=== PATIENT | female | born 1955 | race Caucasian/White ===

== ENCOUNTER 2020-08-06 13:45 | Outpatient (REF) | payer MEDICARE, SELFPAY ==
[2020-08-06 17:03] LABS: Anion Gap 18 (12-20); Blood Urea Nitrogen 17 mg/dL (9-16); Calcium 8.9 mg/dL (8.4-10.2); Carbon Dioxide 23 mmol/L (22-29); Chloride 107 mmol/L (96-108); Cholesterol 159 mg/dL; Estimated Glomerular Filt Rate 57; Glucose Fasting 94 mg/dL (60-99); HDL Cholesterol 48 mg/dL; LDL Cholesterol Calculated 82 mg/dl; Sodium 143 mmol/L (135-145); Triglycerides 149 mg/dL
== END 2020-08-06 13:46 | disposition home or self-care (01) ==
LOC: HO.HMGCLDS 13:45
PROVIDERS: PCP Internal Medicine; Visit Provider Internal Medicine
DX: E78.9 Disorder of lipoprotein metabolism, unspecified (principal); I10 Essential (primary) hypertension; F41.1 Generalized anxiety disorder; G47.9 Sleep disorder, unspecified; R10.13 Epigastric pain; Z72.0 Tobacco use
CPT/HCPCS: 36415; 80048; 80061

== ENCOUNTER 2021-02-27 12:06 | Outpatient (REF) | payer MEDICARE, SELFPAY ==
[2021-02-27 14:00] LABS: MANUAL DIFF FLAG NO
[2021-02-27 14:33] LABS: Alanine Aminotransferase 16 U/L (0-31); Albumin Level 3.9 g/dL (3.5-5.0); Alkaline Phosphatase 91 U/L (39-117); Anion Gap 14 (12-20); Aspartate Amino Transferase 16 U/L (5-31); Bilirubin Total 0.6 mg/dL (0.0-1.0); Blood Urea Nitrogen 13 mg/dL (9-16); Calcium 9.4 mg/dL (8.4-10.2); Carbon Dioxide 24 mmol/L (22-29); Chloride 110 mmol/L (96-108); Cholesterol 142 mg/dL; Estimated Glomerular Filt Rate > 60; Glucose Fasting 106 mg/dL (60-99); HDL Cholesterol 47 mg/dL; LDL Cholesterol Calculated 74 mg/dl; Potassium 4.1 mmol/L (3.3-5.1); Sodium 144 mmol/L (135-145); Total Protein 6.2 g/dL (6.5-8.0); Triglycerides 107 mg/dL
[2021-02-27 14:40] LABS: Basophils Absolute Auto 0.1 X10*3/uL (0.0-0.2); Basophils Percent Auto 0.6 % (0-2); Eosinophils Absolute Auto 0.4 X10*3/uL (0.0-0.4); Eosinophils Percent Auto 4.7 % (0-4); Hematocrit 39.7 % (37-47); Hemoglobin 13.1 g/dl (12.0-16.0); Imm Gran Abs Auto 0.04 X10*3/uL (0.00-0.03); Imm Gran Pct Auto 0.5 % (0.0-0.4); Lymphocytes Percent Auto 23.3 % (20-40); Mean Corpuscular Hemoglobin 31.1 pg (27.0-33.0); Mean Corpuscular Volume 94.3 fL (80-98); Mean Platelet Volume 9.7 fL (9.4-12.3); Monocytes Absolute Auto 0.5 X10*3/uL (0.1-1.2); Monocytes Percent Auto 5.7 % (2-11); Neutrophils Absolute Auto 5.7 X10*3/uL (2.0-8.3); Neutrophils Percent Auto 65.2 % (45-73); Platelet Count 309 X10*3/uL (160-400); Red Blood Count 4.21 X10*6/uL (4.20-5.50); White Blood Count 8.8 X10*3/uL (4.8-10.8)
== END 2021-02-27 12:07 | disposition home or self-care (01) ==
LOC: HO.HMGCLDS 12:06
PROVIDERS: PCP Internal Medicine; Visit Provider Internal Medicine
DX: E78.9 Disorder of lipoprotein metabolism, unspecified (principal); I10 Essential (primary) hypertension; F41.1 Generalized anxiety disorder; G47.9 Sleep disorder, unspecified; R10.13 Epigastric pain; Z72.0 Tobacco use
CPT/HCPCS: 36415; 80053; 80061; 85025

== ENCOUNTER 2021-10-21 13:54 | Outpatient (REF) | payer MEDICARE, SELFPAY ==
[2021-10-21 16:18] LABS: MANUAL DIFF FLAG NO
[2021-10-21 16:23] LABS: Basophils Absolute Auto 0.1 X10*3/uL (0.0-0.2); Basophils Percent Auto 0.5 % (0-2); Eosinophils Absolute Auto 0.4 X10*3/uL (0.0-0.4); Eosinophils Percent Auto 4.1 % (0-4); Hematocrit 39.8 % (37.0-47.0); Hemoglobin 13.1 g/dl (12.0-16.0); Imm Gran Abs Auto 0.03 X10*3/uL (0.00-0.03); Imm Gran Pct Auto 0.3 % (0.0-0.4); Lymphocytes Absolute Auto 2.6 X10*3/uL (1.2-4.9); Lymphocytes Percent Auto 24.7 % (20-40); Mean Corpuscular HGB Conc 32.9 g/dl (31.0-35.0); Mean Corpuscular Hemoglobin 31.5 pg (27.0-33.0); Mean Corpuscular Volume 95.7 fL (80.0-98.0); Mean Platelet Volume 9.7 fL (9.4-12.3); Monocytes Absolute Auto 0.7 X10*3/uL (0.1-1.2); Monocytes Percent Auto 6.6 % (2-11); Neutrophils Absolute Auto 6.7 x10*3/uL (2.0-8.3); Neutrophils Percent Auto 63.8 % (45-73); Platelet Count 323 X10*3/uL (160-400); Red Blood Count 4.16 X10*6/uL (4.20-5.50); Red Cell Distribution Width 13.5 % (11.0-16.0); White Blood Count 10.5 X10*3/uL (4.8-10.8)
[2021-10-21 16:37] LABS: Alanine Aminotransferase 20 U/L (0-31); Albumin Level 3.8 g/dL (3.5-5.0); Alkaline Phosphatase 110 U/L (39-117); Anion Gap 13 (12-20); Aspartate Amino Transferase 18 U/L (5-31); Bilirubin Total 0.5 mg/dL (0.0-1.0); Blood Urea Nitrogen 13 mg/dL (9-16); Carbon Dioxide 22 mmol/L (22-29); Chloride 113 mmol/L (96-108); Cholesterol 152 mg/dL; Estimated Glomerular Filt Rate > 60; Glucose Fasting 119 mg/dL (60-99); HDL Cholesterol 45 mg/dL; LDL Cholesterol Calculated 86 mg/dl; Potassium 3.6 mmol/L (3.3-5.1); Sodium 144 mmol/L (135-145); Total Protein 6.5 g/dL (6.5-8.0); Triglycerides 106 mg/dL
== END 2021-10-21 13:55 | disposition home or self-care (01) ==
LOC: HO.HMGCLDS 13:54
PROVIDERS: PCP Internal Medicine; Visit Provider Internal Medicine
DX: R10.13 Epigastric pain (principal); I10 Essential (primary) hypertension; F41.1 Generalized anxiety disorder; E78.9 Disorder of lipoprotein metabolism, unspecified; G47.9 Sleep disorder, unspecified; Z72.0 Tobacco use
CPT/HCPCS: 36415; 80053; 80061; 85025

== ENCOUNTER 2022-02-18 14:49 | Outpatient (REF) | payer MEDICARE, SELFPAY ==
[2022-02-18 16:50] LABS: Estimated Average Glucose 105 mg/dL; Hemoglobin A1c % 5.3 %
[2022-02-18 16:54] LABS: Alanine Aminotransferase 20 U/L (0-31); Albumin Level 4.1 g/dL (3.5-5.0); Alkaline Phosphatase 101 U/L (39-117); Anion Gap 17 (12-20); Aspartate Amino Transferase 19 U/L (5-31); Bilirubin Total 0.4 mg/dL (0.0-1.0); Blood Urea Nitrogen 23 mg/dL (9-16); Calcium 9.2 mg/dL (8.4-10.2); Carbon Dioxide 24 mmol/L (22-29); Chloride 107 mmol/L (96-108); Estimated Glomerular Filt Rate 33; Glucose Random 128 mg/dL (60-115); Potassium 4.3 mmol/L (3.3-5.1); Sodium 144 mmol/L (135-145)
== END 2022-02-18 14:50 | disposition home or self-care (01) ==
LOC: HO.HMGCLDS 14:49
PROVIDERS: PCP Internal Medicine; Visit Provider Internal Medicine
DX: E78.9 Disorder of lipoprotein metabolism, unspecified (principal); F41.1 Generalized anxiety disorder; G47.9 Sleep disorder, unspecified; R10.13 Epigastric pain; R73.03 Prediabetes; I10 Essential (primary) hypertension
CPT/HCPCS: 36415; 80053; 83036

== ENCOUNTER 2022-03-04 10:29 | Outpatient (REF) | payer MEDICARE, SELFPAY ==
[2022-03-04 14:26] LABS: Anion Gap 17 (12-20); Blood Urea Nitrogen 20 mg/dL (9-16); Carbon Dioxide 25 mmol/L (22-29); Chloride 107 mmol/L (96-108); Estimated Glomerular Filt Rate 49; Potassium 4.1 mmol/L (3.3-5.1); Sodium 145 mmol/L (135-145)
== END 2022-03-04 10:30 | disposition home or self-care (01) ==
LOC: HO.HMGCLDS 10:29
PROVIDERS: PCP Internal Medicine; Visit Provider Internal Medicine
DX: R79.89 Other specified abnormal findings of blood chemistry (principal)
CPT/HCPCS: 36415; 80051; 82565; 84520

== ENCOUNTER 2022-08-28 12:43 | Outpatient (REF) | payer MEDICARE, SELFPAY ==
[2022-08-28 14:15] LABS: MANUAL DIFF FLAG NO
[2022-08-28 14:22] LABS: Basophils Percent Auto 0.3 % (0-2); Eosinophils Absolute Auto 0.4 X10*3/uL (0.0-0.4); Eosinophils Percent Auto 4.2 % (0-4); Hematocrit 41.7 % (37.0-47.0); Hemoglobin 13.4 g/dl (12.0-16.0); Imm Gran Abs Auto 0.04 X10*3/uL (0.00-0.03); Imm Gran Pct Auto 0.4 % (0.0-0.4); Lymphocytes Absolute Auto 2.2 X10*3/uL (1.2-4.9); Lymphocytes Percent Auto 23.6 % (20-40); Mean Corpuscular HGB Conc 32.1 g/dl (31.0-35.0); Mean Corpuscular Hemoglobin 31.1 pg (27.0-33.0); Mean Corpuscular Volume 96.8 fL (80.0-98.0); Mean Platelet Volume 10.1 fL (9.4-12.3); Monocytes Absolute Auto 0.7 X10*3/uL (0.1-1.2); Monocytes Percent Auto 7.9 % (2-11); Neutrophils Absolute Auto 5.9 x10*3/uL (2.0-8.3); Neutrophils Percent Auto 63.6 % (45-73); Platelet Count 299 X10*3/uL (160-400); Red Blood Count 4.31 X10*6/uL (4.20-5.50); Red Cell Distribution Width 13.8 % (11.0-16.0); White Blood Count 9.3 X10*3/uL (4.8-10.8)
[2022-08-28 14:53] LABS: Alanine Aminotransferase 16 U/L (0-31); Albumin Level 3.9 g/dL (3.5-5.0); Alkaline Phosphatase 83 U/L (39-117); Anion Gap 13 (12-20); Aspartate Amino Transferase 16 U/L (5-31); Bilirubin Total 0.4 mg/dL (0.0-1.0); Blood Urea Nitrogen 26 mg/dL (9-16); Carbon Dioxide 25 mmol/L (22-29); Chloride 111 mmol/L (96-108); Estimated Glomerular Filt Rate 41; Glucose Random 118 mg/dL (60-115); Potassium 4.5 mmol/L (3.3-5.1); Sodium 144 mmol/L (135-145); Total Protein 6.6 g/dL (6.5-8.0)
== END 2022-08-28 12:44 | disposition home or self-care (01) ==
LOC: HO.HMGCLDS 12:43
PROVIDERS: Visit Provider Internal Medicine
DX: E78.9 Disorder of lipoprotein metabolism, unspecified (principal); G47.9 Sleep disorder, unspecified; I10 Essential (primary) hypertension; R10.13 Epigastric pain; R39.15 Urgency of urination; R73.03 Prediabetes; F41.1 Generalized anxiety disorder
CPT/HCPCS: 36415; 80053; 85025

== ENCOUNTER 2022-12-22 15:02 | Outpatient (AMB) | payer MEDICARE, SELFPAY ==
[2022-12-22 15:03] VITALS: BP 116/70; PULSE 102; O2SAT 94; BMI 35.9
--- NOTE | 2022-12-22 15:03 | A.OFFPC_ITS ---
Vital Signs 12/22/22 15:03 Height 5 ft 2 in Weight 196 lb 2 oz BMI 35.9 BP 116/70 Blood Pressure Location Rt brachial Position Sitting Pulse 102 H Pulse Source Pulse Oximeter Pulse Oximetry (%) 94 Oxygen Delivery Method Room Air Intake Visit Reasons: Medication follow up Allergies tetracycline Allergy (Unknown, Verified 12/22/22 15:04) rash Medication List - Last Reconciled 12/22/22 by Corwin Samson MD albuterol sulfate 90 mcg/actuation (ProAir HFA) 1 inh inhalation QID PRN 30 days amlodipine 5 mg PO DAILY 90 days aspirin 1 tab PO DAILY 90 days atorvastatin 80 mg PO DAILY 30 days [Bp Monitor As directed] clopidogrel 75 mg PO DAILY commode (bedside commode) As directed duloxetine 30 mg PO QAM lisinopril 40 mg PO DAILY 30 days metoprolol tartrate 50 mg PO BID mirtazapine 30 mg PO BEDTIME omeprazole 20 mg PO DAILY walker wheeled walker with seat and brakes Tobacco use date assessed: 12/22/22 Fall risk assessment: No Falls in past year Last assessed Fall Risk: 12/22/22 Dental Screening Dental Screen Date: 12/22/22 Did you have a dental visit in the last 12 months?: No Did you have a dental problem in the last 6 months where you did not have access to dental care?: No Was dental information given to patient?: No HPI Medication follow up HPI0 Details Patient is 67-year-old female came in today for her regular follow-up visit. Patient is complaining that she cannot hear out of her left ear on examination her neck ear is filled with backs and right ear was excessive backs Her ears were irrigated today with good result Blood pressure is stable, patient is on amlodipine 10 mg daily and lisinopril 40 mg no side effects patient is tolerating medication.? Impaired fasting sugar:? Diet-controlled Patient is doing well with mirtazapine at night to sleep in duloxetine 30 mg for depression.? Moods are stable.? Patient is also on metoprolol and clopidogrel along with atorvastatin 80 mg she has a history of CVA. Patient is ex-smoker GERD is stable with omeprazole. BMI is elevated need to lose weight Follow-up 3 months.?? [facility] Medical History Anxiety, generalized Difficulty sleeping Dyspepsia History of stroke Hypertension, essential Lipid disorder Tobacco abuse Family History Father No problems noted. Mother No problems noted. Brother No problems noted. Son No problems noted. Daughter No problems noted. Sister No problems noted. Sister No problems noted. Other Mental health disorder Substance use disorder Social History Housing: Apartment Alcohol intake: former Year quit: 2019 Patient Tobacco Use Status: Former Tobacco user Cigarette Packs Per Day: 0.5 e-Cigarette/Vaping Use: Never Used service: No Current occupational status: retired Cognitive needs: No Hearing needs: No Vision needs: No Questionnaire Thrive Questionnaire Date Thrive assessed: 02/18/22 AUDIT C Alcohol Use Questionnaire (AUDIT-C) 1. How often do you have a drink containing alcohol?: Never 3. How often do you have six or more drinks on one occasion?: Never Total Score: 0 Score Reviewed/Action Taken: Yes DAYANA-7 AMB Questionnaire DAYANA-7 Date DAYANA - 7 assessed: 02/18/22 Source: Developed by Drs. Joe Sanches, Breann Lee, Byron Garza and colleagues, with an educational jah from [employer]. Review of Systems Const Denies chills and Denies fever(s) ENT Denies epistaxis and Denies nasal discharge Card Denies chest pain Resp Denies chest congestion, Denies cough and Denies hemoptysis GI Denies diarrhea and Denies nausea Skin/Breast Denies rash Neuro Reports no additional complaints Psych Reports no additional complaints Endo Reports no additional complaints Physical exam (Primary Care) Vital Signs: Last Vital Signs Pulse 102 H 12/22/22 15:03 BP 116/70 12/22/22 15:03 Pulse Ox 94 12/22/22 15:03 Oxygen Delivery Method Room Air 12/22/22 15:03 BMI result Body Mass Index 35.9 Tobacco/Smoking Status: Tobacco use Status Tobacco use date assessed 12/22/22 12/22/22 15:05 Patient Tobacco Use Status Former Tobacco user 12/22/22 15:05 e-Cigarette/Vaping Use Never Used 12/22/22 15:05 Thrive Assessment: Date of Thrive Assessment Date Thrive assessed 02/18/22 12/22/22 15:05 Const General: cooperative, comfortable and no acute distress Orientation/consciousness: patient oriented x3 HENMT Other: Both ears are filled with cerumen Head: Yes normocephalic Eyes General: appearance normal, both eyes and all related structures Neck Neck: Yes supple Resp Effort & Inspection: normal respiratory effort, no cough and no stridor Cardio Rhythm: regular rhythm Heart sounds: S1 normal heart sound present and S2 normal heart sound present Skin General skin exam: turgor normal Neuro General: patient oriented x3, tone normal and moves all extremities Extrem Right lower extremity: no edema Left lower extremity: no edema Office Procedures Cerumen Removal From which ear canal was the cerumen removed: bilateral Removal: irrigation Notes: no complications and ear canal clear [id number] Irrigation/Lavage Assessment and Plan Assessment & Plan (1) Hypertension, essential: Code(s): I10 - Essential (primary) hypertension (2) Lipid disorder: Code(s): E78.9 - Disorder of lipoprotein metabolism, unspecified (3) Anxiety, generalized: Code(s): F41.1 - Generalized anxiety disorder (4) Difficulty sleeping: Code(s): G47.9 - Sleep disorder, unspecified (5) Dyspepsia: Code(s): R10.13 - Epigastric pain (6) Pre-diabetes: Code(s): R73.03 - Prediabetes (7) Impacted cerumen, bilateral: Code(s): H61.23 - Impacted cerumen, bilateral Plan Patient is 67-year-old female came in today for her regular follow-up visit. Patient is complaining that she cannot hear out of her left ear on examination her neck ear is filled with backs and right ear was excessive backs Her ears were irrigated today with good result Blood pressure is stable, patient is on amlodipine 10 mg daily and lisinopril 40 mg no side effects patient is tolerating medication.? Impaired fasting sugar:? Diet-controlled Patient is doing well with mirtazapine at night to sleep in duloxetine 30 mg for depression.? Moods are stable.? Patient is also on metoprolol and clopidogrel along with atorvastatin 80 mg she has a history of CVA. Patient is ex-smoker GERD is stable with omeprazole. BMI is elevated need to lose weight Follow-up 3 months.?? Coding Level of Care Code Est Pt Level 4 (24978) Diagnoses Hypertension, essential I10 Lipid disorder E78.9 Anxiety, generalized F41.1 Difficulty sleeping G47.9 Dyspepsia R10.13 Pre-diabetes R73.03 Impacted cerumen, bilateral H61.23 CPT Codes Office Procedure - CPT: 27411-Kcr Irrigation/Lavage ([id number])
== END 2022-12-22 15:48 | disposition home or self-care (01) ==
PROVIDERS: Visit Provider Internal Medicine
DX: I10 Essential (primary) hypertension (principal); E78.9 Disorder of lipoprotein metabolism, unspecified; F41.1 Generalized anxiety disorder; G47.9 Sleep disorder, unspecified; R10.13 Epigastric pain; R73.03 Prediabetes; H61.23 Impacted cerumen, bilateral
CPT/HCPCS: 69209; 99214

== ENCOUNTER 2023-03-24 15:34 | Outpatient (AMB) | payer MEDICARE, SELFPAY ==
[2023-03-24 15:39] VITALS: BP 98/62; PULSE 89; O2SAT 95; BMI 35.9
--- NOTE | 2023-03-24 15:39 | A.OFFPC_ITS ---
Vital Signs 03/24/23 15:39 Height 5 ft 2 in Weight 196 lb 6 oz BMI 35.9 BP 98/62 Blood Pressure Location Rt brachial Position Sitting Pulse 89 Pulse Source Pulse Oximeter Pulse Oximetry (%) 95 Oxygen Delivery Method Room Air Intake Visit Reasons: 3 mo Allergies tetracycline Allergy (Unknown, Verified 03/24/23 15:42) rash Medication List - Last Reconciled 03/24/23 by Corwin Samson MD albuterol sulfate 90 mcg/actuation (ProAir HFA) 1 inh inhalation QID PRN 30 days amlodipine 5 mg PO DAILY 90 days aspirin 1 tab PO DAILY 90 days atorvastatin 80 mg PO DAILY 90 days [Bp Monitor As directed] clopidogrel 75 mg PO DAILY commode (bedside commode) As directed duloxetine 30 mg PO QAM lisinopril 40 mg PO DAILY 90 days metoprolol tartrate 50 mg PO BID mirtazapine 30 mg PO BEDTIME omeprazole 20 mg PO DAILY walker wheeled walker with seat and brakes Tobacco use date assessed: 03/24/23 Fall risk assessment: No Falls in past year Last assessed Fall Risk: 03/24/23 Dental Screening Dental Screen Date: 03/24/23 Did you have a dental visit in the last 12 months?: No Did you have a dental problem in the last 6 months where you did not have access to dental care?: No Was dental information given to patient?: Patient declined HPI 3 mo HPI Details Patient is 67-year-old female came in today for her regular follow-up visit. Patient says that when she is in shower and she wash her hair she start getting very dizzy and then nauseous and sometime she will med Otherwise she is okay I have sent meclizine she is to take that 1 hour before the shower I would recommend that she sit-down when she is taking a shower and do not move her head too much while shampooing I also noticed that her blood pressure is running low and it is 98/62 today. I am holding her amlodipine she may continue with lisinopril 40 mg and me toprolol.? Impaired fasting sugar:? Diet-controlled Patient is doing well with mirtazapine at night to sleep in duloxetine 30 mg for depression.? Moods are stable.? Patient is also on metoprolol and clopidogrel along with atorvastatin 80 mg she has a history of CVA. Patient is ex-smoker GERD is stable with omeprazole. BMI is elevated need to lose weight Follow-up 3 months.?? [facility] Medical History Lipid disorder Hypertension, essential Anxiety, generalized History of stroke Difficulty sleeping Dyspepsia Tobacco abuse Family History Father No problems noted. Mother No problems noted. Brother No problems noted. Son No problems noted. Daughter No problems noted. Sister No problems noted. Sister No problems noted. Other Mental health disorder Substance use disorder Social History Housing: Apartment Alcohol intake: former Year quit: 2019 Patient Tobacco Use Status: Former Tobacco user Cigarette Packs Per Day: 0.5 e-Cigarette/Vaping Use: Never Used service: No Current occupational status: retired Cognitive needs: No Hearing needs: No Vision needs: No Questionnaire Thrive Questionnaire Date Thrive assessed: 02/18/22 AUDIT C Alcohol Use Questionnaire (AUDIT-C) 1. How often do you have a drink containing alcohol?: Never 3. How often do you have six or more drinks on one occasion?: Never Total Score: 0 Score Reviewed/Action Taken: Yes DAYANA-7 AMB Questionnaire DAYANA-7 Date DAYANA - 7 assessed: 02/18/22 Source: Developed by Drs. Joe Sanches, Breann Lee, Byron Garza and colleagues, with an educational jah from [employer]. Review of Systems Const Denies chills and Denies fever(s) ENT Denies epistaxis and Denies nasal discharge Card Denies chest pain Resp Denies chest congestion, Denies cough and Denies hemoptysis GI Denies diarrhea and Denies nausea Skin/Breast Denies rash Neuro Reports no additional complaints Psych Reports no additional complaints Endo Reports no additional complaints Physical exam (Primary Care) Vital Signs: Last Vital Signs Pulse 89 03/24/23 15:39 BP 98/62 03/24/23 15:39 Pulse Ox 95 03/24/23 15:39 Oxygen Delivery Method Room Air 03/24/23 15:39 BMI result Body Mass Index 35.9 Tobacco/Smoking Status: Tobacco use Status Tobacco use date assessed 03/24/23 03/24/23 15:43 Patient Tobacco Use Status Former Tobacco user 03/24/23 15:43 e-Cigarette/Vaping Use Never Used 03/24/23 15:43 Thrive Assessment: Date of Thrive Assessment Date Thrive assessed 02/18/22 03/24/23 15:43 Const General: cooperative, comfortable and no acute distress Orientation/consciousness: patient oriented x3 HENMT Other: No signs of ear infection Head: Yes normocephalic Eyes General: appearance normal, both eyes and all related structures Neck Neck: Yes supple Resp Effort & Inspection: normal respiratory effort, no cough and no stridor Cardio Rhythm: regular rhythm Heart sounds: S1 normal heart sound present and S2 normal heart sound present Skin General skin exam: turgor normal Neuro Other: Vertigo test positive General: patient oriented x3, tone normal and moves all extremities Extrem Right lower extremity: no edema Left lower extremity: no edema Assessment and Plan Assessment & Plan (1) Hypertension, essential: Code(s): I10 - Essential (primary) hypertension (2) Anxiety, generalized: Code(s): F41.1 - Generalized anxiety disorder (3) Vertigo: Code(s): R42 - Dizziness and giddiness (4) Lipid disorder: Code(s): E78.9 - Disorder of lipoprotein metabolism, unspecified (5) Pre-diabetes: Code(s): R73.03 - Prediabetes (6) Difficulty sleeping: Code(s): G47.9 - Sleep disorder, unspecified (7) Dyspepsia: Code(s): R10.13 - Epigastric pain Plan Patient is 67-year-old female came in today for her regular follow-up visit. Patient says that when she is in shower and she wash her hair she start getting very dizzy and then nauseous and sometime she will med Otherwise she is okay I have sent meclizine she is to take that 1 hour before the shower I would recommend that she sit-down when she is taking a shower and do not move her head too much while shampooing I also noticed that her blood pressure is running low and it is 98/62 today. I am holding her amlodipine she may continue with lisinopril 40 mg and metoprolol.? Impaired fasting sugar:? Diet-controlled Patient is doing well with mirtazapine at night to sleep in duloxetine 30 mg for depression.? Moods are stable.? Patient is also on metoprolol and clopidogrel along with atorvastatin 80 mg she has a history of CVA. Patient is ex-smoker GERD is stable with omeprazole. BMI is elevated need to lose weight Follow-up 3 months.?? Orders: Orders Complete Blood Count Auto Diff Today E78.9 - Disorder of lipoprotein metabolism, unspecified, F41.1 - Generalized anxiety disorder, G47.9 - Sleep disorder, unspecified, I10 - Essential (primary) hypertension, R10.13 - Epigastric pain, R73.03 - Prediabetes Comprehensive Met. Panel Today E78.9 - Disorder of lipoprotein metabolism, unspecified, F41.1 - Generalized anxiety disorder, G47.9 - Sleep disorder, unspecified, I10 - Essential (primary) hypertension, R10.13 - Epigastric pain, R73.03 - Prediabetes Medications: New meclizine 25 mg PO DAILY PRN 30 tabs 0RF 1 hour before shower On Hold amlodipine Hold Comment: Doctor's Order 5 mg PO DAILY 90 days 90 tabs 1RF Coding Level of Care Code Est Pt Level 4 (93793) Diagnoses Hypertension, essential I10 Anxiety, generalized F41.1 Vertigo R42 Lipid disorder E78.9 Pre-diabetes R73.03 Difficulty sleeping G47.9 Dyspepsia R10.13
== END 2023-03-24 15:55 | disposition home or self-care (01) ==
PROVIDERS: PCP Internal Medicine; Visit Provider Internal Medicine
DX: I10 Essential (primary) hypertension (principal); F41.1 Generalized anxiety disorder; R42 Dizziness and giddiness; E78.9 Disorder of lipoprotein metabolism, unspecified; R73.03 Prediabetes; G47.9 Sleep disorder, unspecified; R10.13 Epigastric pain
CPT/HCPCS: 99214

== ENCOUNTER 2023-04-06 14:29 | Outpatient (REF) | payer MEDICARE, SELFPAY ==
[2023-04-06 16:19] LABS: MANUAL DIFF FLAG NO
[2023-04-06 16:46] LABS: Basophils Percent Auto 0.2 % (0-2); Eosinophils Absolute Auto 0.1 X10*3/uL (0.0-0.4); Eosinophils Percent Auto 0.6 % (0-4); Hematocrit 41.3 % (37.0-47.0); Hemoglobin 13.6 g/dl (12.0-16.0); Imm Gran Abs Auto 0.09 X10*3/uL (0.00-0.03); Imm Gran Pct Auto 0.7 % (0.0-0.4); Lymphocytes Absolute Auto 1.8 X10*3/uL (1.2-4.9); Lymphocytes Percent Auto 14.4 % (20-40); Mean Corpuscular HGB Conc 32.9 g/dl (31.0-35.0); Mean Corpuscular Hemoglobin 30.8 pg (27.0-33.0); Mean Corpuscular Volume 93.4 fL (80.0-98.0); Mean Platelet Volume 9.7 fL (9.4-12.3); Monocytes Absolute Auto 0.8 X10*3/uL (0.1-1.2); Monocytes Percent Auto 6.1 % (2-11); Neutrophils Absolute Auto 9.8 x10*3/uL (2.0-8.3); Platelet Count 297 X10*3/uL (160-400); Red Blood Count 4.42 X10*6/uL (4.20-5.50); Red Cell Distribution Width 14.6 % (11.0-16.0); White Blood Count 12.5 X10*3/uL (4.8-10.8)
[2023-04-06 17:03] LABS: Alanine Aminotransferase 17 U/L (0-31); Albumin Level 3.9 g/dL (3.5-5.0); Alkaline Phosphatase 88 U/L (39-117); Anion Gap 17 (12-20); Aspartate Amino Transferase 18 U/L (5-31); Bilirubin Total 0.3 mg/dL (0.0-1.0); Blood Urea Nitrogen 23 mg/dL (9-16); Carbon Dioxide 22 mmol/L (22-29); Chloride 108 mmol/L (96-108); Estimated Glomerular Filt Rate 54; Glucose Random 109 mg/dL (60-115); Sodium 143 mmol/L (135-145)
== END 2023-04-06 14:30 | disposition home or self-care (01) ==
LOC: HO.HMGCLDS 14:29
PROVIDERS: PCP Internal Medicine; Visit Provider Internal Medicine
DX: I10 Essential (primary) hypertension (principal); F41.1 Generalized anxiety disorder; E78.9 Disorder of lipoprotein metabolism, unspecified; R73.03 Prediabetes; G47.9 Sleep disorder, unspecified; R10.13 Epigastric pain
CPT/HCPCS: 36415; 80053; 85025

== ENCOUNTER 2023-04-08 08:13 | Outpatient (AMB) | payer MEDICARE, SELFPAY ==
--- NOTE | 2023-04-08 08:53 | A.OFFPC_ITS ---
Intake Visit Reasons: 2W follow up Allergies tetracycline Allergy (Unknown, Verified 04/08/23 08:54) rash Medication List - Last Reconciled 04/08/23 by Corwin Samson MD albuterol sulfate 90 mcg/actuation (ProAir HFA) 1 inh inhalation QID PRN 30 days aspirin 1 tab PO DAILY 90 days atorvastatin 80 mg PO DAILY 90 days [Bp Monitor As directed] clopidogrel 75 mg PO DAILY commode (bedside commode) As directed duloxetine 30 mg PO QAM lisinopril 40 mg PO DAILY 90 days meclizine 25 mg PO DAILY PRN metoprolol tartrate 50 mg PO BID mirtazapine 30 mg PO BEDTIME omeprazole 20 mg PO DAILY walker wheeled walker with seat and brakes Tobacco use date assessed: 04/08/23 Fall risk assessment: No Falls in past year Last assessed Fall Risk: 04/08/23 Dental Screening Dental Screen Date: 04/08/23 Did you have a dental visit in the last 12 months?: No Did you have a dental problem in the last 6 months where you did not have access to dental care?: No Was dental information given to patient?: No HPI 2W follow up HPI Details Patient was complaining of severe dizziness when I saw her last few days ago I have sent meclizine 25 mg, patient says that her pharmacy has not mail it to her yet I have sent the medication to her local pharmacy so she can pick it up and start taking it. I also held amlodipine that she was taking for blood pressure , I have told her to monitor blood pressure at home so we know that her blood pressure is running fine , she is still taking lisinopril 40 mg and metoprolol 50 mg b.i.d. But patient has not done that yet. She says that her daughter can check her blood pressure she will have her start monitoring it. We will book another appointment in 2 weeks to follow-up [facility] Medical History Lipid disorder Hypertension, essential Anxiety, generalized History of stroke Difficulty sleeping Dyspepsia Tobacco abuse Family History Father No problems noted. Mother No problems noted. Brother No problems noted. Son No problems noted. Daughter No problems noted. Sister No problems noted. Sister No problems noted. Other Mental health disorder Substance use disorder Social History Housing: Apartment Alcohol intake: former Year quit: 2019 Patient Tobacco Use Status: Former Tobacco user Cigarette Packs Per Day: 0.5 e-Cigarette/Vaping Use: Never Used service: No Current occupational status: retired Cognitive needs: No Hearing needs: No Vision needs: No Questionnaire Thrive Questionnaire Date Thrive assessed: 02/18/22 AUDIT C Alcohol Use Questionnaire (AUDIT-C) 1. How often do you have a drink containing alcohol?: Never 3. How often do you have six or more drinks on one occasion?: Never Total Score: 0 Score Reviewed/Action Taken: Yes DAYANA-7 AMB Questionnaire DAYANA-7 Date DAYANA - 7 assessed: 02/18/22 Source: Developed by Drs. Joe Sanches, Breann Lee, Byron Garza and colleagues, with an educational jah from [employer]. Review of Systems Const Denies chills and Denies fever(s) ENT Denies epistaxis and Denies nasal discharge Card Denies chest pain Resp Denies chest congestion, Denies cough and Denies hemoptysis GI Denies diarrhea and Denies nausea Skin/Breast Denies rash Neuro Reports no additional complaints Psych Reports no additional complaints Endo Reports no additional complaints Physical exam (Primary Care) Tobacco/Smoking Status: Tobacco use Status Tobacco use date assessed 04/08/23 04/08/23 08:55 Patient Tobacco Use Status Former Tobacco user 04/08/23 08:55 e-Cigarette/Vaping Use Never Used 04/08/23 08:55 Thrive Assessment: Date of Thrive Assessment Date Thrive assessed 02/18/22 04/08/23 08:55 Telehealth Telehealth Location of provider rendering services: practice address Location of patient: address on file Patient Identification confirmed using: Name, : Yes Telehealth method: voice only Patient verbally consented to treatment: Yes Patient verbally consented to billing insurance company: Yes Patient informed of any privacy concerns related to visit: Yes Minutes spent on Phone/Video with Pt.: 13 Assessment and Plan Assessment & Plan (1) Vertigo: Code(s): R42 - Dizziness and giddiness (2) Low blood pressure: Code(s): I95.9 - Hypotension, unspecified Qualifiers: Hypotension type: hypotension due to drug Qualified Code(s): I95.2 - Hypotension due to drugs Plan Patient was complaining of severe dizziness when I saw her last few days ago I have sent meclizine 25 mg, patient says that her pharmacy has not mail it to her yet I have sent the medication to her local pharmacy so she can pick it up and start taking it. I also held amlodipine that she was taking for blood pressure , I have told her to monitor blood pressure at home so we know that her blood pressure is running fine , she is still taking lisinopril 40 mg and metoprolol 50 mg b.i.d. But patient has not done that yet. She says that her daughter can check her blood pressure she will have her start monitoring it. We will book another appointment in 2 weeks to follow-up Medications: Refilled meclizine 25 mg PO DAILY PRN 30 tabs 0RF 1 hour before shower meclizine 25 mg PO DAILY PRN 30 tabs 0RF 1 hour before shower meclizine 25 mg PO DAILY PRN 30 tabs 0RF 1 hour before shower Coding Level of Care Code Tele Est Pt Level 3 (56956) Diagnoses Vertigo R42 Hypotension due to drugs I95.2 Hypotension type: hypotension due to drug
== END 2023-04-08 10:04 | disposition home or self-care (01) ==
LOC: HO.HMGC 08:13
PROVIDERS: PCP Internal Medicine; Visit Provider Internal Medicine
DX: R42 Dizziness and giddiness (principal); I95.2 Hypotension due to drugs
CPT/HCPCS: 99442

== ENCOUNTER 2023-06-03 08:33 | Outpatient (AMB) | payer MEDICARE, SELFPAY ==
--- NOTE | 2023-06-03 08:42 | MHC.PC.OV ---
Vital Signs 06/03/23 08:43 Height 5 ft 2 in Intake Visit Reasons: Req Jury Duty Letter~ Allergies tetracycline Allergy (Unknown, Verified 06/03/23 08:43) rash Medication List - Last Reconciled 06/03/23 by Corwin Samson MD albuterol sulfate 90 mcg/actuation (ProAir HFA) 1 inh inhalation QID PRN 30 days aspirin 1 tab PO DAILY 90 days atorvastatin 80 mg PO DAILY 90 days [Bp Monitor As directed] clopidogrel 75 mg PO DAILY commode (bedside commode) As directed duloxetine 30 mg PO QAM lisinopril 40 mg PO DAILY 90 days meclizine 25 mg PO DAILY PRN metoprolol tartrate 50 mg PO BID mirtazapine 30 mg PO BEDTIME omeprazole 20 mg PO DAILY walker wheeled walker with seat and brakes Tobacco use date assessed: 06/03/23 Fall risk assessment: No Falls in past year Last assessed Fall Risk: 06/03/23 Dental Screening Dental Screen Date: 06/03/23 Did you have a dental visit in the last 12 months?: No Did you have a dental problem in the last 6 months where you did not have access to dental care?: No Was dental information given to patient?: No HPI Req Jury Duty Letter~ HPI Details Patient is 68-year-old female this is a tele medicine visit Patient is requesting to be excused from jury duty, on basis of memory issues Patient also have history of stroke and it is difficult for her to sit down for prolonged periods of time. Is she did not remember the date of jury she is going to talk to her daughter and get back to us and we will generate a letter for the patient Badge #:[id number] It will be faxed to [phone] [facility] Medical History Lipid disorder Hypertension, essential Anxiety, generalized History of stroke Difficulty sleeping Dyspepsia Tobacco abuse Family History Father No problems noted. Mother No problems noted. Brother No problems noted. Son No problems noted. Daughter No problems noted. Sister No problems noted. Sister No problems noted. Other Mental health disorder Substance use disorder Social History Housing: Apartment Alcohol intake: former Year quit: 2019 Patient Tobacco Use Status: Former Tobacco user Cigarette Packs Per Day: 0.5 e-Cigarette/Vaping Use: Never Used service: No Current occupational status: retired Cognitive needs: No Hearing needs: No Vision needs: No Questionnaire Thrive Questionnaire Date Thrive assessed: 02/18/22 AUDIT C Alcohol Use Questionnaire (AUDIT-C) 1. How often do you have a drink containing alcohol?: Never 3. How often do you have six or more drinks on one occasion?: Never Total Score: 0 Score Reviewed/Action Taken: Yes DAYANA-7 AMB Questionnaire DAYANA-7 Date DAYANA - 7 assessed: 02/18/22 Source: Developed by Drs. Joe Sanches, Breann Lee, Byron Garza and colleagues, with an educational jah from [employer]. Review of Systems Const Denies chills and Denies fever(s) ENT Denies epistaxis and Denies nasal discharge Card Denies chest pain Resp Denies chest congestion, Denies cough and Denies hemoptysis GI Denies diarrhea and Denies nausea Skin/Breast Denies rash Neuro Reports no additional complaints Psych Reports no additional complaints Endo Reports no additional complaints Physical exam (Primary Care) Tobacco/Smoking Status: Tobacco use Status Tobacco use date assessed 06/03/23 06/03/23 08:44 Patient Tobacco Use Status Former Tobacco user 06/03/23 08:44 e-Cigarette/Vaping Use Never Used 06/03/23 08:44 Thrive Assessment: Date of Thrive Assessment Date Thrive assessed 02/18/22 06/03/23 08:44 Telehealth Telehealth Location of provider rendering services: practice address Location of patient: address on file Patient Identification confirmed using: Name, : Yes Telehealth method: voice only Patient verbally consented to treatment: Yes Patient verbally consented to billing insurance company: Yes Patient informed of any privacy concerns related to visit: Yes Minutes spent on Phone/Video with Pt.: 13 Assessment and Plan Assessment & Plan (1) Memory changes: Code(s): R41.3 - Other amnesia (2) History of stroke: Code(s): Z86.73 - Personal history of transient ischemic attack (TIA), and cerebral infarction without residual deficits Plan Patient is 68-year-old female this is a tele medicine visit Patient is requesting to be excused from jury duty, on basis of memory issues Patient also have history of stroke and it is difficult for her to sit down for prolonged periods of time. Is she did not remember the date of jury she is going to talk to her daughter and get back to us and we will generate a letter for the patient Badge #:[id number] It will be faxed to [phone] Coding Level of Care Code Tele Est Pt Level 3 (79215) Diagnoses Memory changes R41.3 History of stroke Z86.73
== END 2023-06-03 09:33 | disposition home or self-care (01) ==
LOC: HO.HMGC 08:33
PROVIDERS: PCP Internal Medicine; Visit Provider Internal Medicine
DX: R41.3 Other amnesia (principal); Z86.73 Personal history of transient ischemic attack (TIA), and cerebral infarction without residual deficits
CPT/HCPCS: 99442

== ENCOUNTER 2023-06-25 15:12 | Outpatient (AMB) | payer MEDICARE, SELFPAY ==
[2023-06-25 15:28] VITALS: BP 116/74; PULSE 95; O2SAT 92; BMI 36.2
--- NOTE | 2023-06-25 15:28 | A.OFFPC_ITS ---
Vital Signs 06/25/23 15:28 Height 5 ft 2 in Weight 198 lb BMI 36.2 BP 116/74 Blood Pressure Location Lt brachial Position Sitting Pulse 95 Pulse Source Pulse Oximeter Pulse Oximetry (%) 92 Oxygen Delivery Method Room Air Intake Visit Reasons: 6 Month follow up Allergies tetracycline Allergy (Unknown, Verified 06/25/23 15:28) rash Medication List - Last Reconciled 06/25/23 by Corwin Samson MD albuterol sulfate 90 mcg/actuation (ProAir HFA) 1 inh inhalation QID PRN 30 days aspirin 1 tab PO DAILY 90 days atorvastatin 80 mg PO DAILY 90 days [Bp Monitor As directed] clopidogrel 75 mg PO DAILY commode (bedside commode) As directed duloxetine 30 mg PO QAM lisinopril 40 mg PO DAILY 90 days meclizine 25 mg PO DAILY PRN metoprolol tartrate 50 mg PO BID mirtazapine 30 mg PO BEDTIME omeprazole 20 mg PO DAILY walker wheeled walker with seat and brakes Tobacco use date assessed: 06/25/23 Last assessed Fall Risk: 06/25/23 Dental Screening Dental Screen Date: 06/25/23 HPI 6 Month follow up HPI Details Patient is 68-year-old female came in today for her regular follow-up visit. Dizziness is better with meclizine, mostly when she takes shower she feels dizzy She does have a shower stool Hypertension: Continue lisinopril 40 mg and metoprolol.? Impaired fasting sugar:? Diet-controlled Patient is doing well with mirtazapine at night to sleep in duloxetine 30 mg for depression.? Moods are stable.? Patient is also on metoprolol and clopidogrel along with atorvastatin 80 mg she has a history of CVA. Patient is ex-smoker GERD is stable with omeprazole. BMI is elevated need to lose weight Follow-up 3 months.??Labs are needed before visit [facility] Medical History Lipid disorder Hypertension, essential Anxiety, generalized History of stroke Difficulty sleeping Dyspepsia Tobacco abuse Family History Father No problems noted. Mother No problems noted. Brother No problems noted. Son No problems noted. Daughter No problems noted. Sister No problems noted. Sister No problems noted. Other Mental health disorder Substance use disorder Social History Housing: Apartment Alcohol intake: former Year quit: 2019 Patient Tobacco Use Status: Former Tobacco user Cigarette Packs Per Day: 0.5 e-Cigarette/Vaping Use: Never Used service: No Current occupational status: retired Cognitive needs: No Hearing needs: No Vision needs: No Questionnaire Thrive Questionnaire Date Thrive assessed: 02/18/22 AUDIT C Alcohol Use Questionnaire (AUDIT-C) 1. How often do you have a drink containing alcohol?: Never 3. How often do you have six or more drinks on one occasion?: Never Total Score: 0 Score Reviewed/Action Taken: Yes DAYANA-7 AMB Questionnaire DAYANA-7 Date DAYANA - 7 assessed: 02/18/22 Source: Developed by Drs. Joe Sanches, Breann Lee, Byron Garza and colleagues, with an educational jah from [employer]. Review of Systems Const Denies chills and Denies fever(s) ENT Denies epistaxis and Denies nasal discharge Card Denies chest pain Resp Denies chest congestion, Denies cough and Denies hemoptysis GI Denies diarrhea and Denies nausea Skin/Breast Denies rash Neuro Reports no additional complaints Psych Reports no additional complaints Endo Reports no additional complaints Physical exam (Primary Care) Vital Signs: Last Vital Signs Pulse 95 06/25/23 15:28 BP 116/74 06/25/23 15:28 Pulse Ox 92 06/25/23 15:28 Oxygen Delivery Method Room Air 06/25/23 15:28 BMI result Body Mass Index 36.2 Tobacco/Smoking Status: Tobacco use Status Tobacco use date assessed 06/25/23 06/25/23 15:29 Patient Tobacco Use Status Former Tobacco user 06/25/23 15:29 e-Cigarette/Vaping Use Never Used 06/25/23 15:29 Thrive Assessment: Date of Thrive Assessment Date Thrive assessed 02/18/22 06/25/23 15:29 Const General: cooperative, comfortable and no acute distress Orientation/consciousness: patient oriented x3 HENMT Head: Yes normocephalic Eyes General: appearance normal, both eyes and all related structures Neck Neck: Yes supple Resp Effort & Inspection: normal respiratory effort, no cough and no stridor Cardio Rhythm: regular rhythm Heart sounds: S1 normal heart sound present and S2 normal heart sound present Skin General skin exam: turgor normal Neuro General: patient oriented x3, tone normal and moves all extremities Extrem Right lower extremity: no edema Left lower extremity: no edema Assessment and Plan Assessment & Plan (1) Hypertension, essential: Code(s): I10 - Essential (primary) hypertension (2) Lipid disorder: Code(s): E78.9 - Disorder of lipoprotein metabolism, unspecified (3) Anxiety, generalized: Code(s): F41.1 - Generalized anxiety disorder (4) Dyspepsia: Code(s): R10.13 - Epigastric pain (5) Difficulty sleeping: Code(s): G47.9 - Sleep disorder, unspecified (6) History of stroke: Code(s): Z86.73 - Personal history of transient ischemic attack (TIA), and cerebral infarction without residual deficits (7) Pre-diabetes: Code(s): R73.03 - Prediabetes (8) Vertigo: Code(s): R42 - Dizziness and giddiness Plan Patient is 68-year-old female came in today for her regular follow-up visit. Dizziness is better with meclizine, mostly when she takes shower she feels dizzy She does have a shower stool Hypertension: Continue lisinopril 40 mg and metoprolol.? Impaired fasting sugar:? Diet-controlled Patient is doing well with mirtazapine at night to sleep in duloxetine 30 mg for depression.? Moods are stable.? Patient is also on metoprolol and clopidogrel along with atorvastatin 80 mg she has a history of CVA. Patient is ex-smoker GERD is stable with omeprazole. BMI is elevated need to lose weight Follow-up 3 months.??Labs are needed before visit Orders: Orders Complete Blood Count Auto Diff Today E78.9 - Disorder of lipoprotein metabolism, unspecified, F41.1 - Generalized anxiety disorder, G47.9 - Sleep disorder, unspecified, I10 - Essential (primary) hypertension, R10.13 - Epigastric pain, R42 - Dizziness and giddiness, R73.03 - Prediabetes LDL Cholesterol Direct Today E78.9 - Disorder of lipoprotein metabolism, unspecified, F41.1 - Generalized anxiety disorder, G47.9 - Sleep disorder, un specified, I10 - Essential (primary) hypertension, R10.13 - Epigastric pain, R42 - Dizziness and giddiness, R73.03 - Prediabetes Hemoglobin A1c Today R73.03 - Prediabetes Comprehensive Met. Panel Today E78.9 - Disorder of lipoprotein metabolism, unspecified, F41.1 - Generalized anxiety disorder, G47.9 - Sleep disorder, unspecified, I10 - Essential (primary) hypertension, R10.13 - Epigastric pain, R42 - Dizziness and giddiness, R73.03 - Prediabetes Coding Level of Care Code Est Pt Level 4 (50824) Diagnoses Hypertension, essential I10 Lipid disorder E78.9 Anxiety, generalized F41.1 Dyspepsia R10.13 Difficulty sleeping G47.9 History of stroke Z86.73 Pre-diabetes R73.03 Vertigo R42
== END 2023-06-25 16:01 | disposition home or self-care (01) ==
PROVIDERS: PCP Internal Medicine; Visit Provider Internal Medicine
DX: I10 Essential (primary) hypertension (principal); E78.9 Disorder of lipoprotein metabolism, unspecified; F41.1 Generalized anxiety disorder; R10.13 Epigastric pain; G47.9 Sleep disorder, unspecified; Z86.73 Personal history of transient ischemic attack (TIA), and cerebral infarction without residual deficits; R73.03 Prediabetes; R42 Dizziness and giddiness
CPT/HCPCS: 99214

== ENCOUNTER 2023-09-22 14:02 | Outpatient (REF) | payer MEDICARE, SELFPAY ==
[2023-09-22 16:13] LABS: MANUAL DIFF FLAG NO
[2023-09-22 16:21] LABS: Basophils Absolute Auto 0.1 X10*3/uL (0.0-0.2); Basophils Percent Auto 0.5 % (0-2); Eosinophils Absolute Auto 0.3 X10*3/uL (0.0-0.4); Eosinophils Percent Auto 2.4 % (0-4); Hematocrit 45.8 % (37.0-47.0); Hemoglobin 14.9 g/dl (12.0-16.0); Imm Gran Abs Auto 0.08 X10*3/uL (0.00-0.03); Imm Gran Pct Auto 0.7 % (0.0-0.4); Lymphocytes Absolute Auto 1.7 X10*3/uL (1.2-4.9); Lymphocytes Percent Auto 15.6 % (20-40); Mean Corpuscular HGB Conc 32.5 g/dl (31.0-35.0); Mean Corpuscular Hemoglobin 31.1 pg (27.0-33.0); Mean Corpuscular Volume 95.6 fL (80.0-98.0); Mean Platelet Volume 10.3 fL (9.4-12.3); Monocytes Absolute Auto 0.6 X10*3/uL (0.1-1.2); Monocytes Percent Auto 5.7 % (2-11); Neutrophils Absolute Auto 8.2 x10*3/uL (2.0-8.3); Neutrophils Percent Auto 75.1 % (45-73); Platelet Count 315 X10*3/uL (160-400); Red Blood Count 4.79 X10*6/uL (4.20-5.50); Red Cell Distribution Width 15.5 % (11.0-16.0)
[2023-09-22 17:27] LABS: Estimated Average Glucose 114 mg/dL; Hemoglobin A1c % 5.6 % (<6.0)
[2023-09-22 17:41] LABS: Alanine Aminotransferase 19 U/L (0-31); Alkaline Phosphatase 107 U/L (39-117); Anion Gap 20 (12-20); Aspartate Amino Transferase 18 U/L (5-31); Bilirubin Total 0.5 mg/dL (0.0-1.0); Blood Urea Nitrogen 13 mg/dL (9-16); Calcium 9.3 mg/dL (8.4-10.2); Carbon Dioxide 20 mmol/L (22-29); Chloride 110 mmol/L (96-108); Estimated Glomerular Filt Rate 42; Glucose Random 125 mg/dL (60-115); Potassium 4.3 mmol/L (3.3-5.1); Sodium 146 mmol/L (135-145); Total Protein 7.3 g/dL (6.5-8.0)
[2023-09-23 09:47] LABS: LDL Cholesterol Direct 75 mg/dL (<100)
== END 2023-09-22 14:03 | disposition home or self-care (01) ==
LOC: HO.HMGCLDS 14:02
PROVIDERS: PCP Internal Medicine; Visit Provider Internal Medicine
DX: I10 Essential (primary) hypertension (principal); E78.9 Disorder of lipoprotein metabolism, unspecified; F41.1 Generalized anxiety disorder; R10.13 Epigastric pain; G47.9 Sleep disorder, unspecified; R73.03 Prediabetes; R42 Dizziness and giddiness
CPT/HCPCS: 36415; 80053; 83036; 83721; 85025

== ENCOUNTER 2023-09-22 14:16 | Outpatient (AMB) | payer MEDICARE, SELFPAY ==
[2023-09-22 15:09] VITALS: BP 100/58; PULSE 80; O2SAT 93; BMI 36.0
--- NOTE | 2023-09-22 15:09 | MHC.PC.OV ---
Vital Signs 09/22/23 15:09 Height 5 ft 2 in Weight 197 lb BMI 36.0 BP 100/58 L Blood Pressure Location Rt brachial Position Sitting Pulse 80 Pulse Source Pulse Oximeter Pulse Oximetry (%) 93 Oxygen Delivery Method Room Air Intake Visit Reasons: 6 Month follow up Allergies tetracycline Allergy (Unknown, Verified 09/22/23 15:10) rash Medication List - Last Reconciled 09/22/23 by Corwin Samson MD albuterol sulfate 90 mcg/actuation (ProAir HFA) 1 inh inhalation QID PRN 30 days amlodipine 5 mg PO DAILY aspirin 1 tab PO DAILY 90 days atorvastatin 80 mg PO DAILY 90 days [Bp Monitor As directed] clopidogrel 75 mg PO DAILY commode (bedside commode) As directed duloxetine 30 mg PO QAM lisinopril 40 mg PO DAILY 90 days meclizine 25 mg PO DAILY PRN metoprolol tartrate 50 mg PO BID mirtazapine 30 mg PO BEDTIME omeprazole 20 mg PO DAILY walker wheeled walker with seat and brakes Tobacco use date assessed: 09/22/23 Fall risk assessment: No Falls in past year Last assessed Fall Risk: 09/22/23 Dental Screening Dental Screen Date: 09/22/23 Did you have a dental visit in the last 12 months?: Yes Did you have a dental problem in the last 6 months where you did not have access to dental care?: No Was dental information given to patient?: Patient has dentist HPI 6 Month follow up HPI Details Patient is 68-year-old female came in today for her regular follow-up visit. Patient has a longstanding history of smoking she stopped 2 years ago She tells me that she has since high school half a pack per day Patient has noticed that she gets short of breath when she exerts herself Currently only using rescue inhaler, I have sent Combivent inhaler for the patient give it a try She does not want to see a specialist at this time but she will let me know if she changes her mind Dizziness is better with meclizine, mostly when she takes shower she feels dizzy She does have a shower stool Hypertension: Currently patient is taking lisinopril 40 mg metoprolol and amlodipine, her blood pressure has been running low which might be contributing to her dizziness I am reducing the dose of lisinopril to 20 mg Impaired fasting sugar:? Diet-controlled Patient is doing well with mirtazapine at night to sleep in duloxetine 30 mg for depression.? Moods are stable.? Patient is also on clopidogrel along with atorvastatin 80 mg she has a history of CVA. GERD is stable with omeprazole. BMI is elevated need to lose weight Follow-up 3 months.? She adjusted the labs I do not have the report yet [facility] Medical History Lipid disorder Hypertension, essential Anxiety, generalized History of stroke Difficulty sleeping Dyspepsia Tobacco abuse Family History Father No problems noted. Mother No problems noted. Brother No problems noted. Son No problems noted. Daughter No problems noted. Sister No problems noted. Sister No problems noted. Other Mental health disorder Substance use disorder Social History Housing: Apartment Alcohol intake: former Year quit: 2019 Patient Tobacco Use Status: Former Tobacco user Cigarette Packs Per Day: 0.5 e-Cigarette/Vaping Use: Never Used service: No Current occupational status: retired Cognitive needs: No Hearing needs: No Vision needs: No Questionnaire Thrive Questionnaire Date Thrive assessed: 02/18/22 AUDIT C Alcohol Use Questionnaire (AUDIT-C) 1. How often do you have a drink containing alcohol?: Never 3. How often do you have six or more drinks on one occasion?: Never Total Score: 0 Score Reviewed/Action Taken: Yes DAYANA-7 AMB Questionnaire DAYANA-7 Date DAYANA - 7 assessed: 02/18/22 Source: Developed by Drs. Joe Sanches, Breann Lee, Byron Garza and colleagues, with an educational jah from [employer]. Review of Systems Const Denies chills and Denies fever(s) ENT Denies epistaxis and Denies nasal discharge Card Denies chest pain Resp Denies chest congestion, Denies cough and Denies hemoptysis GI Denies diarrhea and Denies nausea Skin/Breast Denies rash Neuro Reports no additional complaints Psych Reports no additional complaints Endo Reports no additional complaints Physical exam (Primary Care) Vital Signs: Last Vital Signs Pulse 80 09/22/23 15:09 BP 100/58 L 09/22/23 15:09 Pulse Ox 93 09/22/23 15:09 Oxygen Delivery Method Room Air 09/22/23 15:09 BMI result Body Mass Index 36.0 Tobacco/Smoking Status: Tobacco use Status Tobacco use date assessed 09/22/23 09/22/23 15:11 Patient Tobacco Use Status Former Tobacco user 09/22/23 15:11 e-Cigarette/Vaping Use Never Used 09/22/23 15:11 Thrive Assessment: Date of Thrive Assessment Date Thrive assessed 02/18/22 09/22/23 15:11 Const General: cooperative, comfortable and no acute distress Orientation/consciousness: patient oriented x3 HENMT Head: Yes normocephalic Eyes General: appearance normal, both eyes and all related structures Neck Neck: Yes supple Resp Effort & Inspection: normal respiratory effort, no cough and no stridor Cardio Rhythm: regular rhythm Heart sounds: S1 normal heart sound present and S2 normal heart sound present Skin General skin exam: turgor normal Neuro General: patient oriented x3, tone normal and moves all extremities Extrem Right lower extremity: no edema Left lower extremity: no edema Assessment and Plan Assessment & Plan (1) Hypertension, essential: Code(s): I10 - Essential (primary) hypertension (2) COPD (chronic obstructive pulmonary disease): Code(s): J44.9 - Chronic obstructive pulmonary disease, unspecified Qualifiers: COPD type: unspecified COPD Qualified Code(s): J44.9 - Chronic obstructive pulmonary disease, unspecified (3) Lipid disorder: Code(s): E78.9 - Disorder of lipoprotein metabolism, unspecified (4) Anxiety, generalized: Code(s): F41.1 - Generalized anxiety disorder (5) Dyspepsia: Code(s): R10.13 - Epigastric pain (6) Difficulty sleeping: Code(s): G47.9 - Sleep disorder, unspecified (7) History of stroke: Code(s): Z86.73 - Personal history of transient ischemic attack (TIA), and cerebral infarction without residual deficits (8) Pre-diabetes: Code(s): R73.03 - Prediabetes (9) Vertigo: Code(s): R42 - Dizziness and giddiness Plan Patient is 68-year-old female came in today for her regular follow-up visit. Patient has a longstanding history of smoking she stopped 2 years ago She tells me that she has since high school half a pack per day Patient has noticed that she gets short of breath when she exerts herself Currently only using rescue inhaler, I have sent Combivent inhaler for the patient give it a try She does not want to see a specialist at this time but she will let me know if she changes her mind Dizziness is better with meclizine, mostly when she takes shower she feels dizzy She does have a shower stool Hypertension: Currently patient is taking lisinopril 40 mg metoprolol and amlodipine, her blood pressure has been running low which might be contributing to her dizziness I am reducing the dose of lisinopril to 20 mg Impaired fasting sugar:? Diet-controlled Patient is doing well with mirtazapine at night to sleep in duloxetine 30 mg for depression.? Moods are stable.? Patient is also on clopidogrel along with atorvastatin 80 mg she has a history of CVA. GERD is stable with omeprazole. BMI is elevated need to lose weight Follow-up 3 months.? She adjusted the labs I do not have the report yet Medications: New Combivent Respimat 20-100 mcg/actuation (ipratropium-albuterol) space evenly during waking hours 1 puff inhalation QID 4 grams 0RF NS Changed From lisinopril 40 mg PO DAILY 90 days 90 tabs 0RF To lisinopril 20 mg PO DAILY 90 tabs 0RF 90 days Coding Level of Care Code Est Pt Level 4 (78329) Diagnoses Hypertension, essential I10 Chronic obstructive pulmonary disease, unspecified COPD type J44.9 COPD type: unspecified COPD Lipid disorder E78.9 Anxiety, generalized F41.1 Dyspepsia R10.13 Difficulty sleeping G47.9 History of stroke Z86.73 Pre-diabetes R73.03 Vertigo R42
== END 2023-09-22 15:26 | disposition home or self-care (01) ==
LOC: HO.HMGC 14:16
PROVIDERS: PCP Internal Medicine; Visit Provider Internal Medicine
DX: I10 Essential (primary) hypertension (principal); J44.9 Chronic obstructive pulmonary disease, unspecified; E78.9 Disorder of lipoprotein metabolism, unspecified; F41.1 Generalized anxiety disorder; R10.13 Epigastric pain; G47.9 Sleep disorder, unspecified; Z86.73 Personal history of transient ischemic attack (TIA), and cerebral infarction without residual deficits; R73.03 Prediabetes; R42 Dizziness and giddiness
CPT/HCPCS: 99214

== ENCOUNTER 2023-12-29 12:37 | Outpatient (AMB) | payer MEDICARE, MEDICAID, SELFPAY ==
[2023-12-29 12:43] VITALS: BP 118/74; PULSE 88; O2SAT 94; BMI 36.0
--- NOTE | 2023-12-29 12:43 | A.OFFPC_ITS ---
Vital Signs 12/29/23 12:43 Height 5 ft 2 in Weight 197 lb BMI 36.0 BP 118/74 Blood Pressure Location Rt brachial Position Sitting Pulse 88 Pulse Source Pulse Oximeter Pulse Oximetry (%) 94 Oxygen Delivery Method Room Air Intake Visit Reasons: 3M F/U Cardiovascular Specialist Required: No Accompanied by: Self / Same As Patient Allergies tetracycline Allergy (Unknown, Verified 12/29/23 12:43) rash Medication List - Last Reconciled 12/29/23 by Corwin Samson MD albuterol sulfate 90 mcg/actuation (ProAir HFA) 1 inh inhalation QID PRN 30 days amlodipine 5 mg PO DAILY aspirin 1 tab PO DAILY 90 days atorvastatin 80 mg PO DAILY 90 days [Bp Monitor As directed] clopidogrel 75 mg PO DAILY Combivent Respimat 20-100 mcg/actuation (ipratropium-albuterol) 1 puff inhalation QID NS commode (bedside commode) As directed duloxetine 30 mg PO QAM lisinopril 20 mg PO DAILY 90 days meclizine 25 mg PO DAILY PRN metoprolol tartrate 50 mg PO BID mirtazapine 30 mg PO BEDTIME omeprazole 20 mg PO DAILY walker wheeled walker with seat and brakes Tobacco use date assessed: 09/22/23 Fall risk assessment: No Falls in past year Last assessed Fall Risk: 12/29/23 Dental Screening Dental Screen Date: 09/22/23 HPI 3M F/U HPI Details Patient is 68-year-old female came in today for her regular follow-up visit. Complaining of difficulty hearing from her right ear On examination patient have cerumen impacted both sides Ears irrigated with good result patient tolerated procedure well. Patient is now using Combivent and rescue inhaler as needed Patient has a longstanding history of smoking she stopped 2 years ago She tells me that she has since high school half a pack per day Patient has noticed that she gets short of breath when she exerts herself She does not want to see a specialist at this time but she will let me know if she changes her mind Dizziness is better with meclizine, still get dizzy when she takes a shower She does have a shower stool Hypertension: Currently patient is taking lisinopril 20 mg, I am stopping amlodipine Impaired fasting sugar:? Diet-controlled She takes duloxetine 30 mg for depression.? Moods are stable.? Patient is also on clopidogrel along with atorvastatin 80 mg she has a history of CVA. She sleeps during the day and is up all night, mirtazapine is not helping I will be stopping that GERD is stable with omeprazole. BMI is elevated need to lose weight Follow-up 3 months.? BMI is elevated patient is having difficulty losing weight PFSH Medical History Lipid disorder Hypertension, essential Anxiety, generalized History of stroke Difficulty sleeping Dyspepsia Tobacco abuse Surgical History No pertinent past surgical history Family History Father No problems noted. Mother No problems noted. Brother No problems noted. Son No problems noted. Daughter No problems noted. Sister No problems noted. Sister No problems noted. Other Mental health disorder Substance use disorder Social History Housing: Apartment Alcohol intake: former Year quit: 2019 Patient Tobacco Use Status: Former Tobacco user Cigarette Packs Per Day: 0.5 e-Cigarette/Vaping Use: Never Used service: No Current occupational status: retired Cognitive needs: No Hearing needs: No Vision needs: No Questionnaire PHQ-9 Over the last 2 weeks, how often have you been bothered by any of the following problems? 1. Little interest or pleasure in doing things: several days 2. Feeling down, depressed, or hopeless: several days 3. Trouble falling or staying asleep, or sleeping too much: several days 4. Feeling tired or having little energy: several days 5. Poor appetite or overeating: not at all 6. Feeling bad about yourself - or that you are a failure or have let yourself or your family down: several days 7. Trouble concentrating on things, such as reading the newspaper or watching television: not at all 8. Moving or speaking so slowly that other people could have noticed. Or the opposite - being so fidgety or restless that you have been moving around a lot more than usual: several days 9. Thoughts that you would be better off or of hurting yourself in some way: not at all Total score: 6 Depression Screening Interpretation: Negative Depression Screening Done: Yes 15680 - PHQ-9 Billing: Yes Source: Developed by Drs. Joe Sanches, Breann Lee, Byron Garza and colleagues, with an educational jah from [employer]. Thrive Questionnaire Date Thrive assessed: 12/29/23 I am a: Patient What is your living situation today?: I have a steady place to live Within the past 12 months, did the food you bought not last and you didn't have the money to get more?: Never true Within the past 12 months, did you worry whether your food would run out before you got money to buy more?: Never true Do you have trouble paying for medicines?: No Do you have trouble getting transportation to medical appointments?: No Do you have trouble paying your heating and electricity bill?: No Do you have trouble taking care of your child, family member or friend?: No Do you have trouble with day-to-day activities such as bathing, preparing meals, shopping, managing finances, etc.?: Yes Are you currently unemployed and looking for a job?: No Are you interested in more education?: No Please select the resources that you would like help with: Housing/Half-Way Currently or been in a relationship where the following occur: No concerns reported THRIVE Score: 0 AUDIT C Alcohol Use Questionnaire (AUDIT-C) 1. How often do you have a drink containing alcohol?: Never Total Score: 0 Score Reviewed/Action Taken: Yes DAYANA-7 AMB Questionnaire DAYANA-7 Date DAYANA - 7 assessed: 12/29/23 Feeling nervous, anxious, or on edge: 1 = Several days Not being able to stop or control worryin = Several days Worrying too much about different things: 1 = Several days Trouble relaxin = Not at all Being so restless that it is hard to sit still: 1 = Several days Becoming easily annoyed or irritable: 0 = Not at all Feeling afraid as if something awful might happen: 0 = Not at all Total DAYANA-7 score (0-4 normal; 5-9 mild; 10-14 moderate; 15-21 severe): 4 Source: Developed by Drs. Joe Sanches, Byron Haddad and colleagues, with an educational jah from [employer]. DAYANA-7 Assessment Billing DAYANA-7 Assessment Tool: DAYANA-7 Assessment 32684 Review of Systems Const Denies chills and Denies fever(s) ENT Denies epistaxis and Denies nasal discharge Card Denies chest pain Resp Denies chest congestion, Denies cough and Denies hemoptysis GI Denies diarrhea and Denies nausea Skin/Breast Denies rash Neuro Reports no additional complaints Psych Reports no additional complaints Endo Reports no additional complaints Physical exam (Primary Care) Vital Signs: Last Vital Signs Pulse 88 12/29/23 12:43 BP 118/74 12/29/23 12:43 Pulse Ox 94 12/29/23 12:43 Oxygen Delivery Method Room Air 12/29/23 12:43 BMI result Body Mass Index 36.0 Tobacco/Smoking Status: Tobacco use Status Tobacco use date assessed 09/22/23 12/29/23 12:45 Patient Tobacco Use Status Former Tobacco user 12/29/23 12:45 e-Cigarette/Vaping Use Never Used 12/29/23 12:45 PHQ-9: PHQ-9 Score PHQ-9: Total score 6 12/29/23 13:17 Depression Screening Interpretation: Negative Thrive Assessment: Date of Thrive Assessment Date Thrive assessed 12/29/23 12/29/23 12:45 Currently or been in a relationship where the following occur: No concerns reported Const General: cooperative, comfortable and no acute distress Orientation/consciousness: patient oriented x3 HENMT Head: Yes normocephalic Eyes General: appearance normal, both eyes and all related structures Neck Neck: Yes supple Resp Effort & Inspection: normal respiratory effort, no cough and no stridor Cardio Rhythm: regular rhythm Heart sounds: S1 normal heart sound present and S2 normal heart sound present Skin General skin exam: turgor normal Neuro General: patient oriented x3, tone normal and moves all extremities Extrem Right lower extremity: no edema Left lower extremity: no edema Office Procedures Cerumen Removal From which ear canal was the cerumen removed: bilateral Removal: irrigation Notes: patient tolerated procedure well, no complications and ear canal clear [id number] Irrigation/Lavage Assessment and Plan Assessment & Plan (1) Hypertension, essential: Code(s): I10 - Essential (primary) hypertension (2) COPD (chronic obstructive pulmonary disease): Code(s): J44.9 - Chronic obstructive pulmonary disease, unspecified Qualifiers: COPD type: unspecified COPD Qualified Code(s): J44.9 - Chronic obstru ctive pulmonary disease, unspecified (3) Impacted cerumen, bilateral: Code(s): H61.23 - Impacted cerumen, bilateral (4) Lipid disorder: Code(s): E78.9 - Disorder of lipoprotein metabolism, unspecified (5) Anxiety, generalized: Code(s): F41.1 - Generalized anxiety disorder (6) Dyspepsia: Code(s): R10.13 - Epigastric pain (7) Difficulty sleeping: Code(s): G47.9 - Sleep disorder, unspecified (8) History of stroke: Code(s): Z86.73 - Personal history of transient ischemic attack (TIA), and cerebral infarction without residual deficits (9) Pre-diabetes: Code(s): R73.03 - Prediabetes (10) Vertigo: Code(s): R42 - Dizziness and giddiness Plan Patient is 68-year-old female came in today for her regular follow-up visit. Complaining of difficulty hearing from her right ear On examination patient have cerumen impacted both sides Ears irrigated with good result patient tolerated procedure well. Patient is now using Combivent and rescue inhaler as needed Patient has a longstanding history of smoking she stopped 2 years ago She tells me that she has since high school half a pack per day Patient has noticed that she gets short of breath when she exerts herself She does not want to see a specialist at this time but she will let me know if she changes her mind Dizziness is better with meclizine, still get dizzy when she takes a shower She does have a shower stool Hypertension: Currently patient is taking lisinopril 20 mg, I am stopping amlodipine Impaired fasting sugar:? Diet-controlled She takes duloxetine 30 mg for depression.? Moods are stable.? Patient is also on clopidogrel along with atorvastatin 80 mg she has a history of CVA. She sleeps during the day and is up all night, mirtazapine is not helping I will be stopping that GERD is stable with omeprazole. BMI is elevated need to lose weight Follow-up 3 months.? BMI is elevated patient is having difficulty losing weight 45 minute visit, including reviewing chart previous labs, [id number] with the patient, Ear irrigation, coordination of care Medications: Discontinued mirtazapine Discontinued Reason: Doctor's Order 30 mg PO BEDTIME 90 tabs 0RF G47.9 - Sleep disorder, unspecified amlodipine Discontinued Reason: Doctor's Order 5 mg PO DAILY 90 tabs 0RF Coding Level of Care Code Est Pt Level 5 (42335) Complex EM visit Add On G2211 Diagnoses Hypertension, essential I10 Chronic obstructive pulmonary disease, unspecified COPD type J44.9 COPD type: unspecified COPD Impacted cerumen, bilateral H61.23 Lipid disorder E78.9 Anxiety, generalized F41.1 Dyspepsia R10.13 Difficulty sleeping G47.9 History of stroke Z86.73 Pre-diabetes R73.03 Vertigo R42 CPT Codes Office Procedure - CPT: 97022-Cls Irrigation/Lavage ([id number]) Additional Codes DAYANA-7 Assessment Billing - DAYANA-7 Assessment Tool: DAYANA-7 Assessment 87430 ([id number])
== END 2023-12-29 14:20 | disposition home or self-care (01) ==
PROVIDERS: PCP Internal Medicine; Visit Provider Internal Medicine
DX: I10 Essential (primary) hypertension (principal); J44.9 Chronic obstructive pulmonary disease, unspecified; H61.23 Impacted cerumen, bilateral; E78.9 Disorder of lipoprotein metabolism, unspecified; F41.1 Generalized anxiety disorder; R10.13 Epigastric pain; G47.9 Sleep disorder, unspecified; Z86.73 Personal history of transient ischemic attack (TIA), and cerebral infarction without residual deficits; R73.03 Prediabetes; R42 Dizziness and giddiness
CPT/HCPCS: 69209; 99215; G2211

== ENCOUNTER 2024-06-21 13:08 | Outpatient (AMB) | payer MEDICARE, MEDICAID, SELFPAY ==
[2024-06-21 13:12] VITALS: BP 116/68; BMI 34.1
--- NOTE | 2024-06-21 13:12 | A.OFFPC_ITS ---
Vital Signs 06/21/24 13:12 Height 5 ft 2 in Weight 186 lb 6 oz BMI 34.1 BP 116/68 Blood Pressure Location Rt brachial Position Sitting Intake Visit Reasons: 3MTH Follow UP cora 05/19 Allergies tetracycline Allergy (Unknown, Verified 06/21/24 13:12) rash Medication List - Last Reconciled 06/21/24 by Corwin Samson MD albuterol sulfate 90 mcg/actuation (ProAir HFA) 1 inh inhalation QID PRN 30 days aspirin 1 tab PO DAILY 90 days atorvastatin 80 mg PO DAILY 90 days [Bp Monitor As directed] clopidogrel 75 mg PO DAILY Combivent Respimat 20-100 mcg/actuation (ipratropium-albuterol) 1 puff inhalation QID NS commode (bedside commode) As directed duloxetine 30 mg PO QAM lisinopril 20 mg PO DAILY 90 days meclizine 25 mg PO DAILY PRN metoprolol tartrate 50 mg PO BID omeprazole 20 mg PO DAILY walker wheeled walker with seat and brakes Tobacco use date assessed: 06/21/24 Fall risk assessment: No Falls in past year Last assessed Fall Risk: 06/21/24 Dental Screening Dental Screen Date: 06/21/24 Did you have a dental visit in the last 12 months?: No Did you have a dental problem in the last 6 months where you did not have access to dental care?: No Was dental information given to patient?: No HPI 3MTH Follow UP cora 05/19 HPI Details History of Present Illness - The patient is a 69-year-old female pr esenting with difficulty walking. - She has a significant history of cereb rovascular accident (stroke) that occurred in 2019 for which she was advised her ability to walk might be permanently affected. - Since the stroke, she reports increase d difficulty with ambulation, requiring assistance at times. - she has been declining to see neurolog ist after that - Parkinson's disease was discussed as a possible condition affecting her gait, contributing to shuffling and impaired mobility. - The patient mentions difficulty rememb ering certain details about her previous neurologic care, including the hospital where she was treated. We do not have any previous record of hospital admission and neurology consultation We will try to get it from [facility] I would like her to see a neurologist for evaluation, she has agreed to have 1 visit Problem List - Cerebrovascular Accident (Stroke) - 20 19 - Difficulty Ambulating - Possible Parkinson's Disease - Hypertension - Hyperlipidemia - Gastroesophageal Reflux Disease -lipid disorder - COPD - depression and anxiety -GERD chronic - risk for fall Medications - Atorvastatin: Indication - Hyperlipide jaki - Clopidogrel: Indication - Stroke preve ntion - Lisinopril 20 mg: Indication - Hyperte nsion - Duloxetine 30 mg: Depression and anxi ety - Omeprazole 20 mg BID: Indication - Gas troesophageal reflux disease - all other medications reviewed Diagnostic results - Labs: Previous CBC in September - GFR: 52 Review of Systems - Neurological: Reports difficulty walki ng, shuffling gait, occasional difficulty stopping when walking. - Respiratory: Reports difficulty breath ing when ambulating. - Musculoskeletal: Reports previous stro ke, use of walker for ambulation. 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 - Visit a neurologist for further evalua tion and management of potential Parkinson's disease. - Complete lab work as discussed during visit. - Schedule follow-up appointment in 3 mo [facility] for further evaluation and care. [facility] Medical History Lipid disorder Hypertension, essential Anxiety, generalized History of stroke Difficulty sleeping Dyspepsia Tobacco abuse Surgical History No pertinent past surgical history Family History Father No problems noted. Mother No problems noted. Brother No problems noted. Son No problems noted. Daughter No problems noted. Sister No problems noted. Sister No problems noted. Other Mental health disorder Substance use disorder Social History Housing: Apartment Alcohol intake: former Year quit: 2019 Patient Tobacco Use Status: Former Tobacco user Cigarette Packs Per Day: 0.5 e-Cigarette/Vaping Use: Never Used service: No Current occupational status: retired Cognitive needs: No Hearing needs: No Vision needs: No Questionnaire PHQ-9 Over the last 2 weeks, how often have you been bothered by any of the following problems? 1. Little interest or pleasure in doing things: several days 2. Feeling down, depressed, or hopeless: several days 3. Trouble falling or staying asleep, or sleeping too much: several days 4. Feeling tired or having little energy: several days 5. Poor appetite or overeating: not at all 6. Feeling bad about yourself - or that you are a failure or have let yourself or your family down: several days 7. Trouble concentrating on things, such as reading the newspaper or watching television: not at all 8. Moving or speaking so slowly that other people could have noticed. Or the opposite - being so fidgety or restless that you have been moving around a lot more than usual: several days 9. Thoughts that you would be better off or of hurting yourself in some way: not at all Total score: 6 Depression Screening Interpretation: Negative Depression Screening Done: Yes 45844 - PHQ-9 Billing: Yes Source: Developed by Drs. Joe Sanches, Breann Lee, Byron Garza and colleagues, with an educational jah from [employer]. Thrive Questionnaire Date Thrive assessed: 06/21/24 I am a: Patient What is your living situation today?: I choose not to answer this question Within the past 12 months, did the food you bought not last and you didn't have the money to get more?: I choose not to answer this question Within the past 12 months, did you worry whether your food would run out before you got money to buy more?: I choose not to answer this question Do you have trouble paying for medicines?: I choose not to answer this question Do you have trouble getting transportation to medical appointments?: I choose not to answer this question Do you have trouble paying your heating and electricity bill?: I choose not to answer this question Do you have trouble taking care of your child, family member or friend?: I choose not to answer this question Do you have trouble with day-to-day activities such as bathing, preparing meals, shopping, managing finances, etc.?: I choose not to answer this question Are you currently unemployed and looking for a job?: I choose not to answer this question Are you interested in more education?: I choose not to answer this question Please select the resources that you would like help with: None Currently or been in a relationship where the following occur: I choose not to answer THRIVE Score: 0 AUDIT C Alcohol Use Questionnaire (AUDIT-C) 1. How often do you have a drink containing alcohol?: Never 3. How often do you have six or more drinks on one occasion?: Never Total Score: 0 Score Reviewed/Action Taken: Yes DAYANA-7 AMB Questionnaire DAYANA-7 Date DAYANA - 7 assessed: 06/21/24 Feeling nervous, anxious, or on edge: 0 = Not at all Not being able to stop or control worryin = Several days Worrying too much about different things: 1 = Several days Trouble relaxin = Not at all Being so restless that it is hard to sit still: 0 = Not at all Becoming easily annoyed or irritable: 0 = Not at all Feeling afraid as if something awful might happen: 0 = Not at all Total DAYANA-7 score (0-4 normal; 5-9 mild; 10-14 moderate; 15-21 severe): 2 Source: Developed by Drs. Joe Sanches, Breann Lee, Byron Garza and colleagues, with an educational jah from [employer]. DAYANA-7 Assessment Billing DAYANA-7 Assessment Tool: DAYANA-7 Assessment 09403 Physical exam (Primary Care) Vital Signs: Last Vital Signs BP 116/68 06/21/24 13:12 BMI result Body Mass Index 34.1 Tobacco/Smoking Status: Tobacco use Status Tobacco use date assessed 06/21/24 06/21/24 13:13 Patient Tobacco Use Status Former Tobacco user 06/21/24 13:13 e-Cigarette/Vaping Use Never Used 06/21/24 13:13 PHQ-9: PHQ-9 Score PHQ-9: Total score 6 06/21/24 13:13 Depression Screening Interpretation: Negative Thrive Assessment: Date of Thrive Assessment Date Thrive assessed 06/21/24 06/21/24 13:13 Currently or been in a relationship where the following occur: I choose not to answer Coding Level of Care Code Est Pt Level 4 (01793) Complex EM visit Add On G2211 Diagnoses History of stroke Z86.73 Difficulty walking R26.2 Hypertension, essential I10 Anxiety, generalized F41.1 Dyspepsia R10.13 Lipid disorder E78.9 Pre-diabetes R73.03 Elevated serum creatinine R79.89 Chronic obstructive pulmonary disease, unspecified COPD type J44.9 COPD type: unspecified COPD Additional Codes DAYANA-7 Assessment Billing - DAYANA-7 Assessment Tool: DAYANA-7 Assessment 03421 ([id number]) PHQ-9 - 01720 - PHQ-9 Billing: Yes ([id number]) Assessment & Plan Assessment & Plan (1) History of stroke: Code(s): Z86.73 - Personal history of transient ischemic attack (TIA), and cerebral infarction without residual deficits Category: Medical (2) Difficulty walking: Code(s): R26.2 - Difficulty in walking, not elsewhere classified Category: Medical (3) Hypertension, essential: Code(s): I10 - Essential (primary) hypertension Category: Medical (4) Anxiety, generalized: Code(s): F41.1 - Generalized anxiety disorder Category: Medical (5) Dyspepsia: Code(s): R10.13 - Epigastric pain Category: Medical (6) Lipid disorder: Code(s): E78.9 - Disorder of lipoprotein metabolism, unspecified Category: Medical (7) Pre-diabetes: Code(s): R73.03 - Prediabetes Category: Medical (8) Elevated serum creatinine: Code(s): R79.89 - Other specified abnormal findings of blood chemistry Category: Medical (9) COPD (chronic obstructive pulmonary disease): Code(s): J44.9 - Chronic obstructive pulmonary disease, unspecified Category: Medical Qualifiers: COPD type: unspecified COPD Qualified Code(s): J44.9 - Chronic obstructive pulmonary disease, unspecified Plan History of Present Illness - The patient is a 69-year-old female presenting with difficulty walking. - She has a significant history of cerebrovascular accident (stroke) that occurred in 2019 for which she was advised her ability to walk might be permanently affected. - Since the stroke, she reports increased difficulty with ambulation, requiring assistance at times. - she has been declining to see neurologist after that - Parkinson's disease was discussed as a possible condition affecting her gait, contributing to shuffling and impaired mobility. - The patient mentions difficulty remembering certain details about her previous neurologic care, including the hospital where she was treated. We do not have any previous record of hospital admission and neurology consultation We will try to get it from [facility] I would like her to see a neurologist for evaluation, she has agreed to have 1 visit Problem List - Cerebrovascular Accident (Stroke) - 2019 - Difficulty Ambulating - Possible Parkinson's Disease - Hypertension - Hyperlipidemia - Gastroesophageal Reflux Disease -lipid disorder - COPD - depression and anxiety -GERD chronic - risk for fall Medications - Atorvastatin: Indication - Hyperlipidemia - Clopidogrel: Indication - Stroke prevention - Lisinopril 20 mg: Indication - Hypertension - Duloxetine 30 mg: Depression and anxiety - Omeprazole 20 mg BID: Indication - Gastroesophageal reflux disease - all other medications reviewed Diagnostic results - Labs: Previous CBC in September - GFR: 52 Review of Systems - Neurological: Reports difficulty walking, shuffling gait, occasional difficulty stopping when walking. - Respiratory: Reports difficulty breathing when ambulating. - Musculoskeletal: Reports previous stroke, use of walker for ambulation. General: No fever no chills neurological: No headaches no dizziness ear nose throat: No sore throat no hearing difficulty no ear pain cardiovascular: No syncope, no chest pain, no palpitations gastrointestinal: No nausea vomiting or diarrhea endocrine: No polyuria polydipsia no heat intolerance genitourinary: No dysuria skin: No new complaints Physical Exam general: No acute distress HEENT: No acute findings neck: Supple respiratory system: Breathing problems when getting up to walk cardiovascular: S1-S2 gastrointestinal: No pain extremities: Difficulty walking and sometimes stopping CLEANING STAFF SUPERVISOR: Alert awake oriented x3 motor sensory intact, shuffling gait present, slightly slurred speech which is baseline for the patient skin: Normal turgor Patient Instructions - Continue all current medications as prescribed. - Visit a neurologist for further evaluation and management of potential Parkinson's disease. - Complete lab work as discussed during visit. - Schedule follow-up appointment in 3 months for further evaluation and care. Orders: Orders Complete Blood Count Auto Diff Today E78.9 - Disorder of lipoprotein metabolism, unspecified, F41.1 - Generalized anxiety disorder, I10 - Essential (primary) hypertension, J44.9 - Chronic obstructive pulmonary disease, unspecified, R10.13 - Epigastric pain, R26.2 - Difficulty in walking, not elsewhere classified, R73.03 - Prediabetes, R79.89 - Other specified abnormal findings of blood chemistry TSH reflex Free T4 Today E78.9 - Disorder of lipoprotein metabolism, unspecified, F41.1 - Generalized anxiety disorder, I10 - Essential (primary) hypertension, J44.9 - Chronic obstructive pulmonary disease, unspecified, R10.13 - Epigastric pain, R26.2 - Difficulty in walking, not elsewhere classified, R73.03 - Prediabetes, R79.89 - Other specified abnormal findings of blood chemistry Vitamin B12 Today E78.9 - Disorder of lipoprotein metabolism, unspecified, F41.1 - Generalized anxiety disorder, I10 - Essential (primary) hypertension, J44.9 - Chronic obstructive pulmonary disease, unspecified, R10.13 - Epigastric pain, R26.2 - Difficulty in walking, not elsewhere classified, R73.03 - Prediabetes, R79.89 - Other specified abnormal findings of blood chemistry Hemoglobin A1c Today E78.9 - Disorder of lipoprotein metabolism, unspecified, F41.1 - Generalized anxiety disorder, I10 - Essential (primary) hypertension, J44.9 - Chronic obstructive pulmonary disease, unspecified, R10.13 - Epigastric pain, R26.2 - Difficulty in walking, not elsewhere classified, R73.03 - Prediabetes, R79.89 - Other specified abnormal findings of blood chemistry Comprehensive Met. Panel Today E78.9 - Disorder of lipoprotein metabolism, unspecified, F41.1 - Generalized anxiety disorder, I10 - Essential (primary) hypertension, J44.9 - Chronic obstructive pulmonary disease, unspecified, R10.13 - Epigastric pain, R26.2 - Difficulty in walking, not elsewhere classified, R73.03 - Prediabetes, R79.89 - Other specified abnormal findings of blood chemistry LDL Cholesterol Direct Today E78.9 - Disorder of lipoprotein metabolism, unspecified, F41.1 - Generalized anxiety disorder, I10 - Essential (primary) hypertension, J44.9 - Chronic obstructive pulmonary disease, unspecified, R10.13 - Epigastric pain, R26.2 - Difficulty in walking, not elsewhere classified, R73.03 - Prediabetes, R79.89 - Other specified abnormal findings of blood chemistry Vitamin D 25-OH (D2 and D3) Today E78.9 - Disorder of lipoprotein metabolism, unspecified, F41.1 - Generalized anxiety disorder, I10 - Essential (primary) hypertension, J44.9 - Chronic obstructive pulmonary disease, unspecified, R10.13 - Epigastric pain, R26.2 - Difficulty in walking, not elsewhere classified, R73.03 - Prediabetes, R79.89 - Other specified abnormal findings of blood chemi stry Referrals Neurology Referral R26.2 - Difficulty in walking, not elsewhere classified, Z86.73 - Personal history of transient ischemic attack (TIA), and cerebral infarction without residual deficits
== END 2024-06-21 14:11 | disposition home or self-care (01) ==
PROVIDERS: PCP Internal Medicine; Visit Provider Internal Medicine
DX: I10 Essential (primary) hypertension (principal); R26.2 Difficulty in walking, not elsewhere classified; R73.03 Prediabetes; J44.9 Chronic obstructive pulmonary disease, unspecified; Z86.73 Personal history of transient ischemic attack (TIA), and cerebral infarction without residual deficits; F41.1 Generalized anxiety disorder; R10.13 Epigastric pain; E78.9 Disorder of lipoprotein metabolism, unspecified

== ENCOUNTER 2024-06-21 13:08 | Outpatient (REF) | payer MEDICARE, MEDICAID, SELFPAY ==
[2024-06-21 16:06] LABS: MANUAL DIFF FLAG NO
[2024-06-21 16:14] LABS: Basophils Absolute Auto 0.1 X10*3/uL (0.0-0.2); Basophils Percent Auto 0.6 % (0-2); Eosinophils Absolute Auto 0.1 X10*3/uL (0.0-0.4); Eosinophils Percent Auto 0.7 % (0-4); Hematocrit 50.9 % (37.0-47.0); Hemoglobin 16.8 g/dl (12.0-16.0); Imm Gran Abs Auto 0.14 X10*3/uL (0.00-0.03); Lymphocytes Absolute Auto 2.1 X10*3/uL (1.2-4.9); Lymphocytes Percent Auto 14.6 % (20-40); Mean Corpuscular Hemoglobin 32.3 pg (27.0-33.0); Mean Corpuscular Volume 97.9 fL (80.0-98.0); Monocytes Absolute Auto 0.7 X10*3/uL (0.1-1.2); Monocytes Percent Auto 5.1 % (2-11); Neutrophils Absolute Auto 11.1 x10*3/uL (2.0-8.3); Platelet Count 322 X10*3/uL (160-400); Red Cell Distribution Width 14.5 % (11.0-16.0); White Blood Count 14.3 X10*3/uL (4.8-10.8)
[2024-06-21 16:27] LABS: Estimated Average Glucose 117 mg/dL; Hemoglobin A1C 165.7795 umol/L; Hemoglobin A1c % 5.7 % (<6.0)
[2024-06-21 16:55] LABS: Vitamin B12 246 pg/mL (200-900)
[2024-06-21 17:00] LABS: Alanine Aminotransferase 31 U/L (0-31); Alkaline Phosphatase 81 U/L (39-117); Anion Gap 20 (12-20); Aspartate Amino Transferase 35 U/L (5-31); Bilirubin Total 0.5 mg/dL (0.0-1.0); Blood Urea Nitrogen 21 mg/dL (9-16); Calcium 9.3 mg/dL (8.4-10.2); Carbon Dioxide 18 mmol/L (22-29); Chloride 111 mmol/L (96-108); Estimated Glomerular Filt Rate 46; Glucose Random 155 mg/dL (60-115); Potassium 4.4 mmol/L (3.3-5.1); Sodium 145 mmol/L (135-145); Total Protein 7.2 g/dL (6.5-8.0)
[2024-06-21 17:16] LABS: TSH reflex Free T4 3.56 uIU/mL (0.32-4.0)
[2024-06-22 21:04] LABS: LDL Cholesterol Direct 86 mg/dL (<100)
[2024-06-25 14:48] LABS: Vitamin D 25-OH, D2 <4 ng/mL; Vitamin D 25-OH, D3 17 ng/mL; Vitamin D 25-OH, Total 17 ng/mL (30-100)
== END 2024-06-21 13:09 | disposition home or self-care (01) ==
LOC: HO.HMGCLDS 13:08
PROVIDERS: PCP Internal Medicine; Visit Provider Internal Medicine
DX: R26.2 Difficulty in walking, not elsewhere classified (principal); I10 Essential (primary) hypertension; F41.1 Generalized anxiety disorder; R10.13 Epigastric pain; E78.9 Disorder of lipoprotein metabolism, unspecified; R73.03 Prediabetes; R79.89 Other specified abnormal findings of blood chemistry; J44.9 Chronic obstructive pulmonary disease, unspecified; Z86.73 Personal history of transient ischemic attack (TIA), and cerebral infarction without residual deficits; Z79.899 Other long term (current) drug therapy
CPT/HCPCS: 36415; 80053; 82306; 82607; 83036; 83721; 84443; 85025; 96127; 99212

== ENCOUNTER 2024-07-02 12:43 | Inpatient (IN) | payer MEDICARE, MEDICAID, SELFPAY ==
--- NOTE | 2024-07-02 | ECG_ITS ---
Test Reason : TACHYCARDIA Blood Pressure : */* mmHG Vent. Rate : 136 BPM Atrial Rate : 136 BPM P-R Int : 122 ms QRS Dur : 68 ms QT Int : 292 ms P-R-T Axes : 65 18 74 degrees QTcB Int : 439 ms Sinus tachycardia Nonspecific ST and T wave abnormality Abnormal ECG When compared with ECG of 02-Jul-2024 15:17, T wave inversion no longer evident in Anterior leads Referred By: Bere Lee Electronically Signed By: LUCAS DEL CID MD
--- NOTE | ~2024-07-02 | CT_ITS ---
CLINICAL HISTORY: fall CT cervical spine without contrast Comparison: None Findings: There is straightening of the normal cervical lordosis. There is multilevel disc space narrowing with endplate sclerosis, most pronounced at C4-5 and C5-6. The facet joints are normally imbricating. No fracture or acute malalignment. Visualized lung apices demonstrate mild chronic changes. Impression: There is no evidence of acute fracture or acute malalignment. Degenerative changes as detailed. This document has been electronically signed by: Vijay Kolb MD on 07/02/2024 14:34:16
--- NOTE | ~2024-07-02 | XR_ITS ---
CLINICAL HISTORY: SOB 2 view chest x-ray. Comparison: None Findings: The lungs are adequately expanded. No focal consolidation. No effusion or pneumothorax. Cardiac and mediastinal contours are within normal limits. No acute osseous abnormality Impression: No acute process. This document has been electronically signed by: Vijay Kolb MD on 07/02/2024 16:41:40
--- NOTE | ~2024-07-02 | CT_ITS ---
CLINICAL HISTORY: fall, confusion CT head without contrast Comparison: CT/SR - BRAIN WO IV CONTRAST [id number] - 08/21/19 08:10 EDT Findings: There is an ovoid low-density/cystic cavity within the left frontal lobe. There is low-density surrounding this, increased from prior. No hydrocephalus or midline shift. No acute intracranial hemorrhage or acute territorial infarct. 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 No acute calvarial fracture. Impression: No definite acute intracranial process. There is increasing low-density surrounding a region of ovoid encephalomalacia within the left frontotemporal region, nonspecific. This may reflect progressive gliosis. Correlation with any pathology in this region. Presumably the underlying appearance is related to encephalomalacia from infarct given the left temporal aneurysm coils. Again, clinical correlation. This document has been electronically signed by: Vijay Kolb MD on 07/02/2024 14:39:39
[2024-07-02 12:56] VITALS: BP 144/92; PULSE 128; O2SAT 96; BMI 32.0
[2024-07-02 13:10] VITALS: BP 146/77; PULSE 110; RESP 18; TEMP 36.7
--- NOTE | 2024-07-02 13:24 | ECG_ITS ---
Test Reason : fall, uncertain cause Blood Pressure : */* mmHG Vent. Rate : 115 BPM Atrial Rate : 115 BPM P-R Int : 122 ms QRS Dur : 74 ms QT Int : 336 ms P-R-T Axes : 89 17 -10 degrees QTcB Int : 464 ms Sinus tachycardia with occasional Premature ventricular complexes ST & T wave abnormality, consider inferior ischemia ST & T wave abnormality, consider anterolateral ischemia Abnormal ECG No previous ECGs available Referred By: Tangela Saravia Electronically Signed By:
--- NOTE | 2024-07-02 13:35 | ED_ITS ---
HPI - Fall General Chief Complaint: Fall Stated Complaint: FALL LAST NIGHT Time Seen by Provider: 07/02/24 12:55 Source: patient, family and EMS Mode of arrival: EMS Limitations: altered mental status History of Present Illness ED Provider: Tangela Saravia APRN HPI Narrative: 69y female with history of CVA with speech deficit (per daughter), COPD, HTN, HLD, GERD here with complaints of fall. her daughter to the bedside she had tried calling her mom this morning but her phone was going to [facility]. She last saw her 2 days ago. Went to her moms home and found her on the ground. Patient believes that she had a fall yesterday but is unsure why she fell. She currently has no complaints. Per daughter she does have some episodes of confusion that occur but she does appear more confused than her baseline. Related Data Previous Rx's ?Medication ?Instructions ?Recorded Bp Monitor #1 ea 01/21/21 albuterol sulfate 90 mcg/actuation 1 inh inhalation QID PRN shortness 08/28/22 aerosol inhaler (ProAir HFA) of breath or wheezing 30 days #18 grams commode (bedside commode) #1 ea 08/31/22 walker #1 ea 08/31/22 Combivent Respimat 20 mcg-100 1 puff inhalation QID #4 grams 11/17/23 mcg/actuation solution for inhalation (ipratropium-albuterol) aspirin 81 mg chewable tablet 1 tab PO DAILY 90 days #90 tabs 12/20/23 clopidogrel 75 mg tablet 75 mg PO DAILY #90 tabs 12/20/23 meclizine 25 mg tablet 25 mg PO DAILY PRN 1 hour before 12/24/23 shower #90 tabs duloxetine 30 mg capsule,delayed 30 mg PO QAM #90 caps 04/13/24 release atorvastatin 80 mg tablet 80 mg PO DAILY 90 days #90 tabs 05/02/24 lisinopril 20 mg tablet 20 mg PO DAILY 90 days #90 tabs 06/01/24 metoprolol tartrate 50 mg tablet 50 mg PO BID #180 tabs 06/01/24 omeprazole 20 mg capsule,delayed 20 mg PO DAILY #90 caps 06/01/24 release Allergies Allergy/AdvReac Type Severity Reaction Status Date / Time tetracycline Allergy Unknown rash Verified 07/02/24 12:59 Review of Systems 2 Review of Systems: Yes all other systems are reviewed and are negative Constitutional: Constitutional: Reports no additional constitutional complaints, Denies body ache(s), Denies chills, Denies fever(s), Denies headache(s) and Denies weakness Eyes: Eyes: Reports no additional eye complaints and Denies change in vision ENT: Reports system reviewed and no additional complaints, except as documented, Denies dizziness, Denies headache(s), Denies nasal congestion, Denies nasal discharge and Denies neck pain Cardiovascular: Cardiovascular: Reports no additional cardiovascular complaints, Denies chest pain, Denies leg edema and Denies dyspnea Respiratory: Respiratory: Reports no additional respiratory complaints, Denies cough and Denies dyspnea Gastrointestinal: Gastrointestinal: Reports no additional gastrointestinal complaints, Denies abdominal pain, Denies diarrhea, Denies nausea and Denies vomiting Genitourinary: Genitourinary: Reports no additional female genitourinary complaints and Denies urinary incontinence Musculoskeletal: Musculoskeletal: Reports no additional musculoskeletal complaints, Denies back pain, Denies arthralgias, Denies joint swelling, Denies neck pain, Denies numbness and Denies tingling Integumentary/Breasts: Skin/Breast: Reports system reviewed and no additional complaints, except as docu and Denies rash Neurologic: Reports system reviewed and no additional complaints, except as documented, Denies Abnormal speech present, Denies dizziness, Denies headache(s), Denies numbness, Denies tingling and Denies weakness PMFSH Past Medical History Attestation statement: The following information was validated with the patient. Source: old records reviewed and nursing notes reviewed Medical History Lipid disorder Hypertension, essential Anxiety, generalized History of stroke Difficulty sleeping Dyspepsia Tobacco abuse Surgical History No pertinent past surgical history Family History Family History Father No problems noted. Mother No problems noted. Brother No problems noted. Son No problems noted. Daughter No problems noted. Sister No problems noted. Sister No problems noted. Other Mental health disorder Substance use disorder Social History Social History Housing: Apartment Alcohol intake: former Year quit: 2019 Patient Tobacco Use Status: Former Tobacco user Cigarette Packs Per Day: 0.5 Smoked in Last 30 Days: No e-Cigarette/Vaping Use: Never Used Use of substances other than those prescribed or required for medical reasons: No Advance Directives: No Advance Directives Information Provided: Yes Do you have a plan to hurt others: No Plan service: No Current occupational status: retired Cognitive needs: No Hearing needs: No Vision needs: No Physical Exam 2 Vital Signs: Vital Signs: Last Vital Signs Temp 98.1 F 07/02/24 13:10 Pulse 87 07/02/24 14:13 Resp 18 07/02/24 14:13 BP 146/77 H 07/02/24 13:10 BMI result Body Mass Index 32.0 Const: General: cooperative, healthy appearing, comfortable and no acute distress Orientation/consciousness: oriented to person and oriented to place Limitations: no limitations HEENT: Other: no hemotympanum Head: Yes normal to inspection, No Castillo's sign and No raccoon eyes E ars: hearing grossly normal bilaterally and TM's normal bilaterally General nose exam: Normal external nose present Face and sinus: Yes normal facial exam Mouth: Normal oral and palatal mucosa present Throat: Yes posterior oropharynx normal Eyes: General: appearance normal, both eyes and all related structures P upils: Equal, round and reactive pupils present Neck: Other: no cervical midline tenderness, step-offs deformities Neck: Yes normal visual inspection Chest: Chest palpation & inspection: normal inspection of the chest Resp: Effort & Inspection: normal respiratory effort Auscultation: wheezes Cardio: Rate: regular rate Rhythm: regular rhythm Peripheral pulses: P eripheral pulses 2+ throughout GI: Inspection: Yes normal to inspection Palpation (GI): Soft to palpation and nontender Auscultation: normal bowel sounds Back/Spine/Pelvis: Thoracic/Lumbar Spine: thoracic and lumbar spine normal to inspection Skin: General skin exam: no rashes or lesions noted Neuro: General: oriented to person, oriented to place, moves all extremities, no focal motor deficits and normal sensation to monofilament Cranial nerves: Yes CN's II-XII intact bilaterally, Yes Equal, round and reactive pupils present, Yes Bilaterally intact EOM present, Yes Nystagmus not present, Yes Normal facial strength present and Yes Midline tongue present Cognition (Neuro): normal cognition Speech: No Abnormal speech present Gait exam (Neuro): Normal gait present Motor exam (neuro): 5/5 motor strength present throughout Sensory Exam: Normal double simultaneous stimulation for sensation Extrem: General: Yes normal to inspection, Yes no pedal edema and Yes no calf tenderness Course Course Course Narrative: 1433- UA is consistent with UTI. At this time infection is suspected. Antibiotics ordered Reevaluation(s) Reevaluation #1: 1530- labs show elevated CPK. Fluids are infusing. Normal renal function. Patient has a leukocytosis with an elevated lactic acid in the setting of a UTI. She is receiving antibiotics and IV fluids for this. Blood pressure is stable. She is nontoxic appearing. Patient's EKG shows ST depressions in leads V4, V5 and V6 with a negative troponin. She has no complaints of chest pain or shortness of breath. Will trend troponin. no previous EKG for comparison. chest x-ray is pending. CT cervical spine is negative. CT head shows No definite acute intracranial process. There is increasing low-density surrounding a region of ovoid encephalomalacia within the left frontotemporal region, nonspecific. This may reflect progressive gliosis. Correlation with any pathology in this region. Presumably the underlying appearance is related to encephalomalacia from infarct given the left temporal aneurysm coils. Again, clinical correlation. likely nonspecific. Patient has no focal neurological findings. Can follow-up outpatient as needed Call out to hospitalist to discussion admission. Medications Administered Discontinued Medications Generic Name Dose Route Start Last Admin Trade Name Freq PRN Reason Stop Dose Admin Albuterol/Ipratropium 3 ml 07/02/24 14:09 07/02/24 14:11 Albuterol/Iprat 2.5/0.5mg 3 Ml Ampul.Neb INHALE 07/02/24 14:10 3 ml ONCE ONE Administration Ceftriaxone Sodium 2 gm 07/02/24 14:33 07/02/24 15:22 Ceftriaxone Sodium 2 Gm Vial IVPUSH 07/02/24 14:34 2 gm ONCE ONE Administration Sodium Chloride 1,000 mls @ 999 mls/hr 07/02/24 13:24 07/02/24 14:23 Ns IV 07/02/24 14:24 999 mls/hr .Q1H1M STA Administration Morphine Sulfate 2 mg 07/02/24 14:52 07/02/24 15:22 Morphine Sulfate 2 Mg/Ml Cartridge IVPUSH 07/02/24 14:53 2 mg ONCE ONE Administration Protocol Medical Decision Making Medical Decision Making [facility] [place] Narrative: 69 year old female here with fall from uncertain cause with prolonged down time. On arrival patient is Alert, oriented x2. This does seem more confused from patient baseline per family. Mild wheezing Various abrasions, tacky MM Will obtain labs, EKG, CXR, UA, Ct head/cervical spine Will initiate IVF Differential Diagnosis Differential Diagnoses: The differential diagnosis associated with the presentation includes Fall uncertain cause-syncope, ICH, ACS, arrthymia, anemia, electrolyte abnormality, infection Also r/o rhabdo, trauma Admission/Observation Consideration of admission/observation: Escalation of care including admission/observation considered UTI with elevated white blood cell count and lactic acid requiring IV antibiotics, elevated CPK requiring IV fluids Consult Healthcare Provider Management of the patient was discussed with: Hospitalist Noelle-accepted admission Lab Data [facility] [place] Lab Attestation statement: I reviewed the patient's lab results. 07/02/24 13:57 07/02/24 14:20 Labs: Lab Results 07/02/24 07/02/24 07/02/24 Range/Units 13:56 13:57 14:20 WBC 13.8 H (4.8-10.8) X10*3/uL RBC 4.69 (4.20-5.50) X10*6/uL Hgb 15.3 (12.0-16.0) g/dl Hct 44.3 (37.0-47.0) % MCV 94.5 (80.0-98.0) fL MCH 32.6 (27.0-33.0) pg MCHC 34.5 (31.0-35.0) g/dl RDW 14.5 (11.0-16.0) % Plt Count 227 D (160-400) X10*3/uL MPV 9.7 (9.4-12.3) fL Immature Gran % (Auto) 0.4 (0.0-0.4) % Neut % (Auto) 82.0 H (45-73) % Lymph % (Auto) 8.8 L (20-40) % [place] % (Auto) 8.4 (2-11) % Eos % (Auto) 0.1 (0-4) % Baso % (Auto) 0.3 (0-2) % Lymph # (Auto) 1.2 (1.2-4.9) X10*3/uL [place] # (Auto) 1.2 (0.1-1.2) X10*3/uL Eos # (Auto) 0.0 (0.0-0.4) X10*3/uL Baso # (Auto) 0.0 (0.0-0.2) X10*3/uL Abs Immat Gran (auto) 0.06 H (0.00-0.03) X10*3/uL Absolute Neuts (auto) 11.4 H (2.0-8.3) x10*3/uL Absolute Nucleated RBC 0.000 (0.0-0.012) X10*3/uL Nucleated RBC % (auto) 0.0 (0.0-0.2) /100WBC PT 12.7 H (10.9-12.4) SEC INR 1.1 (0.9-1.1) Sodium 144 (135-145) mmol/L Potassium 3.8 (3.3-5.1) mmol/L Chloride 104 (96-108) mmol/L Carbon Dioxide 24 (22-29) mmol/L Anion Gap 20 (12-20) BUN 19 H (9-16) mg/dL Creatinine 0.79 (0.5-1.4) mg/dL Estim Creat Clear Calc 64.6 Estimated GFR > 60 Random Glucose 112 (60-115) mg/dL Lactic Acid 2.4 H* (0.5-2.0) mmol/L Calcium 8.7 D (8.4-10.2) mg/dL Magnesium 1.5 L (1.6-2.6) mg/dL Total Bilirubin 1.0 (0.0-1.0) mg/dL Direct Bilirubin 0.4 (0.0-0.5) mg/dL AST 127 H (5-31) U/L ALT 41 H (0-31) U/L Alkaline Phosphatase 70 (39-117) U/L Total Creatine Kinase 4464 H (26-140) U/L Troponin I High Sens 15.2 (<3.5-17.0) ng/L Total Protein 7.0 (6.5-8.0) g/dL Albumin 3.7 (3.5-5.0) g/dL Urine Color Dark Yellow Urine Appearance Turbid Urine pH 5.5 (5.0-9.0) Ur Specific [place] >= 1.030 H (1.005-1.025) Urine Protein 30 (1+) H (Neg-Trace) mg/dL Urine Glucose (UA) Negative (Negative) mg/dL Urine Ketones 40 (Negative) mg/dL Urine Blood Moderate (2+) H (Negative) Urine Nitrite Positive H (Negative) Ur Leukocyte Esterase Moderate (2+) H (Negative) Urine RBC 11-20 H (0-2) /HPF Urine WBC >50 H (0-5) /HPF Ur Squamous Epith Cells 6-10 (0-2) /HPF Urine Bacteria 3+ (None Seen) Epithelial Casts Present Hyaline Casts >20 (0-2) /LPF Granular Casts Present Influenza Type A (PCR) NEGATIVE (Negative) Influenza Type B (PCR) NEGATIVE (Negative) RSV RNA Qual (PCR) NEGATIVE (Negative) SARS-CoV-2 RNA (RT-PCR) NEGATIVE (Negative) Independent Interpretation I performed an independent interpretation of an: EKG, Plain X-Ray and CT Scan Interpretation: I independently viewed the CT scan/CXR agree with the radiology report I independently viewed the EKG which shows sinus tachycardia with a rate of 104, normal AL, normal QRS, ST depressions leads V4, V5 and V6 Radiology Impression Discussion of test interpretation with radiology: I have reviewed the radiologist's reading. Radiologist Impression: [place] [id number] CT Scan Report Signed Patient: Albina Murillo MR#: [id number] : 1955 Acct:[id number] Age/Sex: 69 / F ADM Date: 07/02/24 Loc: .ED Attending Dr: Ordering Physician: Tangela Saravia NP Date of Service: 07/02/24 Procedure(s): CT head/brain wo IV con Accession Number(s): [id number] cc: Corwin Samson MD; Tangela Saravia NP~ Report Number: [id number]: Total DLP = 631.00 mGy-cm CLINICAL HISTORY: fall, confusion CT head without contrast Comparison: CT/SR - BRAIN WO IV CONTRAST [id number] - 08/21/19 08:10 EDT Findings: There is an ovoid low-density/cystic cavity within the left frontal lobe. There is low-density surrounding this, increased from prior. No hydrocephalus or midline shift. No acute intracranial hemorrhage or acute territorial infarct. 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 No acute calvarial fracture. Impression: No definite acute intracranial process. There is increasing low-density surrounding a region of ovoid encephalomalacia within the left frontotemporal region, nonspecific. This may reflect progressive gliosis. Correlation with any pathology in this region. Presumably the underlying appearance is related to encephalomalacia from infarct given the left temporal aneurysm coils. Again, clinical correlation. This document has been electronically signed by: Vijay Kolb MD on 07/02/2024 14:39:[address] [place] [id number] [address] Scan Report Signed Patient: Albina Murillo MR#: [id number] : 1955 Acct:[id number] Age/Sex: 69 / F ADM Date: 07/02/24 Loc: HO.ED Attending Dr: Ordering Physician: Tangela Saravia NP Date of Service: 07/02/24 Procedure(s): CT cervical spine wo IV con Accession Number(s): [id number] cc: Corwin Samson MD; Tangela Saravia NP~ Report Number: [id number]: Total DLP = 431.00 mGy-cm CLINICAL HISTORY: fall CT cervical spine without contrast Comparison: None Findings: There is straightening of the normal cervical lordosis. There is multilevel disc space narrowing with endplate sclerosis, most pronounced at C4-5 and C5-6. The facet joints are normally imbricating. No fracture or acute malalignment. Visualized lung apices demonstrate mild chronic changes. Impression: There is no evidence of acute fracture or acute malalignment. Degenerative changes as detailed. This document has been electronically signed by: Vijay Kolb MD on 07/02/2024 14:34:16 Independent Historian Clinical information obtained from an independent historian. History obtained from or confirmed by: EMS and Other (daughter ) Discharge Plan Discharge Clinical Impression: Urinary tract infection, Leukocytosis, Elevated lactic acid level, Rhabdomyolysis Patient Disposition: Admitted As Inpatient
[2024-07-02 14:10] LABS: MANUAL DIFF FLAG NO
[2024-07-02] MEDS: Albuterol/Iprat 2.5/0.5MG 3 ML AMPUL.NEB INHALE (14:11)
[2024-07-02 14:13] VITALS: PULSE 87; RESP 18; O2SAT 94
[2024-07-02 14:14] LABS: Basophils Percent Auto 0.3 % (0-2); Eosinophils Percent Auto 0.1 % (0-4); Hematocrit 44.3 % (37.0-47.0); Hemoglobin 15.3 g/dl (12.0-16.0); Imm Gran Abs Auto 0.06 X10*3/uL (0.00-0.03); Imm Gran Pct Auto 0.4 % (0.0-0.4); Lymphocytes Absolute Auto 1.2 X10*3/uL (1.2-4.9); Lymphocytes Percent Auto 8.8 % (20-40); Mean Corpuscular HGB Conc 34.5 g/dl (31.0-35.0); Mean Corpuscular Hemoglobin 32.6 pg (27.0-33.0); Mean Corpuscular Volume 94.5 fL (80.0-98.0); Mean Platelet Volume 9.7 fL (9.4-12.3); Monocytes Absolute Auto 1.2 X10*3/uL (0.1-1.2); Monocytes Percent Auto 8.4 % (2-11); Neutrophils Absolute Auto 11.4 x10*3/uL (2.0-8.3); Platelet Count 227 X10*3/uL (160-400); Red Blood Count 4.69 X10*6/uL (4.20-5.50); Red Cell Distribution Width 14.5 % (11.0-16.0); White Blood Count 13.8 X10*3/uL (4.8-10.8)
[2024-07-02 14:14] LABS: Appearance Urine Turbid; Color Urine Dark Yellow; Glucose Urine UA Negative (Negative); Leukocyte Esterase Urine Moderate (2+) (Negative); Nitrite Urine Positive (Negative); PH 5.5 (5.0-9.0); Specific Gravity - Urine >= 1.030 (1.005-1.025); UMIC TRIGGER UACC YES; Urine Blood Moderate (2+) (Negative); Urine Ketones 40 mg/dL (Negative); Urine Protein 30 (1+) mg/dL (Neg-Trace)
[2024-07-02 14:18] LABS: INTERNATIONAL NORM RATIO 1.1 (0.9-1.1); Prothrombin Time 12.7 SEC (10.9-12.4)
[2024-07-02] MEDS: 0.9 % Sodium Chloride 1,000 ML 999 ML IV (14:23)
[2024-07-02 14:25] LABS: Bacteria Urine 3+ (None Seen); Epith (RTE) Cast Present; Granular Casts Urine Present; Hyaline Casts Urine >20 /LPF (0-2); UACC Culture Trigger YES; WBC Urine >50 /HPF (0-5)
[2024-07-02 14:48] LABS: Lactic Acid 2.4 mmol/L (0.5-2.0)
[2024-07-02 14:55] LABS: Alanine Aminotransferase 41 U/L (0-31); Albumin Level 3.7 g/dL (3.5-5.0); Alkaline Phosphatase 70 U/L (39-117); Anion Gap 20 (12-20); Aspartate Amino Transferase 127 U/L (5-31); Bilirubin Direct 0.4 mg/dL (0.0-0.5); Blood Urea Nitrogen 19 mg/dL (9-16); Calcium 8.7 mg/dL (8.4-10.2); Carbon Dioxide 24 mmol/L (22-29); Chloride 104 mmol/L (96-108); Creatinine Clr Calc Pharmacy 64.6; Estimated Glomerular Filt Rate > 60; Glucose Random 112 mg/dL (60-115); Magnesium 1.5 mg/dL (1.6-2.6); Potassium 3.8 mmol/L (3.3-5.1); Sodium 144 mmol/L (135-145)
[2024-07-02 14:58] LABS: Troponin-I High Sensitivity 15.2 ng/L (<3.5-17.0)
[2024-07-02 15:15] LABS: Influenza A PCR NEGATIVE (Negative); Influenza B PCR NEGATIVE (Negative); Resp Syncy Virus RNA Qual PCR NEGATIVE (Negative); SARS COV2 PCR INHOUSE NEGATIVE (Negative)
--- NOTE | 2024-07-02 15:21 | MHC.EDTECH ---
delay on EKG due to patient going to Ct nurse aware
[2024-07-02] MEDS: cefTRIAXone sodium 2 GM VIAL IVPUSH (15:22)
[2024-07-02] MEDS: Morphine Sulfate 2 MG/ML CARTRIDGE IVPUSH (15:22)
[2024-07-02 16:07] LABS: Reflex Lactate? Lactic Acid Added
--- NOTE | 2024-07-02 16:08 | PM.IMHP ---
History of Present Illness Date of Service: 07/02/24 Chief Complaint: Fall This is a 69-year-old female patient with past medical history significant for CVA in 2019, history of hypertension, hyperlipidemia, GERD, COPD, depression and anxiety, difficulty in ambulation, has been told by PCP for outpatient neurology follow-up to rule out Parkinson's disease due to shuffle felt gait and history of fall, lives alone in an apartment daughter lives in same building, patient was last seen by daughter 2 days ago, she called her mom this morning but there was no response therefore she went to her mom's home and found her on the ground lying on her buttock, unsure when patient fell down, at present patient is awake alert pleasantly confused unable to recall how she fell she denies lightheadedness or dizziness , denies chest pain, no shortness of breath, denies urinary symptoms of urgency frequency, no cough or sputum production, no sick contacts, she does complain of bilateral buttock pain, she lives alone at home and take her medications, daughter helps with groceries, workup in the emergency room showed CPK 4464, AST 127, ALT 41, lactic acid 2.1 WBC 13.8, magnesium 1.5, urinalysis positive,, CT head showed no acute abnormalities CT cervical spine showed no acute fractures patient treated in the emergency room with 1 dose of IV ceftriaxone, IV normal saline. Review of Systems Review of Systems: General no headache no dizziness no fever chills. CVS no chest pain, no palpitation. Respiratory no cough no sob Gastrointestinal no nausea no vomiting, no abdominal pain no urgency no frequency Musculoskeletal bilateral buttock pain All other system reviewed and are negative. [facility] Medical History Lipid disorder Hypertension, essential Anxiety, generalized History of stroke Difficulty sleeping Dyspepsia Tobacco abuse Family History Father No problems noted. Mother No problems noted. Brother No problems noted. Son No problems noted. Daughter No problems noted. Sister No problems noted. Sister No problems noted. Other Mental health disorder Substance use disorder Surgical History No pertinent past surgical history Social History Housing: Apartment Alcohol intake: former Year quit: 2019 Patient Tobacco Use Status: Former Tobacco user Cigarette Packs Per Day: 0.5 Smoked in Last 30 Days: No e-Cigarette/Vaping Use: Never Used Use of substances other than those prescribed or required for medical reasons: No Advance Directives: No Advance Directives Information Provided: Yes Do you have a plan to hurt others: No Plan service: No Current occupational status: retired Cognitive needs: No Hearing needs: No Vision needs: No Meds Allergies Allergy/AdvReac Type Severity Reaction Status Date / Time tetracycline Allergy Unknown rash Verified 07/02/24 12:59 Active Medications: Current Medications Acetaminophen (Acetaminophen 325 Mg Tablet) 650 mg PO Q6H PRN PRN Reason: Pain, Mild 1-3,fever,headache Calcium Carbonate (Calcium Carbonate 750 Mg Tab.Chew) 750 mg PO Q4H PRN PRN Reason: Heartburn Ceftriaxone Sodium (Ceftriaxone Sodium 1 Gm Vial) 1 gm IVPUSH Q24H JEN Magnesium Sulfate (Magnesium Sulfate/H2o) 2 gm in 50 mls @ 25 mls/hr IV ONCE ONE Stop: 07/02/24 18:04 Lactated Ringer's (Lr) 1,000 mls @ 100 mls/hr IVCONT .Q10H JEN Magnesium Hydroxide (Milk Of Magnesia 30 Ml Oral.Susp) 30 ml PO DAILY PRN PRN Reason: Constipation Melatonin (Melatonin 3 Mg Tablet) 6 mg PO BEDTIME PRN PRN Reason: Insomnia Ondansetron HCl (Ondansetron Hcl 4 Mg/2 Ml Vial) 4 mg IVPUSH Q8H PRN PRN Reason: Nausea and Vomiting Sodium Chloride (0.9 % Sodium Chloride Flush 3 Ml Syringe) 3 ml IVFLUSH QSHIFT JEN Physical Exam Vital Signs and Narrative: Vital Signs: Last Vital Signs Temp 98.1 F 07/02/24 13:10 Pulse 87 07/02/24 14:13 Resp 18 07/02/24 14:13 BP 146/77 H 07/02/24 13:10 BMI result Body Mass Index 32.0 Const: Other: General resting comfortably in no acute distress. Anicteric sclera Moist mucous membrane Neck supple no JVD. CVS regular rate rhythm, Respiratory lungs clear to auscultation, no respiratory distress, no wheeze, no rhonchi. Gastrointestinal abdomen soft, obese, non tender, bowel sounds audible, no guarding , no rigidity. Extremities no edema. Neuro speech clear, moving all 4 extremities, confused. Skin no rash Psych poor insight Results Labs 07/02/24 13:57 07/02/24 14:20 Labs: Laboratory Results - last 24 hr 07/02/24 07/02/24 07/02/24 13:56 13:57 14:20 MCV 94.5 MCH 32.6 MCHC 34.5 RDW 14.5 Plt Count 227 D MPV 9.7 Immature Gran % (Auto) 0.4 Neut % (Auto) 82.0 H Lymph % (Auto) 8.8 L [place] % (Auto) 8.4 Eos % (Auto) 0.1 Baso % (Auto) 0.3 Lymph # (Auto) 1.2 [place] # (Auto) 1.2 Eos # (Auto) 0.0 Baso # (Auto) 0.0 Abs Immat Gran (auto) 0.06 H Absolute Neuts (auto) 11.4 H Absolute Nucleated RBC 0.000 Nucleated RBC % (auto) 0.0 PT 12.7 H INR 1.1 Anion Gap 20 Estim Creat Clear Calc 64.6 Estimated GFR > 60 Random Glucose 112 Lactic Acid 2.4 H* Calcium 8.7 D Magnesium 1.5 L Total Bilirubin 1.0 Direct Bilirubin 0.4 AST 127 H ALT 41 H Alkaline Phosphatase 70 Total Creatine Kinase 4464 H Troponin I High Sens 15.2 Total Protein 7.0 Albumin 3.7 Urine Color Dark Yellow Urine Appearance Turbid Urine pH 5.5 Ur Specific [place] >= 1.030 H Urine Protein 30 (1+) H Urine Glucose (UA) Negative Urine Ketones 40 Urine Blood Moderate (2+) H Urine Nitrite Positive H Ur Leukocyte Esterase Moderate (2+) H Urine RBC 11-20 H Urine WBC >50 H Ur Squamous Epith Cells 6-10 Urine Bacteria 3+ Epithelial Casts Present Hyaline Casts >20 Granular Casts Present Influenza Type A (PCR) NEGATIVE Influenza Type B (PCR) NEGATIVE RSV RNA Qual (PCR) NEGATIVE SARS-CoV-2 RNA (RT-PCR) NEGATIVE Assessment and Plan (1) Rhabdomyolysis: Status: Acute (2) Urinary tract infection: Status: Acute Plan 69-year-old female patient with past medical history significant for CVA, COPD, hypertension, hyperlipidemia, GERD, history of fall was brought into [facility] as patient was found on floor unknown down time, patient is unable to recall events surrounding the fall, patient appears confused as per patient's daughter patient has chronic mild confusion but seem worse today.. Acute toxic metabolic encephalopathy Likely due to rhabdomyolysis/UTI question underlying dementia undiagnosed Treat infection CT head showed no acute abnormality, C-spine CT scan showed no acute fractures. Follow clinical course Acute UTI with sepsis Noted to have tachycardia and leukocytosis Continue IV ceftriaxone, follow urine and blood culture Acute lactic acidosis likely due to dehydration treat with IV fluids Acute hypo magnesemia will replace and follow labs. Acute rhabdomyolysis Likely due to fall and being on floor for unknown duration, normal renal function Treat with IV fluid follow CPK Analgesics for pain Elevated liver enzymes likely due to acute rhabdo follow LFTs, no abdominal pain Abnormal EKG Patient denies chest pain, normal troponin will repeat troponin History of hypertension/HLD/prior CVA Stable BP, resume home medication once med rec completed. History of anxiety and depression resume home medication Unsteady gait and history of fall obtain PT eval DVT prophylaxis with Lovenox Full code In my clinical judgment patient required 2 night inpatient hospitalization for management of acute encephalopathy due to acute UTI/wrap to requiring IV antibiotics and IV fluids treatment can not be provided in less acute setting. Quality Stroke Does the patient have a stroke diagnosis?: No VTE Prior VTE?: No VTE Risk Level:: Medical - moderate - high VTE Device Contraindication: Treatment Not Indicated VTE Drug Contraindication: N/A - Med Ordered
[2024-07-02 17:24] LABS: ~Lactic Acid-LAB USE ONLY 3.4 mmol/L (0.5-2.0)
[2024-07-02 17:24] LABS: Troponin-I High Sensitivity 13.7 ng/L (<3.5-17.0)
[2024-07-02] MEDS: Magnesium Sulfate/H2O 2 GM/50 ML PIGGYBACK IV (17:26)
--- NOTE | 2024-07-02 17:26 | PHA.MEDREC ---
Addendum entered by Florinda Sheldon RPh 07/02/24 17:34: REVIEWED BY [facility] Original Note: Pharmacy Consult ? Medication Reconciliation Pharmacy has completed the medication reconciliation. Patient unable to provide history. Family member at bedside only knew about her albuterol inhaler and meclizine. She has meclizine prn for showers but reports it does not work for her and she still gets really dizzy. Combivent was last picked up 11/25/23, leaving off of med rec. Used claims for the rest of her meds.
[2024-07-02] MEDS: 0.9 % Sodium Chloride Flush 3 ML SYRINGE IVFLUSH (17:31)
[2024-07-02] MEDS: Lactated Ringers 1,000 ML 100 ML IVCONT (18:47)
[2024-07-02 18:55] LABS: Reflex Lactate? 2 Y
[2024-07-02 19:25] VITALS: BP 130/62; PULSE 127; RESP 23; TEMP 36.7; O2SAT 94
--- NOTE | 2024-07-02 19:33 | PC.NURSE ---
This RN assumed pt care @ 1900. Pt alert to self. Pt denies pain at this time Plan of care ongoing..
[2024-07-02 19:58] LABS: ~Lactic Acid-LAB USE ONLY 2.8 mmol/L (0.5-2.0)
--- NOTE | 2024-07-02 20:01 | PC.NURSE ---
Lactic of 2.8 rec'd from Bartolome @ lab. Dr Lee notified and aware. Per Dr. Lee no need to repeat lactic draw Plan of care ongoing.
--- NOTE | 2024-07-02 21:35 | PC.NURSE ---
This RN notified after coming out of another pts room by PA that pts HR was in the 140's. Dr. Lee notified and aware. New order for EKG. EKG completed and sent to Dr. Lee. Plan of care ongoing.
[2024-07-02] MEDS: Metoprolol Tartrate 5 MG/5 ML VIAL IVPUSH (21:46)
--- NOTE | 2024-07-02 21:52 | PC.NURSE ---
Pt medicated per [facility] Plan of care ongoing.
[2024-07-02 22:05] VITALS: BP 113/65; PULSE 106; RESP 18; O2SAT 94
--- NOTE | 2024-07-02 22:06 | PC.NURSE ---
Pt medicated per aug. HR after meds [address] Lee notified and aware of pts current HR Per Jesus anything less than 140 HR ok for the night. Plan of care ongoing.
[2024-07-03] VITALS (10 sets, daily range): BP systolic 108–158; BP diastolic 56–91; PULSE 93–125; RESP 18–23; TEMP 36.4–38.6; O2SAT 94–98
--- NOTE | 2024-07-03 01:42 | MHC.EDTECH ---
late entry: this tech assisted the pt w/ voiding. the pt had an accident and urinated on herself and this tech cleaned her and replaced bedding and hospital gown, also placed the pt on a pure wick for any further void needs as the pt is a high fall risk
[2024-07-03] MEDS: Acetaminophen 1,000 MG/100 ML PIGGYBACK 400 MG IV (03:41)
--- NOTE | 2024-07-03 03:46 | PC.NURSE ---
Pt medicated per [facility] Plan of care ongoing.
[2024-07-03 05:27] LABS: Hemoglobin 13.4 g/dl (12.0-16.0); Mean Corpuscular HGB Conc 34.4 g/dl (31.0-35.0); Mean Corpuscular Hemoglobin 32.3 pg (27.0-33.0); Mean Platelet Volume 9.9 fL (9.4-12.3); Platelet Count 208 X10*3/uL (160-400); Red Blood Count 4.15 X10*6/uL (4.20-5.50); Red Cell Distribution Width 14.7 % (11.0-16.0); White Blood Count 12.1 X10*3/uL (4.8-10.8)
[2024-07-03 05:39] LABS: Alanine Aminotransferase 36 U/L (0-31); Albumin Level 3.1 g/dL (3.5-5.0); Alkaline Phosphatase 59 U/L (39-117); Anion Gap 15 (12-20); Aspartate Amino Transferase 104 U/L (5-31); Bilirubin Direct 0.2 mg/dL (0.0-0.5); Bilirubin Total 0.5 mg/dL (0.0-1.0); Blood Urea Nitrogen 19 mg/dL (9-16); Calcium 8.4 mg/dL (8.4-10.2); Carbon Dioxide 22 mmol/L (22-29); Chloride 109 mmol/L (96-108); Estimated Glomerular Filt Rate > 60; Glucose Random 121 mg/dL (60-115); Magnesium 1.9 mg/dL (1.6-2.6); Potassium 3.5 mmol/L (3.3-5.1); Sodium 142 mmol/L (135-145)
[2024-07-03] MEDS: Lactated Ringers 1,000 ML 100 ML IVCONT ×2 (05:55→16:33)
--- NOTE | 2024-07-03 09:00 | PC.NURSE ---
received report from Kaia CAMARGO that magnesium had infused yesterday. reported to this functional tester typewriters that magnesium infused before night RN received pt but that it was charted as paused instead of infused. Changed chart to infused as per received report.
--- NOTE | 2024-07-03 11:45 | MHC.CM.PN ---
IMM 07/03/24, Pt lives alone, she does not have home health services. For DME: she has a cane and a walker. PCP confirmed: Corwin Samson, HCP discussed, pt will complete form and it will be added to chart. She can arrange transport home at DC. DCP: home with services. CM to follow for DC needs.
[2024-07-03] MEDS: cefTRIAXone sodium 1 GM VIAL IVPUSH (14:03)
--- NOTE | 2024-07-03 15:13 | HO.PM.IMPN ---
Subjective Subjective Date of Service: 07/03/24 Interval History: Being followed for fall/rhabdo and UTI Feels better this morning, more awake, alert, denies pain, no acute events overnight. Review of Systems All other system reviewed and are negative. Physical Exam Vital Signs: Vital Signs: Last Vital Signs Temp 97.6 F 07/03/24 10:06 Pulse 109 H 07/03/24 12:14 Resp 18 07/03/24 12:14 BP 121/56 L 07/03/24 12:14 Pulse Ox 96 07/03/24 12:14 O2 Del Method Room Air 07/03/24 12:14 BMI result Body Mass Index 32.0 Const: Other: General resting comfortably in no acute distress. Anicteric sclera Moist mucous membrane Neck supple no JVD. CVS regular rate rhythm, Respiratory lungs clear to auscultation, no respiratory distress, no wheeze, no rhonchi. Gastrointestinal abdomen soft, obese, non tender, bowel sounds audible, no guarding , no rigidity. Extremities no edema. Neuro speech clear, moving all 4 extremities Skin no rash/low bruise Psych appropriate affect Objective Data Active Medications Acetaminophen (Acetaminophen 325 Mg Tablet) 650 mg PO Q6H PRN PRN Reason: Pain, Mild 1-3,fever,headache Calcium Carbonate (Calcium Carbonate 750 Mg Tab.Chew) 750 mg PO Q4H PRN PRN Reason: Heartburn Ceftriaxone Sodium (Ceftriaxone Sodium 1 Gm Vial) 1 gm IVPUSH Q24H ON LICENSE OF [facility] Last Admin: 07/03/24 14:03 Dose: 1 gm Documented By: ABNER Lactated Ringer's (Lr) 1,000 mls @ 100 mls/hr IVCONT .Q10H ON LICENSE OF [facility] Last Admin: 07/03/24 05:55 Dose: 100 mls/hr Documented By: ERLINDA Magnesium Hydroxide (Milk Of Magnesia 30 Ml Oral.Susp) 30 ml PO DAILY PRN PRN Reason: Constipation Melatonin (Melatonin 3 Mg Tablet) 6 mg PO BEDTIME PRN PRN Reason: Insomnia Ondansetron HCl (Ondansetron Hcl 4 Mg/2 Ml Vial) 4 mg IVPUSH Q8H PRN PRN Reason: Nausea and Vomiting Sodium Chloride (0.9 % Sodium Chloride Flush 3 Ml Syringe) 3 ml IVFLUSH QSHIFT ON LICENSE OF [facility] Last Admin: 07/03/24 08:48 Dose: Not Given Documented By: ABNER Non-Admin Reason: IV Running Labs 07/03/24 04:53 07/03/24 04:53 Labs: Laboratory Results - last 24 hr 07/02/24 07/02/24 07/02/24 14:20 16:50 16:52 MCV MCH MCHC RDW Plt Count MPV Absolute Nucleated RBC Nucleated RBC % (auto) Anion Gap Estim Creat Clear Calc Estimated GFR Random Glucose Lactic Acid F/U @ 2Hr 3.4 H* Lactic Acid F/U @ 4Hr Calcium Magnesium Total Bilirubin Direct Bilirubin AST ALT Alkaline Phosphatase Total Creatine Kinase Troponin I High Sens 13.7 Total Protein Albumin Influenza Type A (PCR) NEGATIVE Influenza Type B (PCR) NEGATIVE RSV RNA Qual (PCR) NEGATIVE SARS-CoV-2 RNA (RT-PCR) NEGATIVE 07/02/24 07/03/24 19:05 04:53 MCV 94.0 MCH 32.3 MCHC 34.4 RDW 14.7 Plt Count 208 MPV 9.9 Absolute Nucleated RBC 0.000 Nucleated RBC % (auto) 0.0 Anion Gap 15 Estim Creat Clear Calc 70.0 Estimated GFR > 60 Random Glucose 121 H Lactic Acid F/U @ 2Hr Lactic Acid F/U @ 4Hr 2.8 H* Calcium 8.4 Magnesium 1.9 Total Bilirubin 0.5 Direct Bilirubin 0.2 AST 104 H ALT 36 H Alkaline Phosphatase 59 Total Creatine Kinase 2933 H Troponin I High Sens Total Protein 6.0 L Albumin 3.1 L Influenza Type A (PCR) Influenza Type B (PCR) RSV RNA Qual (PCR) SARS-CoV-2 RNA (RT-PCR) Microbiology Microbiology Results: Microbiology 07/02/24 Unknown Urine Culture - Preliminary Urine clean catch - Clean Catch Midstream Culture in progress. Assessment and Plan (1) Rhabdomyolysis: Status: Acute (2) Elevated lactic acid level: Status: Acute (3) Leukocytosis: Status: Acute (4) Urinary tract infection: Status: Acute Plan 69-year-old female patient with past medical history significant for CVA, COPD, hypertension, hyperlipidemia, GERD, history of fall was brought into [facility] as patient was found on floor unknown down time, patient is unable to recall events surrounding the fall, patient appears confused as per patient's daughter patient has chronic mild confusion but seem worse today.. Acute toxic metabolic encephalopathy Resolved was Likely due to rhabdomyolysis/UTI , seems to have underlying dementia undiagnosed CT head showed no acute abnormality, C-spine CT scan showed no acute fractures. Acute UTI with sepsis WBC trending down, no fevers Continue IV ceftriaxone, follow urine and blood culture Acute lactic acidosis likely due to dehydration improved. Acute hypo magnesemia repleted and normalized Acute rhabdomyolysis Likely due to fall and being on floor for unknown duration, normal renal function Treat with IV fluid CPK improved from 4464 to 02300 Analgesics for pain Elevated liver enzymes likely due to acute rhabdo , LFTs trending down Abnormal EKG will repeat EKG, normal troponin no chest pain, resume metoprolol, statin and Plavix History of hypertension/HLD/prior CVA resume home medication including statin Plavix and beta-blockers History of anxiety and depression resume home medication Unsteady gait and history of fall PT eval DVT prophylaxis with Lovenox Full code In my clinical judgment patient require continued inpatient hospitalization for management of acute encephalopathy due to acute UTI/wrap to requiring IV antibiotics and IV fluids treatment can not be provided in less acute setting. Quality Stroke Does the patient have a stroke diagnosis?: No VTE Prior VTE?: No VTE Risk Level:: Medical - moderate - high VTE Device Contraindication: Treatment Not Indicated VTE Drug Contraindication: N/A - Med Ordered
[2024-07-03] MEDS: Metoprolol Tartrate 25 MG TABLET PO ×2 (16:33→20:07)
[2024-07-04] VITALS (7 sets, daily range): BP systolic 137–165; BP diastolic 68–82; PULSE 82–95; RESP 16–21; TEMP 36.4–37.1; O2SAT 94–97
--- NOTE | 2024-07-04 | ECG_ITS ---
Test Reason : abnormal ekg Blood Pressure : */* mmHG Vent. Rate : 81 BPM Atrial Rate : 81 BPM P-R Int : 156 ms QRS Dur : 74 ms QT Int : 410 ms P-R-T Axes : 57 18 49 degrees QTcB Int : 476 ms Normal sinus rhythm Normal ECG When compared with ECG of 02-Jul-2024 21:34, Vent. rate has decreased by [address] no longer depressed in Anterolateral leads Nonspecific T wave abnormality no longer evident in Inferior leads Nonspecific T wave abnormality no longer evident in Lateral leads Referred By: Dominik Drake Electronically Signed By: LUCAS DEL CID MD
[2024-07-04] MEDS: Pantoprazole Sodium 20 MG TABLET.DR PO (05:11)
[2024-07-04] MEDS: Metoprolol Tartrate 25 MG TABLET PO ×2 (07:30→20:06)
[2024-07-04] MEDS: Atorvastatin Calcium 80 MG TABLET PO (07:30)
[2024-07-04] MEDS: Clopidogrel Bisulfate 75 MG TABLET PO (07:31)
[2024-07-04] MEDS: DULoxetine HCl 30 MG CAPSULE.DR PO (07:31)
[2024-07-04] MEDS: Lactated Ringers 1,000 ML 60 ML IVCONT (07:32)
[2024-07-04 07:46] LABS: Anion Gap 11 (12-20); Blood Urea Nitrogen 13 mg/dL (9-16); Calcium 8.4 mg/dL (8.4-10.2); Carbon Dioxide 25 mmol/L (22-29); Chloride 110 mmol/L (96-108); Creatinine Clr Calc Pharmacy 76.2; Estimated Glomerular Filt Rate > 60; Glucose Random 99 mg/dL (60-115); Potassium 3.8 mmol/L (3.3-5.1); Sodium 142 mmol/L (135-145)
[2024-07-04] MEDS: Acetaminophen 325 MG TABLET 650 MG PO (09:56)
--- NOTE | 2024-07-04 11:53 | HO.PM.IMPN ---
Subjective Subjective Date of Service: 07/04/24 Interval History: Being followed for falls/rhabdo and UTI. Patient feeling better today complaining of buttock pain due to fall no urinary symptoms, tolerating diet more awake alert seems to be at her baseline. No acute events overnight. Review of Systems All other system reviewed and are negative. Constitutional Constitutional: Reports no additional constitutional complaints, Denies body ache(s), Denies chills, Denies fever(s), Denies headache(s) and Denies weakness Eyes Eyes: Reports no additional eye complaints and Denies change in vision ENT Ears, Nose, Mouth, and Throat: Reports system reviewed and no additional complaints, except as documented, Denies dizziness, Denies headache(s), Denies nasal congestion, Denies nasal discharge and Denies neck pain Cardiovascular Cardiovascular: Reports no additional cardiovascular complaints, Denies chest pain, Denies leg edema and Denies dyspnea Respiratory Respiratory: Reports no additional respiratory complaints, Denies cough and Denies dyspnea Gastrointestinal Gastrointestinal: Reports no additional gastrointestinal complaints, Denies abdominal pain, Denies diarrhea, Denies nausea and Denies vomiting Musculoskeletal Musculoskeletal: Reports no additional musculoskeletal complaints, Denies back pain, Denies arthralgias, Denies joint swelling, Denies neck pain, Denies numbness and Denies tingling Integumentary/Breasts Skin/Breast: Reports no additional skin complaints and Denies rash Neurologic Neurologic: Reports system reviewed and no additional complaints, except as documented, Denies Abnormal speech present, Denies dizziness, Denies headache(s), Denies numbness, Denies tingling and Denies weakness Physical Exam Vital Signs: Vital Signs: Last Vital Signs Temp 97.5 F 07/04/24 11:34 Pulse 87 07/04/24 11:34 Resp 16 07/04/24 11:34 BP 145/68 H 07/04/24 11:34 Pulse Ox 94 07/04/24 11:34 O2 Del Method Room Air 07/04/24 11:34 BMI result Body Mass Index 32.0 Const: Other: General resting comfortably in no acute distress. Anicteric sclera Moist mucous membrane Neck supple no JVD. CVS regular rate rhythm, Respiratory lungs clear to auscultation, no respiratory distress, no wheeze, no rhonchi. Gastrointestinal abdomen soft, obese, non tender, bowel sounds audible, no guarding , no rigidity. Extremities no edema. Good range of motion both hips, knees and ankles. Neuro speech clear, moving all 4 extremities Skin no rash/no bruise Psych appropriate affect Neuro: Speech: No Abnormal speech present Objective Data Active Medications Acetaminophen (Acetaminophen 325 Mg Tablet) 650 mg PO Q6H PRN PRN Reason: Pain, Mild 1-3,fever,headache Last Admin: 07/04/24 09:56 Dose: 650 mg Documented By: SANDRITA Albuterol Sulfate (Albuterol Sulfate 90 Mcg 8 Gm Inhaler) 2 puff INHALE QID PRN PRN Reason: Shortness Of Breath Or Wheezing Atorvastatin Calcium (Atorvastatin Calcium 80 Mg Tablet) 80 mg PO DAILY [facility] Last Admin: 07/04/24 07:30 Dose: 80 mg Documented By: SANDRITA Calcium Carbonate (Calcium Carbonate 750 Mg Tab.Chew) 750 mg PO Q4H PRN PRN Reason: Heartburn Ceftriaxone Sodium (Ceftriaxone Sodium 1 Gm Vial) 1 gm IVPUSH Q24H [facility] Last Admin: 07/03/24 14:03 Dose: 1 gm Documented By: ABNER Clopidogrel Bisulfate (Clopidogrel Bisulfate 75 Mg Tablet) 75 mg PO DAILY [facility] Last Admin: 07/04/24 07:31 Dose: 75 mg Documented By: SANDRITA Duloxetine HCl (Duloxetine Hcl 30 Mg Capsule.) 30 mg PO DAILY [facility] Last Admin: 07/04/24 07:31 Dose: 30 mg Documented By: SANDRITA Lactated Ringer's (Lr) 1,000 mls @ 60 mls/hr IVCONT .[id number] [facility] Last Admin: 07/04/24 07:32 Dose: 60 mls/hr Documented By: SANDRITA Magnesium Hydroxide (Milk Of Magnesia 30 Ml Oral.Susp) 30 ml PO DAILY PRN PRN Reason: Constipation Melatonin (Melatonin 3 Mg Tablet) 6 mg PO BEDTIME PRN PRN Reason: Insomnia Metoprolol Tartrate (Metoprolol Tartrate 25 Mg Tablet) 25 mg PO BID [facility]; Protocol Last Admin: 07/04/24 07:30 Dose: 25 mg Documented By: SANDRITA Ondansetron HCl (Ondansetron Hcl 4 Mg/2 Ml Vial) 4 mg IVPUSH Q8H PRN PRN Reason: Nausea and Vomiting Pantoprazole Sodium (Pantoprazole Sodium 20 Mg Tablet.) 20 mg PO DAILY@0630 [facility] Last Admin: 07/04/24 05:11 Dose: 20 mg Documented By: SOLEDAD Sodium Chloride (0.9 % Sodium Chloride Flush 3 Ml Syringe) 3 ml IVFLUSH QSHIFT [facility] Last Admin: 07/04/24 07:27 Dose: Not Given Documented By: SANDRITA Non-Admin Reason: IV Running Labs 07/03/24 04:53 07/04/24 07:00 Labs: Laboratory Results - last 24 hr 07/04/24 07:00 Hold Purple Top SEE NOTE Anion Gap 11 L Estim Creat Clear Calc 76.2 Estimated GFR > 60 Random Glucose 99 Calcium 8.4 Microbiology Microbiology Results: Microbiology 07/02/24 Unknown Urine Culture - Preliminary Urine clean catch - Clean Catch Midstream Gram negative peterson 07/02/24 14:42 Blood Culture - Preliminary Blood - Venous No growth after 24 hours. 07/02/24 14:23 Blood Culture - Preliminary Blood - Venous No growth after 24 hours. Assessment and Plan (1) Rhabdomyolysis: Status: Acute (2) Elevated lactic acid level: Status: Acute (3) Leukocytosis: Status: Acute (4) Urinary tract infection: Status: Acute (5) Difficulty walking: Status: Acute Plan 69-year-old female patient with past medical history significant for CVA, COPD, hypertension, hyperlipidemia, GERD, history of fall was brought into [facility] as patient was found on floor unknown down time, patient is unable to recall events surrounding the fall, patient appears confused as per patient's daughter patient has chronic mild confusion but seem worse today.. Acute toxic metabolic encephalopathy Resolved was Likely due to rhabdomyolysis/UTI , no diagnosis of dementia, question mild cognitive impairment. CT head showed no acute abnormality, C-spine CT scan showed no acute fractures. Acute UTI with sepsis WBC trending down, no fevers Continue IV ceftriaxone, urine culture grew Gram-negative peterson, blood cultures x2 negative times 24 hours, follow sensitivities Acute lactic acidosis likely due to dehydration improved with IV fluids. Acute hypo magnesemia repleted and normalized Acute rhabdomyolysis Likely due to fall and being on floor for unknown duration, normal renal function CPK improved from 4464 to 55408 labs pending today Good by mouth intake ,will DC IV fluid, Analgesics for pain Elevated liver enzymes likely due to acute rhabdo , LFTs trending down. Abnormal EKG nonspecific ST changes V3 to V6, normal troponin ,no chest pain, cont. metoprolol, statin and Plavix Repeat EKG showed ST no longer depressed in anterior lateral lead and nonspecific T-wave abnormality resolved. Consider cardiology consultation if patient noted to have chest pain/sob History of hypertension/HLD/prior CVA cont. statin Plavix and beta-blockers History of anxiety and depression continue Cymbalta Unsteady gait and history of fall ,seen by PT they recommend short-term rehab DVT prophylaxis with Lovenox Full code In my clinical judgment patient require continued inpatient hospitalization for management of acute encephalopathy due to acute UTI/rhabdomyolysis or IV antibiotics require close clinical and electrolyte monitoring. Quality Stroke Does the patient have a stroke diagnosis?: No VTE Prior VTE?: No VTE Risk Level:: Medical - moderate - high VTE Device Contraindication: Treatment Not Indicated VTE Drug Contraindication: N/A - Med Ordered
--- NOTE | 2024-07-04 13:21 | MHC.CM.PN ---
EMR REVIEWED, P.T. RECOMMENDING STR, PER PT REQUEST CM CONTACTED PT'S DTR TO DISCUSS DISPO, PT'S DTR SHABANA CONTACTED AT NUMBER ON FILE, PER CONVERSATION CM WILL SEND OUT REFERRAL TO [facility] [place] [facility], PT NOT MEDICALLY CLEARED TODAY AND WILL CONT TO FOLLOW DC NEEDS.
[2024-07-04] MEDS: Lactated Ringers 1,000 ML 100 ML IVCONT (14:33)
[2024-07-04] MEDS: cefTRIAXone sodium 1 GM VIAL IVPUSH (16:32)
[2024-07-04] MEDS: 0.9 % Sodium Chloride Flush 3 ML SYRINGE IVFLUSH ×2 (16:32→20:06)
[2024-07-05] VITALS (8 sets, daily range): BP systolic 156–187; BP diastolic 70–86; PULSE 73–93; RESP 18–20; TEMP 36.1–37.6; O2SAT 92–96
[2024-07-05] MEDS: Lactated Ringers 1,000 ML 100 ML IVCONT ×3 (00:48→21:09)
[2024-07-05] MEDS: Pantoprazole Sodium 20 MG TABLET.DR PO (05:40)
[2024-07-05 07:09] LABS: Hematocrit 37.9 % (37.0-47.0); Hemoglobin 12.9 g/dl (12.0-16.0); Mean Corpuscular Hemoglobin 32.8 pg (27.0-33.0); Mean Corpuscular Volume 96.4 fL (80.0-98.0); Mean Platelet Volume 9.6 fL (9.4-12.3); Platelet Count 194 X10*3/uL (160-400); Red Blood Count 3.93 X10*6/uL (4.20-5.50); Red Cell Distribution Width 14.7 % (11.0-16.0); White Blood Count 7.9 X10*3/uL (4.8-10.8)
[2024-07-05 07:30] LABS: Alanine Aminotransferase 33 U/L (0-31); Albumin Level 2.8 g/dL (3.5-5.0); Anion Gap 12 (12-20); Aspartate Amino Transferase 70 U/L (5-31); Bilirubin Direct 0.2 mg/dL (0.0-0.5); Bilirubin Total 0.4 mg/dL (0.0-1.0); Blood Urea Nitrogen 10 mg/dL (9-16); Calcium 8.6 mg/dL (8.4-10.2); Carbon Dioxide 27 mmol/L (22-29); Chloride 107 mmol/L (96-108); Estimated Glomerular Filt Rate > 60; Glucose Random 99 mg/dL (60-115); Potassium 3.6 mmol/L (3.3-5.1); Sodium 142 mmol/L (135-145); Total Protein 5.6 g/dL (6.5-8.0)
[2024-07-05 07:34] LABS: Alkaline Phosphatase 54 U/L (39-117)
[2024-07-05] MEDS: Atorvastatin Calcium 80 MG TABLET PO (09:44)
[2024-07-05] MEDS: DULoxetine HCl 30 MG CAPSULE.DR PO (09:44)
[2024-07-05] MEDS: Metoprolol Tartrate 25 MG TABLET PO ×2 (09:44→21:11)
[2024-07-05] MEDS: Clopidogrel Bisulfate 75 MG TABLET PO (09:44)
[2024-07-05] MEDS: 0.9 % Sodium Chloride Flush 3 ML SYRINGE IVFLUSH ×2 (09:44→16:39)
--- NOTE | 2024-07-05 11:59 | MHC.CM.PN ---
Addendum entered by Belgica Hou RN 07/05/24 13:37: CM MET W/PT TO LET HER KNOW SHE MAY DC EARLY TODAY, CM OFFERED TO CONTACT HER DTR/HCP SHABANA HOWEVER PT DECLINED STATING SHE WILL CALL HER, RM PHONE PLACED NEAR PT. Addendum entered by Belgica Hou RN 07/05/24 13:13: PER SNF REQUEST PT PREBOOKED FOR 4:30PM Original Note: PT MEDICALLY CLEARED FOR DC TO STR AT [facility] SUBMITTING FOR INSURANCE AUTH, PT WILL NEED [facility] FOR BLS TRANSPORT
--- NOTE | 2024-07-05 14:01 | P.DS_ITS ---
DS: Providers Provider Date of Service: 07/05/24 Date of admission: 07/02/24 16:03 Date of discharge: 07/05/24 Primary care physician: Corwin Samson MD DS: Diagnosis Discharge Diagnosis (1) Rhabdomyolysis: Status: Acute (2) Elevated lactic acid level: Status: Acute (3) Leukocytosis: Status: Acute (4) Urinary tract infection: Status: Acute (5) Difficulty walking: Status: Acute DS: Summary Hospital Course Hospital Course: 69-year-old female patient with past medical history significant for CVA in 2019, history of hypertension, hyperlipidemia, GERD, COPD, depression and anxiety, difficulty in ambulation, has been told by PCP for outpatient neurology follow-up to rule out Parkinson's disease due to shuffle felt gait and history of fall, lives alone in an apartment daughter lives in same building, patient was last seen by daughter 2 days ago, she called her mom this morning but there was no response therefore she went to her mom's home and found her on the ground lying on her buttock, unsure when patient fell down, at present patient is awake alert pleasantly confused unable to recall how she fell she denies lightheadedness or dizziness , denies chest pain, no shortness of breath, denies urinary symptoms of urgency frequency, no cough or sputum production, no sick contacts, she does complain of bilateral buttock pain, she lives alone at home and take her medications, daughter helps with groceries, workup in the emergency room showed CPK 4464, AST 127, ALT 41, lactic acid 2.1 WBC 13.8, magnesium 1.5, urinalysis positive,, CT head showed no acute abnormalities CT cervical spine showed no acute fractures patient treated in the emergency room with 1 dose of IV ceftriaxone, IV normal saline. Hospital Course Patient admitted to telemetry where monitor failed to demonstrate any acute dysrhythmias. Total CKs responded well to volume repletion. Creatinine remains stable. Urine did grow out E coli which was sensitive to ceftriaxone. Patient received 4 days of IV ceftriaxone and now will be switch to Ceftin and complete an outpatient course. Blood pressures did rise and response to volume; no additional treatment was instituted and patient should be followed up in the coming week as she equilibrates with regard to fluid status. Further changes can be instituted as indicated by clinical course. Time Attestation Discharge Coordination Time (in mins): 35 Quality: Safe Use of Opioids Does Pt have an Active Cancer Diagnosis on the Problem List?: No Quality: Stroke Does the patient have a stroke diagnosis?: No Physical Exam Vital Signs: Vital Signs: Last Vital Signs Temp 98.2 F 07/05/24 11:54 Pulse 73 07/05/24 11:54 Resp 18 07/05/24 11:54 BP 187/80 H 07/05/24 11:54 Pulse Ox 96 07/05/24 11:54 O2 Del Method Room Air 07/05/24 11:54 BMI result Body Mass Index 32.0 Const: Other: Awake alert oriented x3 in no acute distress Resp: Other: Clear to auscultation bilaterally no rales rhonchi or wheezes Cardio: Other: No S4; positive S1-S2; no S3 murmurs rubs or gallops Extrem: Other: No edema bilaterally DS: Data Data Completed and Pending Labs on day of discharge: Laboratory Results - last 24 hr 07/04/24 07/05/24 15:14 06:39 WBC 7.9 RBC 3.93 L Hgb 12.9 Hct 37.9 MCV 96.4 MCH 32.8 MCHC 34.0 RDW 14.7 Plt Count 194 MPV 9.6 Absolute Nucleated RBC 0.000 Nucleated RBC % (auto) 0.0 Sodium 142 Potassium 3.6 Chloride 107 Carbon Dioxide 27 Anion Gap 12 BUN 10 Creatinine 0.63 Estim Creat Clear Calc 81.0 Estimated GFR > 60 Random Glucose 99 Calcium 8.6 Total Bilirubin 0.4 Direct Bilirubin 0.2 AST 70 H ALT 33 H Alkaline Phosphatase 54 Total Creatine Kinase 1369 H 999 H Total Protein 5.6 L Albumin 2.8 L Preliminary micro results at discharge 07/02/24 14:42 Blood Culture - Preliminary Blood - Venous No growth after 48 hours. 07/02/24 14:23 Blood Culture - Preliminary Blood - Venous No growth after 48 hours. Discharge Plan Discharge Anticipated Discharge Date/Time: 07/05/24 13:57 Patient Disposition: Xfer SNF Discharge Diagnosis: Rhabdomyolysis Referrals: [facility] [Outside] - 1 Day (SHORT TERM REHAB ) Corwin Samson MD [Primary Care Provider] - 1 Week Discharge Medications: New cefuroxime axetil 500 mg tablet 500 mg PO BID 7 Days Qty: 14 0RF Continued (DME) walker Misc See Rx Instructions .Route Qty: 1 0RF Rx Instructions: wheeled walker with seat and brakes (DME) bedside commode Kit See Rx Instructions .Route Qty: 1 0RF Rx Instructions: As directed aspirin 81 mg tablet,chewable 1 tab PO DAILY 90 Days Qty: 90 3RF clopidogrel 75 mg tablet 75 mg PO DAILY Qty: 90 3RF meclizine 25 mg tablet 25 mg PO DAILY PRN (Reason: 1 hour before shower) Qty: 90 0RF atorvastatin 80 mg tablet 80 mg PO DAILY 90 Days Qty: 90 0RF lisinopril 20 mg tablet 20 mg PO DAILY 90 Days Qty: 90 0RF metoprolol tartrate 50 mg tablet 50 mg PO BID Qty: 180 1RF albuterol sulfate 90 mcg/actuation Aerosol Powdr Breath Activated 2 inh INHALATION QID PRN (Reason: Shortness Of Breath Or Wheezing) omeprazole 20 mg capsule,delayed release(DR/EC) 20 mg PO DAILY@0630 duloxetine 30 mg capsule,delayed release(DR/EC) 30 mg PO DAILY (DME) Bp Monitor See Rx Instructions .Route .MEDSUPPLY Qty: 1 0RF Rx Instructions: As directed Discharge Orders: Discharge Order (Routine); Ordered 07/05/24 Ordered By: Remi Rebollar Diet: Advance to usual diet Activity on Discharge: As tolerated Stand Alone Forms: Patient Portal Discharge page Print Language: Slovenian Care Plan Goals: Resume all meds as listed on discharge summary. Health Concerns: BP is running slightly elevated however patient given volume secondary to rhabdomyolysis. This will have to be reassessed to facility and blood pressure treated as clinically indicated. Plan of Treatment: Ceftin 500 mg twice daily for 14 days has been added to treat your UTI Assessment: See discharge summary
[2024-07-05] MEDS: cefTRIAXone sodium 1 GM VIAL IVPUSH (16:39)
[2024-07-05] MEDS: Albuterol Sulfate 90 MCG 8 GM INHALER 2 PUFF INHALE (21:09)
[2024-07-06 00:27] VITALS: BP 172/85; PULSE 93; RESP 20; TEMP 36.9; O2SAT 96
[2024-07-06] MEDS: 0.9 % Sodium Chloride Flush 3 ML SYRINGE IVFLUSH ×2 (01:20→08:08)
[2024-07-06 03:56] VITALS: BP 156/99; PULSE 93; RESP 20; TEMP 36.8; O2SAT 92
[2024-07-06] MEDS: Pantoprazole Sodium 20 MG TABLET.DR PO (06:17)
[2024-07-06 07:19] VITALS: BP 160/82; PULSE 65; RESP 20; TEMP 36.6; O2SAT 93
[2024-07-06] MEDS: DULoxetine HCl 30 MG CAPSULE.DR PO (08:06)
[2024-07-06] MEDS: Metoprolol Tartrate 25 MG TABLET PO (08:06)
[2024-07-06] MEDS: Clopidogrel Bisulfate 75 MG TABLET PO (08:06)
[2024-07-06] MEDS: Atorvastatin Calcium 80 MG TABLET PO (08:07)
[2024-07-06] MEDS: Lactated Ringers 1,000 ML 100 ML IVCONT (08:08)
[2024-07-06 11:09] VITALS: PULSE 90; RESP 16; O2SAT 96
--- NOTE | 2024-07-06 11:14 | HO.PM.IMPN ---
Subjective Subjective Date of Service: 07/06/24 Interval History: No acute issues overnight. Status remained [facility] for [facility] Review of Systems Denies chest pain Admits shortness of breath with exertion that has improved Denies nausea vomiting diarrhea Denies fever chills Physical Exam Vital Signs: Vital Signs: Last Vital Signs Temp 97.9 F 07/06/24 07:19 Pulse 90 07/06/24 11:09 Resp 16 07/06/24 11:09 BP 160/82 H 07/06/24 07:19 Pulse Ox 93 07/06/24 07:19 O2 Del Method Room Air 07/06/24 07:19 BMI result Body Mass Index 32.0 Const: Other: Awake alert oriented x3 in no acute distress Resp: Other: Clear to auscultation bilaterally no rales rhonchi or wheezes Cardio: Other: No S4; positive S1-S2; no S3 murmurs rubs or gallops Extrem: Other: No edema bilaterally Objective Data Active Medications Acetaminophen (Acetaminophen 325 Mg Tablet) 650 mg PO Q6H PRN PRN Reason: Pain, Mild 1-3,fever,headache Last Admin: 07/04/24 09:56 Dose: 650 mg Documented By: SANDRITA Albuterol/Ipratropium (Albuterol/Iprat 2.5/0.5mg 3 Ml Ampul.Neb) 3 ml INHALE RQ4H WHILE AWAKE PRN PRN Reason: wheezing Atorvastatin Calcium (Atorvastatin Calcium 80 Mg Tablet) 80 mg PO DAILY [facility] Last Admin: 07/06/24 08:07 Dose: 80 mg Documented By: SHERLYN Calcium Carbonate (Calcium Carbonate 750 Mg Tab.Chew) 750 mg PO Q4H PRN PRN Reason: Heartburn Ceftriaxone Sodium (Ceftriaxone Sodium 1 Gm Vial) 1 gm IVPUSH Q24H [facility] Last Admin: 07/05/24 16:39 Dose: 1 gm Documented By: CRUZ Clopidogrel Bisulfate (Clopidogrel Bisulfate 75 Mg Tablet) 75 mg PO DAILY [facility] Last Admin: 07/06/24 08:06 Dose: 75 mg Documented By: SHERLYN Duloxetine HCl (Duloxetine Hcl 30 Mg Capsule.Dr) 30 mg PO DAILY [facility] Last Admin: 07/06/24 08:06 Dose: 30 mg Documented By: SHERLYN Lactated Ringer's (Lr) 1,000 mls @ 100 mls/hr IVCONT .Q10H [facility] Last Admin: 07/06/24 08:08 Dose: 100 mls/hr Documented By: SHERLYN Magnesium Hydroxide (Milk Of Magnesia 30 Ml Oral.Susp) 30 ml PO DAILY PRN PRN Reason: Constipation Melatonin (Melatonin 3 Mg Tablet) 6 mg PO BEDTIME PRN PRN Reason: Insomnia Metoprolol Tartrate (Metoprolol Tartrate 25 Mg Tablet) 25 mg PO BID [facility]; Protocol Last Admin: 07/06/24 08:06 Dose: 25 mg Documented By: SHERLYN Ondansetron HCl (Ondansetron Hcl 4 Mg/2 Ml Vial) 4 mg IVPUSH Q8H PRN PRN Reason: Nausea and Vomiting Pantoprazole Sodium (Pantoprazole Sodium 20 Mg Tablet.Dr) 20 mg PO DAILY@0630 [facility] Last Admin: 07/06/24 06:17 Dose: 20 mg Documented By: MANUEL Sodium Chloride (0.9 % Sodium Chloride Flush 3 Ml Syringe) 3 ml IVFLUSH QSHIFT [facility] Last Admin: 07/06/24 08:08 Dose: 3 ml Documented By: SHERLYN Labs 07/05/24 06:39 07/05/24 06:39 Microbiology Microbiology Results: Microbiology 07/02/24 Unknown Urine Culture - Final Urine clean catch - Clean Catch Midstream Escherichia coli Assessment and Plan (1) Urinary tract infection: Status: Acute (2) Rhabdomyolysis: Status: Acute Assessment and Plan: 69-year-old female presents after unknown downtime with rhabdomyolysis and mental status changes. Workup consistent with E coli sensitive to ceftriaxone. Patient is medically acceptable for discharge to short-term rehab. See discharge summary for details Quality Stroke Does the patient have a stroke diagnosis?: No VTE Prior VTE?: No VTE Risk Level:: Medical - moderate - high VTE Device Contraindication: Treatment Not Indicated VTE Drug Contraindication: N/A - Med Ordered
--- NOTE | 2024-07-06 11:37 | MHC.CM.PN ---
Pt to DC to STR at [facility] today.
== END 2024-07-06 11:35 | disposition skilled nursing facility (03) | DRG 871 ==
LOC: HO.ED 15:34 → HO.EDOVER 16:12 → HO.IMC 07-03 14:22
PROVIDERS: Nurse Practitioner Family; Admitting Provider Hospitalist; Emergency Provider Emergency Medicine; PCP Internal Medicine; Visit Provider Hospitalist
DX: A41.9 Sepsis, unspecified organism (principal); G92.8 Other toxic encephalopathy; M62.82 Rhabdomyolysis; N39.0 Urinary tract infection, site not specified; E87.21 Acute metabolic acidosis; F03.90 Unspecified dementia, unspecified severity, without behavioral disturbance, psychotic disturbance, mood disturbance, and anxiety; E83.42 Hypomagnesemia; E86.0 Dehydration; W19.XXXA Unspecified fall, initial encounter; B96.20 Unspecified Escherichia coli [E. coli] as the cause of diseases classified elsewhere; Z20.822 Contact with and (suspected) exposure to COVID-19; I69.328 Other speech and language deficits following cerebral infarction; Z87.891 Personal history of nicotine dependence; Z79.02 Long term (current) use of antithrombotics/antiplatelets; Z79.82 Long term (current) use of aspirin; Z79.899 Other long term (current) drug therapy
CPT/HCPCS: 0241U; 36415; 70450; 71045; 72125; 80048; 80076; 81001; 82550; 83605; 83735; 84484; 85025; 85027; 85610; 87040; 87086; 87088; 87186; 93005; 94640; 97162; 97530; 99285; J0131; J0696; J2270; J3475; J7120

== ENCOUNTER → 2024-07-02 13:24 | Outpatient (BNV) | payer MEDICARE, MEDICAID, SELFPAY | PROVIDERS: Emergency Provider Emergency Medicine; PCP Internal Medicine; Visit Provider Radiology Vascular & Interventional Radiology | DX: S19.9XXA Unspecified injury of neck, initial encounter (principal); S09.90XA Unspecified injury of head, initial encounter; R06.02 Shortness of breath | CPT/HCPCS: 70450; 71045; 72125 ==

== ENCOUNTER 2024-07-02 16:03 | Outpatient (BNV) | payer MEDICARE, MEDICAID, SELFPAY | END 2024-07-04 12:07 | PROVIDERS: Admitting Provider Hospitalist; Emergency Provider Emergency Medicine; PCP Internal Medicine; Visit Provider Internal Medicine Cardiovascular Disease | DX: R94.31 Abnormal electrocardiogram [ECG] [EKG] (principal) | CPT/HCPCS: 93010 ==

== ENCOUNTER 2024-07-02 16:03 | Outpatient (BNV) | payer MEDICARE, MEDICAID, SELFPAY | END 2024-07-02 21:34 | PROVIDERS: Admitting Provider Hospitalist; Emergency Provider Emergency Medicine; PCP Internal Medicine; Visit Provider Internal Medicine Cardiovascular Disease | DX: R94.31 Abnormal electrocardiogram [ECG] [EKG] (principal) | CPT/HCPCS: 93010 ==

== ENCOUNTER → 2024-07-02 16:03 | Outpatient (BNV) | payer MEDICARE, MEDICAID, SELFPAY | PROVIDERS: Admitting Provider Hospitalist; Emergency Provider Emergency Medicine; PCP Internal Medicine; Visit Provider Hospitalist | DX: A41.9 Sepsis, unspecified organism (principal); N39.0 Urinary tract infection, site not specified; M62.82 Rhabdomyolysis; D72.829 Elevated white blood cell count, unspecified; R79.89 Other specified abnormal findings of blood chemistry | CPT/HCPCS: 99223; 99232; 99239 ==

== ENCOUNTER 2024-08-04 14:33 | Outpatient (REF) | payer MEDICARE, MEDICAID, SELFPAY ==
--- OUTSIDE RECORDS SUMMARY | 2024-08-04 15:15 | XMS_ITS | Encounter Summary ---
Author Organization [facility] Address [address] [place] [address] Care Team Providers Care Rotational Moulding Operator Name Role Phone Jesu Mireles MD Primary Care Provider +1- [phone] Encounter Details Date Type Department Care Team (Late st Contact Info) Description 07/07/2024 Lab Requisition [facility] - Main Lab [address] [place] [address] Jesu Mireles MD [address] [place], [place] [phone] Repeated falls; Urinary tract infection, site not [...] LAB CHEMISTRY METHOD 07/07/2024 10:47 AM EST [facility] Potassium 3.7 3.5 - 5.5 mmol/L LAB CHEMISTRY METHOD 07/07/2024 10:[address] [facility] Chloride 103 96 - 110 mmol/L LAB CHEMISTRY METHOD 07/07/2024 10:[address] [facility] CO2 29 21 - 32 mmol/L LAB CHEMISTRY METHOD 07/07/2024 10:[address] [facility] Anion Gap 8 3 - 11 LAB CHEMISTRY METHOD 07/07/2024 10:[address] [facility] Glucose 98 70 - 100 mg/dL LAB CHEMISTRY METHOD 07/07/2024 10:[address] [facility] BUN 11 5 - 25 mg/dL LAB CHEMISTRY METHOD 07/07/2024 10:[address] [facility] Creatinine 0.59 0.50 - 1.10 mg/dL LAB CHEMISTRY METHOD 07/07/2024 10:[address] [facility] eGFR 97 >=60 mL/min/1. 73m2 LAB CHEMISTRY METHOD 07/07/2024 10:[address] [facility] Comment:Calculation based on the??Chronic Kidney Disease Epidemiology Collaboration (CKD-EPI) equation refit??without adjustment for race. BUN/Creatinine Ratio 18.6 LAB CHEMISTRY METHOD 07/07/2024 10:[address] [facility] Calcium 8.3(L) 8.5 - 10.5 mg/dL LAB CHEMISTRY METHOD 07/07/2024 10:[address] [facility] AST (SGOT) 55(H) 10 - 42 unit/L LAB CHEMISTRY METHOD 07/07/2024 10:[address] [facility] ALT (SGPT) 47 10 - 60 unit/L LAB CHEMISTRY METHOD 07/07/2024 10:[address] [facility] Alkaline Phosphatase 58 42 - 121 unit/L LAB CHEMISTRY METHOD 07/07/2024 10:[address] [facility] Total Protein 5.2(L) 6.0 - 8.0 g/dL LAB CHEMISTRY METHOD 07/07/2024 10:47 AM EST [facility] Albumin 2.4(L) 3.2 - 5.0 g/dL LAB CHEMISTRY METHOD 07/07/2024 10:[address] [facility] Total Bilirubin 0.6 0.0 - 1.4 mg/dL LAB CHEMISTRY METHOD 07/07/2024 10:47 AM EST [facility] Blood Venous blood specimen / Unknown Venipuncture / Unknown 07/07/2024 5:42 AM EST 07/07/2024 9:56 AM EST Jesu Mireles MD LAB BLOOD ORDERABLES Final Result [facility] [address] [place] [address], * (ABNORMAL) Complete blood count (07/07/2024 5:42 AM EST) WBC 9.7 4.8 - 10.8 K/mcL LAB HEMETOLOGY METHOD 07/07/2024 10:[address] [facility] RBC 4.20 3.80 - 4.80 M/mcL LAB HEMETOLOGY METHOD 07/07/2024 10:[address] [facility] Hemoglobin 13.4 11.5 - 16.0 g/dL LAB HEMETOLOGY METHOD 07/07/2024 10:[address] [facility] Hematocrit 40.0 35.0 - 47.0 % LAB HEMETOLOGY METHOD 07/07/2024 10:[address] [facility] MCV 96.4 79.0 - 98.0 FL LAB HEMETOLOGY METHOD 07/07/2024 10:[address] [facility] MCH 32.3(H) 27.0 - 32.0 pcg LAB HEMETOLOGY METHOD 07/07/2024 10:18 AM EST [facility] MCHC 33.5 32.0 - 37.0 g/dL LAB HEMETOLOGY METHOD 07/07/2024 10:[address] [facility] RDW 14.6 11.0 - 15.0 % LAB HEMETOLOGY METHOD 07/07/2024 10:[address] [facility] Platelets 231 130 - 400 K/mcL LAB HEMETOLOGY METHOD 07/07/2024 10:18 AM EST [facility] MPV 9.7 7.0 - 11.0 FL LAB HEMETOLOGY METHOD 07/07/2024 10:[address] [facility] NRBC 0.0 <1.0 % LAB HEMETOLOGY METHOD 07/07/2024 10:[address] [facility] NRBC Absolute 0.00 <0.10 K/mcL LAB HEMETOLOGY METHOD 07/07/2024 10:[address] [facility] Blood Venous blood specimen / Unknown Venipuncture / Unknown 07/07/2024 5:42 AM EST 07/07/2024 9:56 AM EST us Jesu Mireles MD LAB BLOOD ORDERABLES Final Result [facility] [address] [place] [address], documented in this encounter Visit Diagnoses Diagnosis Repeated falls Urinary tract infection, site not specified documented in this encounter Care Teams Rotational Moulding Operator Relationship Specialty Start Date End Date Jesu Mireles MD [address] [place] [id number] PCP - General Internal Medicine 07/07/24 documented as of this encounter
--- OUTSIDE RECORDS SUMMARY | 2024-08-04 15:15 | XMS_ITS | Encounter Summary ---
Author Organization [facility] Address [address] [place] [address] Care Team Providers Care Able Bodied Tankerman Name Role Phone Jesu Mireles MD Primary Care Provider +1- [phone] Encounter Details Date Type Department Care Team (Late st Contact Info) Description 07/23/2024 Lab Requisition [facility] - Main Lab [address] [place] [address] Jesu Mireles MD [address] [place], [place] [phone] Altered mental status, unspecified; Repeated falls Social [...] CHEMISTRY METHOD 07/24/2024 1:51 PM EST [facility] Potassium 3.7 3.5 - 5.5 mmol/L LAB CHEMISTRY METHOD 07/24/2024 1:51 PM [facility] Chloride 110 96 - 110 mmol/L LAB CHEMISTRY METHOD 07/24/2024 1:51 PM [facility] CO2 25 21 - 32 mmol/L LAB CHEMISTRY METHOD 07/24/2024 1:51 PM [facility] Anion Gap 7 3 - 11 LAB CHEMISTRY METHOD 07/24/2024 1:51 PM [facility] Glucose 150(H) 70 - 100 mg/dL LAB CHEMISTRY METHOD 07/24/2024 1:51 PM [facility] BUN 12 5 - 25 mg/dL LAB CHEMISTRY METHOD 07/24/2024 1:51 PM [facility] Creatinine 0.78 0.50 - 1.10 mg/dL LAB CHEMISTRY METHOD 07/24/2024 1:51 PM [facility] eGFR 82 >=60 mL/min/1. 73m2 LAB CHEMISTRY METHOD 07/24/2024 1:51 PM [facility] Comment:Calculation based on the??Chronic Kidney Disease Epidemiology Collaboration (CKD-EPI) equation refit??without adjustment for race. BUN/Creatinine Ratio 15.4 LAB CHEMISTRY METHOD 07/24/2024 1:51 PM [facility] Calcium 8.7 8.5 - 10.5 mg/dL LAB CHEMISTRY METHOD 07/24/2024 1:51 PM [facility] Blood Venous blood specimen / Unknown Venipuncture / Unknown 07/24/2024 9:45 AM EST 07/24/2024 11:12 AM EST us Jesu Mireles MD LAB BLOOD ORDERABLES Final Result [facility] [address] [place] [address], [place] [phone] * (ABNORMAL) Complete blood count (07/24/2024 9:45 AM EST) [facility] WBC 8.6 4.8 - 10.8 K/mcL LAB HEMETOLOGY METHOD 07/24/2024 12:44 PM [facility] RBC 4.40 3.80 - 4.80 M/mcL LAB HEMETOLOGY METHOD 07/24/2024 12:44 PM [facility] Hemoglobin 14.0 11.5 - 16.0 g/dL LAB HEMETOLOGY METHOD 07/24/2024 12:44 PM [facility] Hematocrit 44.0 35.0 - 47.0 % LAB HEMETOLOGY METHOD 07/24/2024 12:44 PM [facility] MCV 100.7(H) 79.0 - 98.0 FL LAB HEMETOLOGY METHOD 07/24/2024 12:44 PM [facility] MCH 32.0 27.0 - 32.0 pcg LAB HEMETOLOGY METHOD 07/24/2024 12:44 PM [facility] MCHC 31.8(L) 32.0 - 37.0 g/dL LAB HEMETOLOGY METHOD 07/24/2024 12:44 PM [facility] RDW 15.7(H) 11.0 - 15.0 % LAB HEMETOLOGY METHOD 07/24/2024 12:44 PM [facility] Platelets 271 130 - 400 K/mcL LAB HEMETOLOGY METHOD 07/24/2024 12:44 PM [facility] MPV 10.4 7.0 - 11.0 FL LAB HEMETOLOGY METHOD 07/24/2024 12:44 PM [facility] NRBC 0.0 <1.0 % LAB HEMETOLOGY METHOD 07/24/2024 12:44 PM [facility] NRBC Absolute 0.00 <0.10 K/mcL LAB HEMETOLOGY METHOD 07/24/2024 12:44 PM EST [facility] Blood Venous blood specimen / Unknown Venipuncture / Unknown 07/24/2024 9:45 AM EST 07/24/2024 11:12 AM EST us Jesu Mireles MD LAB BLOOD ORDERABLES Final Result [facility] [address] [place] [address], documented in this encounter Visit Diagnoses Diagnosis Altered mental status, unspecified Repeated falls documented in this encounter Care Teams Able Bodied Tankerman Relationship Specialty Start Date End Date Jesu Mireles MD [address] [place] [phone] PCP - General Internal Medicine 07/07/24 documented as of this encounter
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
--- OUTSIDE RECORDS SUMMARY | 2024-08-04 15:15 | XMS_ITS | Encounter Summary ---
Author Organization [facility] Address [address] [place] [address] Care Team Providers Care Director Banking Name Role Phone Jesu Mireles MD Primary Care Provider +1- [phone] Encounter Details Date Type Department Care Team (Late st Contact Info) Description 07/08/2024 Lab Requisition [facility] - Main Lab [address] [place] [address] Jesu Mireles MD [address] [place], [place] [phone] Repeated falls; Altered mental status, unspecified Social [...] LAB CHEMISTRY METHOD 07/10/2024 11:35 AM EST [facility] Potassium 3.6 3.5 - 5.5 mmol/L LAB CHEMISTRY METHOD 07/10/2024 11:35 AM [facility] Chloride 109 96 - 110 mmol/L LAB CHEMISTRY METHOD 07/10/2024 11:35 AM [facility] CO2 28 21 - 32 mmol/L LAB CHEMISTRY METHOD 07/10/2024 11:35 AM [facility] Anion Gap 7 3 - 11 LAB CHEMISTRY METHOD 07/10/2024 11:35 AM [facility] Glucose 100 70 - 100 mg/dL LAB CHEMISTRY METHOD 07/10/2024 11:35 AM [facility] BUN 13 5 - 25 mg/dL LAB CHEMISTRY METHOD 07/10/2024 11:35 AM [facility] Creatinine 0.64 0.50 - 1.10 mg/dL LAB CHEMISTRY METHOD 07/10/2024 11:35 AM [facility] eGFR 95 >=60 mL/min/1. 73m2 LAB CHEMISTRY METHOD 07/10/2024 11:35 AM [facility] Comment:Calculation based on the??Chronic Kidney Disease Epidemiology Collaboration (CKD-EPI) equation refit??without adjustment for race. BUN/Creatinine Ratio 20.3 LAB CHEMISTRY METHOD 07/10/2024 11:35 AM [facility] Calcium 8.6 8.5 - 10.5 mg/dL LAB CHEMISTRY METHOD 07/10/2024 11:35 AM [facility] Blood Venous blood specimen / Unknown Venipuncture / Unknown 07/10/2024 8:36 AM EST 07/10/2024 10:48 AM EST us Jesu Mireles MD LAB BLOOD ORDERABLES Final Result [facility] [address] [place] [address], * Complete blood count (07/10/2024 8:36 AM EST) [facility] Signature WBC 6.5 4.8 - 10.8 K/mcL LAB HEMETOLOGY METHOD 07/10/2024 11:12 AM [facility] RBC 4.10 3.80 - 4.80 M/mcL LAB HEMETOLOGY METHOD 07/10/2024 11:12 AM [facility] Hemoglobin 13.0 11.5 - 16.0 g/dL LAB HEMETOLOGY METHOD 07/10/2024 11:12 AM [facility] Hematocrit 39.9 35.0 - 47.0 % LAB HEMETOLOGY METHOD 07/10/2024 11:12 AM [facility] MCV 97.6 79.0 - 98.0 FL LAB HEMETOLOGY METHOD 07/10/2024 11:12 AM [facility] MCH 31.8 27.0 - 32.0 pcg LAB HEMETOLOGY METHOD 07/10/2024 11:12 AM [facility] MCHC 32.6 32.0 - 37.0 g/dL LAB HEMETOLOGY METHOD 07/10/2024 11:12 AM [facility] RDW 14.5 11.0 - 15.0 % LAB HEMETOLOGY METHOD 07/10/2024 11:12 AM [facility] Platelets 324 130 - 400 K/mcL LAB HEMETOLOGY METHOD 07/10/2024 11:12 AM [facility] MPV 9.5 7.0 - 11.0 FL LAB HEMETOLOGY METHOD 07/10/2024 11:12 AM [facility] NRBC 0.0 <1.0 % LAB HEMETOLOGY METHOD 07/10/2024 11:12 AM [facility] NRBC Absolute 0.00 <0.10 K/mcL LAB HEMETOLOGY METHOD 07/10/2024 11:12 AM EST [facility] Blood Venous blood specimen / Unknown Venipuncture / Unknown 07/10/2024 8:36 AM EST 07/10/2024 10:45 AM EST Jesu Mireles MD LAB BLOOD ORDERABLES Final Result [facility] [address] [place] [address], documented in this encounter Visit Diagnoses Diagnosis Repeated falls Altered mental status, unspecified documented in this encounter Care Teams Director Banking Relationship Specialty Start Date End Date Jesu Mireles MD [address] [place] [phone] PCP - General Internal Medicine 07/07/24 documented as of this encounter
--- OUTSIDE RECORDS SUMMARY | 2024-08-04 15:15 | XMS_ITS | Encounter Summary ---
Author Organization [facility] Address [address] [place] [address] Care Team Providers Care River Pilot Name Role Phone Jesu Mireles MD Primary Care Provider +1- [phone] Encounter Details Date Type Department Care Team (Late st Contact Info) Description 07/30/2024 Lab Requisition [facility] - Main Lab [address] [facility] [place] [address] Jesu Mireles MD [address] [place] [address] Altered mental status, unspecified; Repeated falls Social [...] falls documented in this encounter Care Teams River Pilot Relationship Specialty Start Date End Date Jesu Mireles MD [address] [place] [address] PCP - General Internal Medicine 07/07/24 documented as of this encounter
--- OUTSIDE RECORDS SUMMARY | 2024-08-04 15:15 | XMS_ITS | Encounter Summary ---
Author Organization [facility] Address [address] [place] [address] Care Team Providers Care Senior Hardware Design Engineer Name Role Phone Jesu Mireles MD Primary Care Provider [phone] Encounter Details Date Type Department Care Team (Late st Contact Info) Description 07/15/2024 Lab Requisition [facility] - Main Lab [address] [place] [address] Jesu Mireles MD [address] [place], [place] [id number] Repeated falls; Altered mental status, unspecified Social [...] LAB CHEMISTRY METHOD 07/17/2024 3:27 PM EST [facility] Potassium 3.6 3.5 - 5.5 mmol/L LAB CHEMISTRY METHOD 07/17/2024 3:27 PM [facility] Chloride 110 96 - 110 mmol/L LAB CHEMISTRY METHOD 07/17/2024 3:27 PM [facility] CO2 25 21 - 32 mmol/L LAB CHEMISTRY METHOD 07/17/2024 3:27 PM [facility] Anion Gap 8 3 - 11 LAB CHEMISTRY METHOD 07/17/2024 3:27 PM [facility] Glucose 76 70 - 100 mg/dL LAB CHEMISTRY METHOD 07/17/2024 3:27 PM [facility] BUN 17 5 - 25 mg/dL LAB CHEMISTRY METHOD 07/17/2024 3:27 PM [facility] Creatinine 0.72 0.50 - 1.10 mg/dL LAB CHEMISTRY METHOD 07/17/2024 3:27 PM [facility] LAB eGFR 90 >=60 mL/min/1. 73m2 LAB CHEMISTRY METHOD 07/17/2024 3:27 PM [facility] LAB Comment:Calculation based on the??Chronic Kidney Disease Epidemiology Collaboration (CKD-EPI) equation refit??without adjustment for race. BUN/Creatinine Ratio 23.6 LAB CHEMISTRY METHOD 07/17/2024 3:27 PM [facility] Calcium 9.1 8.5 - 10.5 mg/dL LAB CHEMISTRY METHOD 07/17/2024 3:27 PM [facility] Blood Venous blood specimen / Unknown Venipuncture / Unknown 07/17/2024 8:25 AM EST 07/17/2024 11:55 AM EST us Jesu Mireles MD LAB BLOOD ORDERABLES Final Result [facility] [address] [place] [address], * (ABNORMAL) Complete blood count (07/17/2024 8:25 AM EST) [facility] WBC 11.5(H) 4.8 - 10.8 K/mcL LAB HEMETOLOGY METHOD 07/17/2024 1:31 PM [facility] RBC 4.30 3.80 - 4.80 M/mcL LAB HEMETOLOGY METHOD 07/17/2024 1:31 PM [facility] Hemoglobin 13.7 11.5 - 16.0 g/dL LAB HEMETOLOGY METHOD 07/17/2024 1:31 PM [facility] Hematocrit 41.6 35.0 - 47.0 % LAB HEMETOLOGY METHOD 07/17/2024 1:31 PM [facility] MCV 97.0 79.0 - 98.0 FL LAB HEMETOLOGY METHOD 07/17/2024 1:31 PM [facility] MCH 31.9 27.0 - 32.0 pcg LAB HEMETOLOGY METHOD 07/17/2024 1:31 PM [facility] MCHC 32.9 32.0 - 37.0 g/dL LAB HEMETOLOGY METHOD 07/17/2024 1:31 PM [facility] RDW 15.6(H) 11.0 - 15.0 % LAB HEMETOLOGY METHOD 07/17/2024 1:31 PM [facility] Platelets 399 130 - 400 K/mcL LAB HEMETOLOGY METHOD 07/17/2024 1:31 PM [facility] MPV 9.7 7.0 - 11.0 FL LAB HEMETOLOGY METHOD 07/17/2024 1:31 PM [facility] NRBC 0.0 <1.0 % LAB HEMETOLOGY METHOD 07/17/2024 1:31 PM [facility] LAB NRBC Absolute 0.00 <0.10 K/mcL LAB HEMETOLOGY METHOD 07/17/2024 1:31 PM EST [facility] Blood Venous blood specimen / Unknown Venipuncture / Unknown 07/17/2024 8:25 AM EST 07/17/2024 11:55 AM EST us Jesu Mireles MD LAB BLOOD ORDERABLES Final Result [facility] [address] [place] [address], documented in this encounter Visit Diagnoses Diagnosis Repeated falls Altered mental status, unspecified documented in this encounter Care Teams Senior Hardware Design Engineer Relationship Specialty Start Date End Date Jesu Mireles MD [address] [place] [id number] PCP - General Internal Medicine 07/07/24 documented as of this encounter
[2024-08-04 16:41] LABS: MANUAL DIFF FLAG NO
[2024-08-04 16:52] LABS: Basophils Percent Auto 0.4 % (0-2); Eosinophils Absolute Auto 0.2 X10*3/uL (0.0-0.4); Eosinophils Percent Auto 2.4 % (0-4); Hematocrit 48.8 % (37.0-47.0); Hemoglobin 15.9 g/dl (12.0-16.0); Imm Gran Abs Auto 0.05 X10*3/uL (0.00-0.03); Imm Gran Pct Auto 0.5 % (0.0-0.4); Lymphocytes Absolute Auto 2.5 X10*3/uL (1.2-4.9); Lymphocytes Percent Auto 24.6 % (20-40); Mean Corpuscular HGB Conc 32.6 g/dl (31.0-35.0); Mean Corpuscular Hemoglobin 32.3 pg (27.0-33.0); Mean Corpuscular Volume 99.2 fL (80.0-98.0); Mean Platelet Volume 10.2 fL (9.4-12.3); Monocytes Absolute Auto 0.6 X10*3/uL (0.1-1.2); Monocytes Percent Auto 6.2 % (2-11); Neutrophils Absolute Auto 6.6 x10*3/uL (2.0-8.3); Neutrophils Percent Auto 65.9 % (45-73); Platelet Count 232 X10*3/uL (160-400); Red Blood Count 4.92 X10*6/uL (4.20-5.50); Red Cell Distribution Width 15.2 % (11.0-16.0)
[2024-08-04 17:26] LABS: Alanine Aminotransferase 31 U/L (0-31); Albumin Level 3.9 g/dL (3.5-5.0); Alkaline Phosphatase 68 U/L (39-117); Anion Gap 14 (12-20); Aspartate Amino Transferase 39 U/L (5-31); Bilirubin Total 0.6 mg/dL (0.0-1.0); Blood Urea Nitrogen 20 mg/dL (9-16); Calcium 10.2 mg/dL (8.4-10.2); Carbon Dioxide 22 mmol/L (22-29); Chloride 111 mmol/L (96-108); Estimated Glomerular Filt Rate > 60; Glucose Random 150 mg/dL (60-115); Potassium 4.2 mmol/L (3.3-5.1); Sodium 143 mmol/L (135-145); Total Protein 7.1 g/dL (6.5-8.0)
== END 2024-08-04 14:34 | disposition home or self-care (01) ==
LOC: HO.HMGCLDS 14:33
PROVIDERS: PCP Internal Medicine; Visit Provider Internal Medicine
DX: I10 Essential (primary) hypertension (principal); N39.0 Urinary tract infection, site not specified; R73.03 Prediabetes; E78.9 Disorder of lipoprotein metabolism, unspecified; Z86.73 Personal history of transient ischemic attack (TIA), and cerebral infarction without residual deficits; F41.1 Generalized anxiety disorder; G47.9 Sleep disorder, unspecified; R10.13 Epigastric pain; R74.8 Abnormal levels of other serum enzymes; Z09 Encounter for follow-up examination after completed treatment for conditions other than malignant neoplasm; R55 Syncope and collapse; J44.9 Chronic obstructive pulmonary disease, unspecified
CPT/HCPCS: 36415; 80053; 82550; 85025; 99212

== ENCOUNTER 2024-08-04 14:33 | Outpatient (AMB) | payer MEDICARE, MEDICAID, SELFPAY ==
[2024-08-04 14:35] VITALS: BP 148/82; PULSE 72; O2SAT 97; BMI 33.1
--- NOTE | 2024-08-04 14:35 | A.OFFPC_ITS ---
Vital Signs 08/04/24 14:35 Height 5 ft 2 in Weight 181 lb 4 oz BMI 33.1 BP 148/82 H Blood Pressure Location Rt brachial Position Sitting Pulse 72 Pulse Source Pulse Oximeter Pulse Oximetry (%) 97 Oxygen Delivery Method Room Air Intake Visit Reasons: Htn, copd Allergies tetracycline Allergy (Unknown, Verified 08/04/24 14:36) rash Medication List - Last Reconciled 08/04/24 by Corwin Samson MD albuterol sulfate 90 mcg/actuation 2 inhalations inhalation QID PRN aspirin 1 tab PO DAILY 90 days atorvastatin 80 mg PO DAILY 90 days [Bp Monitor As directed] clopidogrel 75 mg PO DAILY commode (bedside commode) As directed duloxetine 30 mg PO DAILY lisinopril 20 mg PO DAILY 90 days losartan 25 mg PO DAILY meclizine 25 mg PO DAILY PRN metoprolol tartrate 50 mg PO BID omeprazole 20 mg PO DAILY@0630 walker wheeled walker with seat and brakes Tobacco use date assessed: 08/04/24 Fall risk assessment: No Falls in past year Last assessed Fall Risk: 08/04/24 Dental Screening Dental Screen Date: 06/21/24 HPI Htn, copd HPI Details Patient is 69-year-old female who was seen [facility] of j[facility] secondary to fall she was admitted and was discharged on 07/06/2024 Patient has a history of CVA with speech deficit as per her daughter, COPD, hypertension, lipid disorder, GERD Patient went to the mom and found her on the ground she verbalize that she believes day prior to arrival to emergency room daughter also noticed some confusion more than her baseline confusion In emergency room patient was found to have a UTI her CPKs were very high She was given fluids, normal renal functions, leukocytosis elevated lactic acid She was treated with antibiotics EKG showed ST depression in lead V4 V5 and V6 with negative drops. Patient had no chest pain or shortness a breath CT scan of spine negative CT scan of head showed no definite acute intracranial process Patient was admitted in hospital in telemetry unit Patient did not had any acute dysrhythmias Total seek is responded well to hydration, creatinine remained stable Urine grew E coli which was sensitive to ceftriaxone Patient received 4 days of IV ceftriaxone and then switched to Ceftin before discharge She just got discharged last Wednesday from a rehab center There are some changes in her medication, she was started on losartan rather than lisinopril currently taking 25 mg I am increasing the dose to 50 as blood pressure is elevated Repeated labs are needed that patient will have them done today - Historically diagnosed with COPD, she found relief using a nebulizer provided during recent hospitalization. Her past smoking history is significant for lengthy high pack years, contributing to respiratory issues. Patient is requesting script for [employer] machine we will address that - Current prescriptions include atorvast atin, losartan, clopidogrel, duloxetine, metoprolol, and meclizine. Patient Instructions - Take prescribed blood pressure medicat ion as instructed; ensure it is taken once daily. - Undergo blood work and urine test next door to update labs and assess kidney function. - Obtain and use a nebulizer at home as directed, especially due to COPD history. - Arrange transportation with approved s ervices or insurance for future visits or tests. - Report any changes in symptoms or adve rse reactions to medications promptly. Review of Systems - General: No fever no chills - Neurological: No headaches no dizziness - Ear nose throat: No sore throat no hearing difficulty no ear pain - Cardiovascular: No syncope, no chest pain, no palpitations - Gastrointestinal: No nausea vomiting or diarrhea - Endocrine: No polyuria polydipsia no heat intolerance - Genitourinary: No dysuria , no blood in urine Physical Exam General: No acute distress HEENT: No acute findings Neck: Supple Respiratory system: Able to talk in full sentences, no audible wheeze cardiovascular: S1-S2 regular in rate and rhythm, blood pressure is kind of high today Gastrointestinal: No pain Extremities: No new findings [employer]: Alert awake oriented x3 motor sensory intact Skin: Normal turgor [facility] Medical History Lipid disorder Hypertension, essential Anxiety, generalized History of stroke Difficulty sleeping Dyspepsia Tobacco abuse Surgical History No pertinent past surgical history Family History Father No problems noted. Mother No problems noted. Brother No problems noted. Son No problems noted. Daughter No problems noted. Sister No problems noted. Sister No problems noted. Other Mental health disorder Substance use disorder Social History Household Members: Children Housing: Apartment Do you presently have visiting nurse or other home services: No Alcohol intake: former Year quit: 2019 Patient Tobacco Use Status: Former Tobacco user Cigarette Packs Per Day: 0.5 e-Cigarette/Vaping Use: Never Used service: No Current occupational status: retired Cognitive needs: No Hearing needs: No Vision needs: No Questionnaire Thrive Questionnaire Date Thrive assessed: 06/21/24 I am a: Patient What is your living situation today?: I choose not to answer this question Within the past 12 months, did the food you bought not last and you didn't have the money to get more?: I choose not to answer this question Within the past 12 months, did you worry whether your food would run out before you got money to buy more?: I choose not to answer this question Do you have trouble paying for medicines?: I choose not to answer this question Do you have trouble getting transportation to medical appointments?: I choose not to answer this question Do you have trouble paying your heating and electricity bill?: I choose not to answer this question Do you have trouble taking care of your child, family member or friend?: I choose not to answer this question Do you have trouble with day-to-day activities such as bathing, preparing meals, shopping, managing finances, etc.?: I choose not to answer this question Are you currently unemployed and looking for a job?: I choose not to answer this question Are you interested in more education?: I choose not to answer this question Please select the resources that you would like help with: None Currently or been in a relationship where the following occur: I choose not to answer THRIVE Score: 0 DAYANA-7 AMB Questionnaire DAYANA-7 Date DAYANA - 7 assessed: 06/21/24 Source: Developed by Drs. Joe Sanches, Breann Lee, Byron Garza and colleagues, with an educational jah from [employer]. Physical exam (Primary Care) Vital Signs: Last Vital Signs Pulse 72 08/04/24 14:35 BP 148/82 H 08/04/24 14:35 Pulse Ox 97 08/04/24 14:35 Oxygen Delivery Method Room Air 08/04/24 14:35 BMI result Body Mass Index 33.1 Tobacco/Smoking Status: Tobacco use Status Tobacco use date assessed 08/04/24 08/04/24 14:49 Patient Tobacco Use Status Former Tobacco user 08/04/24 14:49 e-Cigarette/Vaping Use Never Used 08/04/24 14:49 Thrive Assessment: Date of Thrive Assessment Date Thrive assessed 06/21/24 08/04/24 14:49 Currently or been in a relationship where the following occur: I choose not to answer Coding Level of Care Code Est Pt Level 5 (71059) Diagnoses Hospital discharge follow-up Z09 Syncope, unspecified syncope type R55 Syncope type: unspecified Urinary tract infection without hematuria, site unspecified N39.0 Urinary tract infection type: site unspecified Hematuria presence: without hematuria Hypertension, essential I10 Anxiety, generalized F41.1 Lipid disorder E78.9 Difficulty sleeping G47.9 Dyspepsia R10.13 History of stroke Z86.73 Pre-diabetes R73.03 Elevated CPK R74.8 Chronic obstructive pulmonary disease, unspecified COPD type J44.9 COPD type: unspecified COPD Assessment & Plan Assessment & Plan (1) Hospital discharge follow-up: Code(s): Z09 - Encounter for follow-up examination after completed treatment for conditions other than malignant neoplasm Category: Medical (2) Syncope: Code(s): R55 - Syncope and collapse Category: Medical Qualifiers: Syncope type: unspecified Qualified Code(s): R55 - Syncope and collapse (3) Urinary tract infection: Code(s): N39.0 - Urinary tract infection, site not specified Category: Medical Qualifiers: Urinary tract infection type: site unspecified Hematuria presence: without hematuria Qualified Code(s): N39.0 - Urinary tract infection, site not specified (4) Hypertension, essential: Code(s): I10 - Essential (primary) hypertension Category: Medical (5) Anxiety, generalized: Code(s): F41.1 - Generalized anxiety disorder Category: Medical (6) Lipid disorder: Code(s): E78.9 - Disorder of lipoprotein metabolism, unspecified Category: Medical (7) Difficulty sleeping: Code(s): G47.9 - Sleep disorder, unspecified Category: Medical (8) Dyspepsia: Code(s): R10.13 - Epigastric pain Category: Medical (9) History of stroke: Code(s): Z86.73 - Personal history of transient ischemic attack (TIA), and cerebral infarction without residual deficits Category: Medical (10) Pre-diabetes: Code(s): R73.03 - Prediabetes Category: Medical (11) Elevated CPK: Code(s): R74.8 - Abnormal levels of other serum enzymes Category: Medical (12) COPD (chronic obstructive pulmonary disease): Comment: Long history of smoking in the past Code(s): J44.9 - Chronic obstructive pulmonary disease, unspecified Category: Medical Qualifiers: COPD type: unspecified COPD Qualified Code(s): J44.9 - Chronic obstructive pulmonary disease, unspecified Plan Patient is 69-year-old female who was seen [facility] June secondary to fall she was admitted and was discharged on 07/06/2024 Patient has a history of CVA with speech deficit as per her daughter, COPD, hypertension, lipid disorder, GERD Patient went to the mom and found her on the ground she verbalize that she believes day prior to arrival to emergency room daughter also noticed some confusion more than her baseline confusion In emergency room patient was found to have a UTI her CPKs were very high She was given fluids, normal renal functions, leukocytosis elevated lactic acid She was treated with antibiotics EKG showed ST depression in lead V4 V5 and V6 with negative drops. Patient had no chest pain or shortness a breath CT scan of spine negative CT scan of head showed no definite acute intracranial process Patient was admitted in hospital in telemetry unit Patient did not had any acute dysrhythmias Total seek is responded well to hydration, creatinine remained stable Urine grew E coli which was sensitive to ceftriaxone Patient received 4 days of IV ceftriaxone and then switched to Ceftin before discharge She just got discharged last Wednesday from a rehab center There are some changes in her medication, she was started on losartan rather than lisinopril currently taking 25 mg I am increasing the dose to 50 as blood pressure is elevated Repeated labs are needed that patient will have them done today - Historically diagnosed with COPD, she found relief using a nebulizer provided during recent hospitalization. Her past smoking history is significant for lengthy high pack years, contributing to respiratory issues. Patient is requesting script for [employer] machine we will address that - Current prescriptions include atorvastatin, losartan, clopidogrel, duloxetine, metoprolol, and meclizine. Patient Instructions - Take prescribed blood pressure medication as instructed; ensure it is taken once daily. - Undergo blood work and urine test next door to update labs and assess kidney function. - Obtain and use a nebulizer at home as directed, especially due to COPD history. - Arrange transportation with approved services or insurance for future visits or tests. - Report any changes in symptoms or adverse reactions to medications promptly. 40 minutes spent in care of this patient Orders: Orders Complete Blood Count Auto Diff Today E78.9 - Disorder of lipoprotein metabolism, unspecified, F41.1 - Generalized anxiety disorder, G47.9 - Sleep disorder, unspecified, I10 - Essential (primary) hypertension, N39.0 - Urinary tract infection, site not specified, R10.13 - Epigastric pain, R73.03 - Prediabetes, R74.8 - Abnormal levels of other serum enzymes, Z86.73 - Personal history of transient ischemic attack (TIA), and cerebral infarction without residual deficits Creatine Kinase Total Today E78.9 - Disorder of lipoprotein metabolism, unspecified, F41.1 - Generalized anxiety disorder, G47.9 - Sleep disorder, unspecified, I10 - Essential (primary) hypertension, N39.0 - Urinary tract infection, site not specified, R10.13 - Epigastric pain, R73.03 - Prediabetes, R74.8 - Abnormal levels of other serum enzymes, Z86.73 - Personal history of transient ischemic attack (TIA), and cerebral infarction without residual deficits Comprehensive Met. Panel Today E78.9 - Disorder of lipoprotein metabolism, unspecified, F41.1 - Generalized anxiety disorder, G47.9 - Sleep disorder, unspecified, I10 - Essential (primary) hypertension, N39.0 - Urinary tract infection, site not specified, R10.13 - Epigastric pain, R73.03 - Prediabetes, R74.8 - Abnormal levels of other serum enzymes, Z86.73 - Personal history of transient ischemic attack (TIA), and cerebral infarction without residual deficits UA CC w/rflx Micro + Cult Today E78.9 - Disorder of lipoprotein metabolism, unspecified, F41.1 - Generalized anxiety disorder, G47.9 - Sleep disorder, unspecified, I10 - Essential (primary) hypertension, N39.0 - Urinary tract infection, site not specified, R10.13 - Epigastric pain, R73.03 - Prediabetes, R74.8 - Abnormal levels of other serum enzymes, Z86.73 - Personal history of transient ischemic attack (TIA), and cerebral infarction without residual deficits Medications: New losartan 50 mg PO DAILY 90 tabs 0RF Discontinued lisinopril Discontinued Reason: Doctor's Order 20 mg PO DAILY 90 days 90 tabs 0RF
--- OUTSIDE RECORDS SUMMARY | 2024-08-04 14:53 | XMS_ITS | Encounter Summary ---
Author Organization [facility] Address [address] [place] [address] Care Team Providers Care Bilingual Administrative Assistant Name Role Phone Jesu Mireles MD Primary Care Provider +1- [phone] Encounter Details Date Type Department Care Team (Late st Contact Info) Description 07/08/2024 Lab Requisition [facility] - Main Lab [address] [place] [address] Jesu Mireles MD [address] [place], [place] [id number] Repeated falls; Altered mental status, unspecified Social History Tobacco Use Types Packs/Day Years Used Date Smoking Tobacco: Every Day Cigarettes Smokeless Tobacco: Never Alcohol Use Standard Drinks/Week Comments No 0 (1 standard drink = 0.6 oz pur e alcohol) Comments Unknown Sex and Gender Information Value Date Recorded Sex Assigned at Not on file Legal Sex Female 7:15 AM EST Gender Identity Not on file Sexual Orientation Not on file documented as of this encounter Plan of Treatment Not on file documented as of this encounter Procedures Procedure Name Priority Date/Time Associated Diagnosis Comments COMPLETE BLOOD COUNT Routine 07/10/2024 8:36 AM EST Repeated falls Altered mental status, unspecified BASIC METABOLIC PANEL Routine 07/10/2024 8:36 AM EST Repeated falls Altered mental status, unspecified documented in this encounter Results * Basic metabolic panel (07/10/2024 8:36 AM EST) Sodium 144 133 - 145 mmol/L LAB CHEMISTRY METHOD 07/10/2024 11:35 AM EST [facility] Potassium 3.6 3.5 - 5.5 mmol/L LAB CHEMISTRY METHOD 07/10/2024 11:35 AM [facility] Chloride 109 96 - 110 mmol/L LAB CHEMISTRY METHOD 07/10/2024 11:35 AM [facility] CO2 28 21 - 32 mmol/L LAB CHEMISTRY METHOD 07/10/2024 11:35 AM [facility] Anion Gap 7 3 - 11 LAB CHEMISTRY METHOD 07/10/2024 11:35 AM [facility] Glucose 100 70 - 100 mg/dL LAB CHEMISTRY METHOD 07/10/2024 11:35 AM [facility] BUN 13 5 - 25 mg/dL LAB CHEMISTRY METHOD 07/10/2024 11:35 AM [facility] Creatinine 0.64 0.50 - 1.10 mg/dL LAB CHEMISTRY METHOD 07/10/2024 11:35 AM [facility] LAB eGFR 95 >=60 mL/min/1. 73m2 LAB CHEMISTRY METHOD 07/10/2024 11:35 AM [facility] LAB Comment:Calculation based on the??Chronic Kidney Disease Epidemiology Collaboration (CKD-EPI) equation refit??without adjustment for race. BUN/Creatinine Ratio 20.3 LAB CHEMISTRY METHOD 07/10/2024 11:35 AM [facility] Calcium 8.6 8.5 - 10.5 mg/dL LAB CHEMISTRY METHOD 07/10/2024 11:35 AM [facility] LAB Blood Venous blood specimen / Unknown Venipuncture / Unknown 07/10/2024 8:36 AM EST 07/10/2024 10:48 AM EST us Jesu Mireles MD LAB BLOOD ORDERABLES Final Result [facility] [address] [place] [address], * Complete blood count (07/10/2024 8:36 AM EST) [facility] Signature WBC 6.5 4.8 - 10.8 K/mcL LAB HEMETOLOGY METHOD 07/10/2024 11:12 AM [facility] RBC 4.10 3.80 - 4.80 M/mcL LAB HEMETOLOGY METHOD 07/10/2024 11:12 AM [facility] Hemoglobin 13.0 11.5 - 16.0 g/dL LAB HEMETOLOGY METHOD 07/10/2024 11:12 AM [facility] LAB Hematocrit 39.9 35.0 - 47.0 % LAB HEMETOLOGY METHOD 07/10/2024 11:12 AM [facility] LAB MCV 97.6 79.0 - 98.0 FL LAB HEMETOLOGY METHOD 07/10/2024 11:12 AM [facility] MCH 31.8 27.0 - 32.0 pcg LAB HEMETOLOGY METHOD 07/10/2024 11:12 AM [facility] LAB MCHC 32.6 32.0 - 37.0 g/dL LAB HEMETOLOGY METHOD 07/10/2024 11:12 AM [facility] LAB RDW 14.5 11.0 - 15.0 % LAB HEMETOLOGY METHOD 07/10/2024 11:12 AM [facility] LAB Platelets 324 130 - 400 K/mcL LAB HEMETOLOGY METHOD 07/10/2024 11:12 AM [facility] MPV 9.5 7.0 - 11.0 FL LAB HEMETOLOGY METHOD 07/10/2024 11:12 AM [facility] LAB NRBC 0.0 <1.0 % LAB HEMETOLOGY METHOD 07/10/2024 11:12 AM [facility] LAB NRBC Absolute 0.00 <0.10 K/mcL LAB HEMETOLOGY METHOD 07/10/2024 11:12 AM EST [facility] Blood Venous blood specimen / Unknown Venipuncture / Unknown 07/10/2024 8:36 AM EST 07/10/2024 10:45 AM EST Jesu Mireles MD LAB BLOOD ORDERABLES Final Result [facility] [address] [place] [address], documented in this encounter Visit Diagnoses Diagnosis Repeated falls Altered mental status, unspecified documented in this encounter Care Teams Bilingual Administrative Assistant Relationship Specialty Start Date End Date Jesu Mireles MD [address] [place] [id number] PCP - General Internal Medicine 07/07/24 documented as of this encounter
--- OUTSIDE RECORDS SUMMARY | 2024-08-04 14:53 | XMS_ITS | Encounter Summary ---
Author Organization [facility] Address [address] [place] [address] Care Team Providers Care Embossing Tool Setter Name Role Phone Jesu Mireles MD Primary Care Provider +1- [phone] Encounter Details Date Type Department Care Team (Late st Contact Info) Description 07/30/2024 Lab Requisition [facility] - Main Lab [address] [facility] [place] [address] Jesu Mireles MD [address] [place] [address] Altered mental status, unspecified; Repeated falls Social History Tobacco Use Types Packs/Day Years [...] on file documented as of this encounter Visit Diagnoses Diagnosis Altered mental status, unspecified Repeated falls documented in this encounter Care Teams Embossing Tool Setter Relationship Specialty Start Date End Date Jesu Mireles MD [address] [place] [address] PCP - General Internal Medicine 07/07/24 documented as of this encounter
--- OUTSIDE RECORDS SUMMARY | 2024-08-04 14:53 | XMS_ITS | Encounter Summary ---
Author Organization [facility] Address [address] [place] [address] Care Team Providers Care Oracle Ebs Developer Name Role Phone Jesu Mireles MD Primary Care Provider +1- [phone] Encounter Details Date Type Department Care Team (Late st Contact Info) Description 07/23/2024 Lab Requisition [facility] - Main Lab [address] [place] [address] Jesu Mireles MD [address] [place], [place] [phone] Altered mental status, unspecified; Repeated falls Social [...] Associated Diagnosis Comments COMPLETE BLOOD COUNT Routine 07/24/2024 9:45 AM EST Altered mental status, unspecified Repeated falls BASIC METABOLIC PANEL Routine 07/24/2024 9:45 AM EST Altered mental status, unspecified Repeated falls documented in this encounter Results * (ABNORMAL) Basic metabolic panel (07/24/2024 9:45 AM EST) Sodium 142 133 - 145 mmol/L LAB CHEMISTRY METHOD 07/24/2024 1:51 PM EST [facility] Potassium 3.7 3.5 - 5.5 mmol/L LAB CHEMISTRY METHOD 07/24/2024 1:[address] [facility] Chloride 110 96 - 110 mmol/L LAB CHEMISTRY METHOD 07/24/2024 1:[address] [facility] CO2 25 21 - 32 mmol/L LAB CHEMISTRY METHOD 07/24/2024 1:[address] [facility] Anion Gap 7 3 - 11 LAB CHEMISTRY METHOD 07/24/2024 1:[address] [facility] Glucose 150(H) 70 - 100 mg/dL LAB CHEMISTRY METHOD 07/24/2024 1:[address] [facility] BUN 12 5 - 25 mg/dL LAB CHEMISTRY METHOD 07/24/2024 1:[address] [facility] Creatinine 0.78 0.50 - 1.10 mg/dL LAB CHEMISTRY METHOD 07/24/2024 1:[address] [facility] eGFR 82 >=60 mL/min/1. 73m2 LAB CHEMISTRY METHOD 07/24/2024 1:[address] [facility] LAB Comment:Calculation based on the??Chronic Kidney Disease Epidemiology Collaboration (CKD-EPI) equation refit??without adjustment for race. BUN/Creatinine Ratio 15.4 LAB CHEMISTRY METHOD 07/24/2024 1:[address] [facility] Calcium 8.7 8.5 - 10.5 mg/dL LAB CHEMISTRY METHOD 07/24/2024 1:[address] [facility] Blood Venous blood specimen / Unknown Venipuncture / Unknown 07/24/2024 9:45 AM EST 07/24/2024 11:12 AM EST us Jesu Mireles MD LAB BLOOD ORDERABLES Final Result [facility] [address] [place] [address], [place] [phone] * (ABNORMAL) Complete blood count (07/24/2024 9:45 AM EST) [facility] WBC 8.6 4.8 - 10.8 K/mcL LAB HEMETOLOGY METHOD 07/24/2024 12:[address] [facility] RBC 4.40 3.80 - 4.80 M/mcL LAB HEMETOLOGY METHOD 07/24/2024 12:[address] [facility] Hemoglobin 14.0 11.5 - 16.0 g/dL LAB HEMETOLOGY METHOD 07/24/2024 12:[address] [facility] Hematocrit 44.0 35.0 - 47.0 % LAB HEMETOLOGY METHOD 07/24/2024 12:[address] [facility] MCV 100.7(H) 79.0 - 98.0 FL LAB HEMETOLOGY METHOD 07/24/2024 12:[address] [facility] MCH 32.0 27.0 - 32.0 pcg LAB HEMETOLOGY METHOD 07/24/2024 12:[address] [facility] MCHC 31.8(L) 32.0 - 37.0 g/dL LAB HEMETOLOGY METHOD 07/24/2024 12:[address] [facility] RDW 15.7(H) 11.0 - 15.0 % LAB HEMETOLOGY METHOD 07/24/2024 12:[address] [facility] Platelets 271 130 - 400 K/mcL LAB HEMETOLOGY METHOD 07/24/2024 12:[address] [facility] MPV 10.4 7.0 - 11.0 FL LAB HEMETOLOGY METHOD 07/24/2024 12:[address] [facility] NRBC 0.0 <1.0 % LAB HEMETOLOGY METHOD 07/24/2024 12:[address] [facility] NRBC Absolute 0.00 <0.10 K/mcL LAB HEMETOLOGY METHOD 07/24/2024 12:44 PM EST [facility] Blood Venous blood specimen / Unknown Venipuncture / Unknown 07/24/2024 9:45 AM EST 07/24/2024 11:12 AM EST us Jesu Mireles MD LAB BLOOD ORDERABLES Final Result [facility] [address] [place] [address], documented in this encounter Visit Diagnoses Diagnosis Altered mental status, unspecified Repeated falls documented in this encounter Care Teams Oracle Ebs Developer Relationship Specialty Start Date End Date Jesu Mireles MD [address] [place] [phone] PCP - General Internal Medicine 07/07/24 documented as of this encounter
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
--- OUTSIDE RECORDS SUMMARY | 2024-08-04 14:54 | XMS_ITS | Encounter Summary ---
Author Organization [facility] Address [address] [place] [address] Care Team Providers Care Tree Worker Name Role Phone Jesu Mireles MD Primary Care Provider +1- [phone] Encounter Details Date Type Department Care Team (Late st Contact Info) Description 07/07/2024 Lab Requisition [facility] Lab [address] [place] [address] Jesu Mireles MD [address] [place], [place] [phone] Repeated falls; Urinary tract infection, site not specified Social History Tobacco Use Types Packs/Day Years [...] Associated Diagnosis Comments COMPLETE BLOOD COUNT Routine 07/07/2024 5:42 AM EST Repeated falls Urinary tract infection, site not specified COMPREHENSIVE METABOLIC PANEL Routine 07/07/2024 5:42 AM EST Repeated falls Urinary tract infection, site not specified documented in this encounter Results * (ABNORMAL) Comprehensive metabolic panel (07/07/2024 5:42 AM EST) Sodium 140 133 - 145 mmol/L LAB CHEMISTRY METHOD 07/07/2024 10:47 AM EST [facility] Potassium 3.7 3.5 - 5.5 mmol/L LAB CHEMISTRY METHOD 07/07/2024 10:47 AM [facility] Chloride 103 96 - 110 mmol/L LAB CHEMISTRY METHOD 07/07/2024 10:47 AM [facility] CO2 29 21 - 32 mmol/L LAB CHEMISTRY METHOD 07/07/2024 10:47 AM [facility] Anion Gap 8 3 - 11 LAB CHEMISTRY METHOD 07/07/2024 10:47 AM [facility] Glucose 98 70 - 100 mg/dL LAB CHEMISTRY METHOD 07/07/2024 10:47 AM [facility] BUN 11 5 - 25 mg/dL LAB CHEMISTRY METHOD 07/07/2024 10:47 AM [facility] Creatinine 0.59 0.50 - 1.10 mg/dL LAB CHEMISTRY METHOD 07/07/2024 10:47 AM [facility] eGFR 97 >=60 mL/min/1. 73m2 LAB CHEMISTRY METHOD 07/07/2024 10:47 AM [facility] Comment:Calculation based on the??Chronic Kidney Disease Epidemiology Collaboration (CKD-EPI) equation refit??without adjustment for race. BUN/Creatinine Ratio 18.6 LAB CHEMISTRY METHOD 07/07/2024 10:47 AM [facility] Calcium 8.3(L) 8.5 - 10.5 mg/dL LAB CHEMISTRY METHOD 07/07/2024 10:47 AM [facility] AST (SGOT) 55(H) 10 - 42 unit/L LAB CHEMISTRY METHOD 07/07/2024 10:47 AM [facility] ALT (SGPT) 47 10 - 60 unit/L LAB CHEMISTRY METHOD 07/07/2024 10:47 AM [facility] Alkaline Phosphatase 58 42 - 121 unit/L LAB CHEMISTRY METHOD 07/07/2024 10:47 AM [facility] Total Protein 5.2(L) 6.0 - 8.0 g/dL LAB CHEMISTRY METHOD 07/07/2024 10:[address] [facility] Albumin 2.4(L) 3.2 - 5.0 g/dL LAB CHEMISTRY METHOD 07/07/2024 10:47 AM [facility] Total Bilirubin 0.6 0.0 - 1.4 mg/dL LAB CHEMISTRY METHOD 07/07/2024 10:[address] [facility] Blood Venous blood specimen / Unknown Venipuncture / Unknown 07/07/2024 5:42 AM EST 07/07/2024 9:56 AM EST Jesu Mireles MD LAB BLOOD ORDERABLES Final Result [facility] [address] [place] [address], * (ABNORMAL) Complete blood count (07/07/2024 5:42 AM EST) WBC 9.7 4.8 - 10.8 K/mcL LAB HEMETOLOGY METHOD 07/07/2024 10:18 AM [facility] RBC 4.20 3.80 - 4.80 M/mcL LAB HEMETOLOGY METHOD 07/07/2024 10:18 AM [facility] Hemoglobin 13.4 11.5 - 16.0 g/dL LAB HEMETOLOGY METHOD 07/07/2024 10:18 AM [facility] Hematocrit 40.0 35.0 - 47.0 % LAB HEMETOLOGY METHOD 07/07/2024 10:18 AM [facility] MCV 96.4 79.0 - 98.0 FL LAB HEMETOLOGY METHOD 07/07/2024 10:18 AM [facility] MCH 32.3(H) 27.0 - 32.0 pcg LAB HEMETOLOGY METHOD 07/07/2024 10:[address] [facility] MCHC 33.5 32.0 - 37.0 g/dL LAB HEMETOLOGY METHOD 07/07/2024 10:18 AM [facility] RDW 14.6 11.0 - 15.0 % LAB HEMETOLOGY METHOD 07/07/2024 10:18 AM [facility] Platelets 231 130 - 400 K/mcL LAB HEMETOLOGY METHOD 07/07/2024 10:[address] [facility] MPV 9.7 7.0 - 11.0 FL LAB HEMETOLOGY METHOD 07/07/2024 10:18 AM [facility] NRBC 0.0 <1.0 % LAB HEMETOLOGY METHOD 07/07/2024 10:18 AM [facility] NRBC Absolute 0.00 <0.10 K/mcL LAB HEMETOLOGY METHOD 07/07/2024 10:18 AM [facility] Blood Venous blood specimen / Unknown Venipuncture / Unknown 07/07/2024 5:42 AM EST 07/07/2024 9:56 AM EST us Jesu Mireles MD LAB BLOOD ORDERABLES Final Result [facility] [address] [place] [address], documented in this encounter Visit Diagnoses Diagnosis Repeated falls Urinary tract infection, site not specified documented in this encounter Care Teams Tree Worker Relationship Specialty Start Date End Date Jesu Mireles MD [address] [place] [id number] PCP - General Internal Medicine 07/07/24 documented as of this encounter
--- OUTSIDE RECORDS SUMMARY | 2024-08-04 14:54 | XMS_ITS | Encounter Summary ---
Author Organization [facility] Address [address] [place] [address] Care Team Providers Care It Infrastructure Specialist Name Role Phone Jesu Mireles MD Primary Care Provider +1- [phone] Encounter Details Date Type Department Care Team (Late st Contact Info) Description 07/15/2024 Lab Requisition [facility] Lab [address] [place] [address] Jesu Mireles MD [address] [place], [place] [phone] Repeated falls; Altered mental status, unspecified Social [...] Associated Diagnosis Comments COMPLETE BLOOD COUNT Routine 07/17/2024 8:25 AM EST Repeated falls Altered mental status, unspecified BASIC METABOLIC PANEL Routine 07/17/2024 8:25 AM EST Repeated falls Altered mental status, unspecified documented in this encounter Results * Basic metabolic panel (07/17/2024 8:25 AM EST) Sodium 143 133 - 145 mmol/L LAB CHEMISTRY METHOD 07/17/2024 3:27 PM EST [facility] Potassium 3.6 3.5 - 5.5 mmol/L LAB CHEMISTRY METHOD 07/17/2024 3:27 PM [facility] Chloride 110 96 - 110 mmol/L LAB CHEMISTRY METHOD 07/17/2024 3:27 PM [facility] CO2 25 21 - 32 mmol/L LAB CHEMISTRY METHOD 07/17/2024 3:27 PM [facility] Anion Gap 8 3 - 11 LAB CHEMISTRY METHOD 07/17/2024 3:27 PM [facility] Glucose 76 70 - 100 mg/dL LAB CHEMISTRY METHOD 07/17/2024 3:27 PM [facility] BUN 17 5 - 25 mg/dL LAB CHEMISTRY METHOD 07/17/2024 3:27 PM [facility] Creatinine 0.72 0.50 - 1.10 mg/dL LAB CHEMISTRY METHOD 07/17/2024 3:27 PM [facility] eGFR 90 >=60 mL/min/1. 73m2 LAB CHEMISTRY METHOD 07/17/2024 3:27 PM [facility] Comment:Calculation based on the??Chronic Kidney Disease Epidemiology Collaboration (CKD-EPI) equation refit??without adjustment for race. BUN/Creatinine Ratio 23.6 LAB CHEMISTRY METHOD 07/17/2024 3:27 PM [facility] Calcium 9.1 8.5 - 10.5 mg/dL LAB CHEMISTRY METHOD 07/17/2024 3:27 PM [facility] Blood Venous blood specimen / Unknown Venipuncture / Unknown 07/17/2024 8:25 AM EST 07/17/2024 11:55 AM EST us Jesu Mireles MD LAB BLOOD ORDERABLES Final Result [facility] [address] [place] [address], * (ABNORMAL) Complete blood count (07/17/2024 8:25 AM EST) [facility] WBC 11.5(H) 4.8 - 10.8 K/mcL LAB HEMETOLOGY METHOD 07/17/2024 1:31 PM [facility] RBC 4.30 3.80 - 4.80 M/mcL LAB HEMETOLOGY METHOD 07/17/2024 1:31 PM [facility] Hemoglobin 13.7 11.5 - 16.0 g/dL LAB HEMETOLOGY METHOD 07/17/2024 1:31 PM [facility] Hematocrit 41.6 35.0 - 47.0 % LAB HEMETOLOGY METHOD 07/17/2024 1:31 PM [facility] MCV 97.0 79.0 - 98.0 FL LAB HEMETOLOGY METHOD 07/17/2024 1:31 PM [facility] MCH 31.9 27.0 - 32.0 pcg LAB HEMETOLOGY METHOD 07/17/2024 1:31 PM [facility] MCHC 32.9 32.0 - 37.0 g/dL LAB HEMETOLOGY METHOD 07/17/2024 1:31 PM [facility] RDW 15.6(H) 11.0 - 15.0 % LAB HEMETOLOGY METHOD 07/17/2024 1:31 PM [facility] Platelets 399 130 - 400 K/mcL LAB HEMETOLOGY METHOD 07/17/2024 1:31 PM [facility] MPV 9.7 7.0 - 11.0 FL LAB HEMETOLOGY METHOD 07/17/2024 1:31 PM [facility] NRBC 0.0 <1.0 % LAB HEMETOLOGY METHOD 07/17/2024 1:31 PM [facility] NRBC Absolute 0.00 <0.10 K/mcL LAB HEMETOLOGY METHOD 07/17/2024 1:31 PM EST [facility] Blood Venous blood specimen / Unknown Venipuncture / Unknown 07/17/2024 8:25 AM EST 07/17/2024 11:55 AM EST us Jesu Mireles MD LAB BLOOD ORDERABLES Final Result [facility] [address] [place] [address], documented in this encounter Visit Diagnoses Diagnosis Repeated falls Altered mental status, unspecified documented in this encounter Care Teams It Infrastructure Specialist Relationship Specialty Start Date End Date Jesu Mireles MD [address] [place] [id number] PCP - General Internal Medicine 07/07/24 documented as of this encounter
== END 2024-08-04 15:13 | disposition home or self-care (01) ==
PROVIDERS: PCP Internal Medicine; Visit Provider Internal Medicine
DX: Z09 Encounter for follow-up examination after completed treatment for conditions other than malignant neoplasm (principal); R55 Syncope and collapse; N39.0 Urinary tract infection, site not specified; I10 Essential (primary) hypertension; F41.1 Generalized anxiety disorder; E78.9 Disorder of lipoprotein metabolism, unspecified; G47.9 Sleep disorder, unspecified; R10.13 Epigastric pain; Z86.73 Personal history of transient ischemic attack (TIA), and cerebral infarction without residual deficits; R73.03 Prediabetes; R74.8 Abnormal levels of other serum enzymes; J44.9 Chronic obstructive pulmonary disease, unspecified

== ENCOUNTER 2024-11-15 12:11 | Outpatient (AMB) | payer MEDICARE, MEDICAID, SELFPAY ==
[2024-11-15 12:17] VITALS: BP 144/82; PULSE 80; RESP 16; O2SAT 96; BMI 32.2
--- NOTE | 2024-11-15 12:17 | A.OFFPC_ITS ---
Vital Signs 11/15/24 12:17 Height 5 ft 2 in Weight 176 lb BMI 32.2 BP 144/82 H Blood Pressure Location Lt brachial Position Sitting Respiration 16 Pulse 80 Pulse Source Pulse Oximeter Pulse Oximetry (%) 96 Oxygen Delivery Method Room Air Intake Visit Reasons: F/Up Allergies tetracycline Allergy (Unknown, Verified 08/04/24 14:36) rash Medication List - Last Reconciled 11/15/24 by Corwin Samson MD albuterol sulfate 90 mcg/actuation 2 inhalations inhalation QID PRN aspirin 1 tab PO DAILY 90 days atorvastatin 80 mg PO DAILY 90 days [Bp Monitor As directed] clopidogrel 75 mg PO DAILY commode (bedside commode) As directed duloxetine 30 mg PO DAILY losartan 50 mg PO DAILY meclizine 25 mg PO DAILY PRN metoprolol tartrate 50 mg PO BID nebulizers Use three times per day as need for sob/diff breathing omeprazole 20 mg PO DAILY@0630 walker wheeled walker with seat and brakes Tobacco use date assessed: 08/04/24 Dental Screening Dental Screen Date: 06/21/24 HPI F/Up HPI Details History - The patient is a 69-year-old female pr esenting with dizziness. - Dizziness occurs when turning too quic kly; condition is stable and manageable. - History of Cerebrovascular Accident (C VA) with speech deficit; currently managing and not discussed further in detail regarding progression. - Chronic Obstructive Pulmonary Disease (COPD) ongoing with stable management. - Past episodes of hyperlipidemia, stabl e under continued medication management. Medical History: - History of Cerebrovascular Accident (C VA) with speech deficit - Chronic Obstructive Pulmonary Disease (COPD) - Essential Hypertension - Hyperlipidemia Medications: - Duloxetine (Depot: unknown, for presum ed psychiatric condition) - Losartan (indication: hypertension) - Meclizine (indication: dizziness) - Metoprolol (indication: hypertension) - Omeprazole (Depot: unknown, likely gas trointestinal condition) Social History: - Lives alone - Assisted by a care worker for daily ac tivities - Daughter is unable to assist due to ba ck injury Diagnostic Results: - Labs from July: Kidney function no rmal, Electrolytes normal, Liver enzymes stable Problem List - Cerebrovascular Accident (CVA) with sp eech deficit - Chronic Obstructive Pulmonary Disease (COPD) - Essential Hypertension - Hyperlipidemia - Dizziness Patient Instructions - Continue medications as prescribed - Labs to be completed before next visit - Follow up in three months - Use caution with mobility and walker a ssistance Review system - General: No fever no chills - Neurological: No headaches no dizziness - Ear nose throat: No sore throat no hearing difficulty no ear pain - Cardiovascular: No syncope, no chest pain, no palpitations - Gastrointestinal: No nausea vomiting or diarrhea - Endocrine: No polyuria polydipsia no heat intolerance - Genitourinary: No dysuria , no blood in urine Physical Exam General: No acute distress HEENT: No acute findings Neck: Supple Respiratory system: Able to talk in full sentences, no audible wheeze Cardiovascular: S1-S2 regular in rate and rhythm Gastrointestinal: No pain Extremities: Right side weakness noted, able to lift both leg, can stand without assistance COOK PRESSURE: Alert awake oriented x3 motor sensory intact Skin: Normal turgor [facility] Medical History Lipid disorder Hypertension, essential Anxiety, generalized History of stroke Difficulty sleeping Dyspepsia Tobacco abuse Surgical History No pertinent past surgical history Family History Father No problems noted. Mother No problems noted. Brother No problems noted. Son No problems noted. Daughter No problems noted. Sister No problems noted. Sister No problems noted. Other Mental health disorder Substance use disorder Social History Household Members: Children Housing: Apartment Do you presently have visiting nurse or other home services: No Alcohol intake: former Year quit: 2019 Patient Tobacco Use Status: Former Tobacco user Cigarette Packs Per Day: 0.5 e-Cigarette/Vaping Use: Never Used service: No Current occupational status: retired Cognitive needs: No Hearing needs: No Vision needs: No Questionnaire Thrive Questionnaire Date Thrive assessed: 06/21/24 I am a: Patient What is your living situation today?: I choose not to answer this question Within the past 12 months, did the food you bought not last and you didn't have the money to get more?: I choose not to answer this question Within the past 12 months, did you worry whether your food would run out before you got money to buy more?: I choose not to answer this question Do you have trouble paying for medicines?: I choose not to answer this question Do you have trouble getting transportation to medical appointments?: I choose not to answer this question Do you have trouble paying your heating and electricity bill?: I choose not to answer this question Do you have trouble taking care of your child, family member or friend?: I choose not to answer this question Do you have trouble with day-to-day activities such as bathing, preparing meals, shopping, managing finances, etc.?: I choose not to answer this question Are you currently unemployed and looking for a job?: I choose not to answer this question Are you interested in more education?: I choose not to answer this question Please select the resources that you would like help with: None Currently or been in a relationship where the following occur: I choose not to answer THRIVE Score: 0 DAYANA-7 AMB Questionnaire DAYANA-7 Date DAYANA - 7 assessed: 06/21/24 Source: Developed by Drs. Joe Sanches, Breann Lee, Byron Garza and colleagues, with an educational jah from [employer]. Physical exam (Primary Care) Vital Signs: Last Vital Signs Pulse 80 11/15/24 12:17 Resp 16 11/15/24 12:17 BP 144/82 H 11/15/24 12:17 Pulse Ox 96 11/15/24 12:17 Oxygen Delivery Method Room Air 11/15/24 12:17 BMI result Body Mass Index 32.2 Tobacco/Smoking Status: Tobacco use Status Tobacco use date assessed 08/04/24 11/15/24 12:21 Patient Tobacco Use Status Former Tobacco user 11/15/24 12:21 e-Cigarette/Vaping Use Never Used 11/15/24 12:21 Thrive Assessment: Date of Thrive Assessment Date Thrive assessed 06/21/24 11/15/24 12:21 Currently or been in a relationship where the following occur: I choose not to answer Coding Level of Care Code Est Pt Level 5 (34472) Diagnoses Hypertension, essential I10 Lipid disorder E78.9 Anxiety, generalized F41.1 Pre-diabetes R73.03 Chronic obstructive pulmonary disease, unspecified COPD type J44.9 COPD type: unspecified COPD Elevated CPK R74.8 History of stroke Z86.73 Right leg weakness R29.898 Time Spent (min) 40 Comment Reviewing chart/labs/medication/oeqi-uy-ypgk/coordination of care Assessment & Plan Assessment & Plan (1) Hypertension, essential: Code(s): I10 - Essential (primary) hypertension Category: Medical (2) Lipid disorder: Code(s): E78.9 - Disorder of lipoprotein metabolism, unspecified Category: Medical (3) Anxiety, generalized: Code(s): F41.1 - Generalized anxiety disorder Category: Medical (4) Pre-diabetes: Code(s): R73.03 - Prediabetes Category: Medical (5) COPD (chronic obstructive pulmonary disease): Comment: Long history of smoking in the past Code(s): J44.9 - Chronic obstructive pulmonary disease, unspecified Category: Medical Qualifiers: COPD type: unspecified COPD Qualified Code(s): J44.9 - Chronic obstructive pulmonary disease, unspecified (6) Elevated CPK: Code(s): R74.8 - Abnormal levels of other serum enzymes Category: Medical (7) History of stroke: Code(s): Z86.73 - Personal history of transient ischemic attack (TIA), and cerebral infarction without residual deficits Category: Medical (8) Right leg weakness: Code(s): R29.898 - Other symptoms and signs involving the musculoskeletal system Category: Medical Plan History - The patient is a 69-year-old female presenting with dizziness. - Dizziness occurs when turning too quickly; condition is stable and manageable. - History of Cerebrovascular Accident (CVA) with speech deficit; currently managing and not discussed further in detail regarding progression. - Chronic Obstructive Pulmonary Disease (COPD) ongoing with stable management. - Past episodes of hyperlipidemia, stable under continued medication management. Medical History: - History of Cerebrovascular Accident (CVA) with speech deficit - Chronic Obstructive Pulmonary Disease (COPD) - Essential Hypertension - Hyperlipidemia Medications: - Duloxetine (Depot: unknown, for presumed psychiatric condition) - Losartan (indication: hypertension) - Meclizine (indication: dizziness) - Metoprolol (indication: hypertension) - Omeprazole (Depot: unknown, likely gastrointestinal condition) Social History: - Lives alone - Assisted by a care worker for daily activities - Daughter is unable to assist due to back injury Diagnostic Results: - Labs from July: Kidney function normal, Electrolytes normal, Liver enzymes stable Problem List - Cerebrovascular Accident (CVA) with speech deficit - Chronic Obstructive Pulmonary Disease (COPD) - Essential Hypertension - Hyperlipidemia - Dizziness Patient Instructions - Continue medications as prescribed - Labs to be completed before next visit - Follow up in three months - Use caution with mobility and walker assistance Orders: Orders Comprehensive Met. Panel Today E78.9 - Disorder of lipoprotein metabolism, unspecified, F41.1 - Generalized anxiety disorder, I10 - Essential (primary) hypertension, J44.9 - Chronic obstructive pulmonary disease, unspecified, R73.03 - Prediabetes, R74.8 - Abnormal levels of other serum enzymes Vitamin D 25-OH (D2 and D3) Today E78.9 - Disorder of lipoprotein metabolism, unspecified, F41.1 - Generalized anxiety disorder, I10 - Essential (primary) hypertension, J44.9 - Chronic obstructive pulmonary disease, unspecified, R73.03 - Prediabetes, R74.8 - Abnormal levels of other serum enzymes Vitamin B12 Today E78.9 - Disorder of lipoprotein metabolism, unspecified, F41.1 - Generalized anxiety disorder, I10 - Essential (primary) hypertension, J44.9 - Chronic obstructive pulmonary disease, unspecified, R73.03 - Prediabetes, R74.8 - Abnormal levels of other serum enzymes TSH reflex Free T4 Today E78.9 - Disorder of lipoprotein metabolism, unspecified, F41.1 - Generalized anxiety disorder, I10 - Essential (primary) hypertension, J44.9 - Chronic obstructive pulmonary disease, unspecified, R73.03 - Prediabetes, R74.8 - Abnormal levels of other serum enzymes Creatine Kinase Total Today R73.03 - Prediabetes, R74.8 - Abnormal levels of other serum enzymes Complete Blood Count Auto Diff Today E78.9 - Disorder of lipoprotein metabolism, unspecified, F41.1 - Generalized anxiety disorder, I10 - Essential (primary) hypertension, J44.9 - Chronic obstructive pulmonary disease, unspecified, R73.03 - Prediabetes, R74.8 - Abnormal levels of other serum enzymes LDL Cholesterol Direct Today E78.9 - Disorder of lipoprotein metabolism, uns pecified, F41.1 - Generalized anxiety disorder, I10 - Essential (primary) hypertension, J44.9 - Chronic obstructive pulmonary disease, unspecified, R73.03 - Prediabetes, R74.8 - Abnormal levels of other serum enzymes Hemoglobin A1c Today R73.03 - Prediabetes, R74.8 - Abnormal levels of other serum enzymes
--- OUTSIDE RECORDS SUMMARY | 2024-11-15 12:50 | XMS_ITS | Encounter Summary ---
Author Organization [facility] Address [address] [place] [address] Care Team Providers Care Horse Doctor Name Role Phone Jesu Mireles MD Primary Care Provider [phone]- [phone] Encounter Details Date Type Department Care Team (Late st Contact Info) Description 07/30/2024 Lab Requisition [facility] - Main Lab [address] [facility] [place] [address] Jesu Mireles MD [address] [place] [address] Altered mental status, unspecified; Repeated falls Social [...] falls documented in this encounter Care Teams Horse Doctor Relationship Specialty Start Date End Date Jesu Mireles MD [address] [place] [address] PCP - General Internal Medicine 07/07/24 documented as of this encounter
== END 2024-11-15 12:33 | disposition home or self-care (01) ==
LOC: HO.HMCC 12:12
PROVIDERS: PCP Internal Medicine; Visit Provider Internal Medicine
DX: I10 Essential (primary) hypertension (principal); E78.9 Disorder of lipoprotein metabolism, unspecified; F41.1 Generalized anxiety disorder; R73.03 Prediabetes; J44.9 Chronic obstructive pulmonary disease, unspecified; R74.8 Abnormal levels of other serum enzymes; Z86.73 Personal history of transient ischemic attack (TIA), and cerebral infarction without residual deficits; R29.898 Other symptoms and signs involving the musculoskeletal system

== ENCOUNTER → 2024-11-15 12:11 | Outpatient (BNVA) | payer MEDICARE, MEDICAID, SELFPAY | PROVIDERS: PCP Internal Medicine; Visit Provider Internal Medicine | DX: R42 Dizziness and giddiness (principal); I10 Essential (primary) hypertension; E78.9 Disorder of lipoprotein metabolism, unspecified; Z86.73 Personal history of transient ischemic attack (TIA), and cerebral infarction without residual deficits; J44.9 Chronic obstructive pulmonary disease, unspecified; E78.5 Hyperlipidemia, unspecified; F41.1 Generalized anxiety disorder; R73.03 Prediabetes; R74.8 Abnormal levels of other serum enzymes; R29.898 Other symptoms and signs involving the musculoskeletal system | CPT/HCPCS: 99212 ==

== ENCOUNTER 2025-03-09 13:28 | Outpatient (REF) | payer MEDICARE, MEDICAID, SELFPAY ==
--- OUTSIDE RECORDS SUMMARY | 2025-03-09 14:48 | XMS_ITS | Encounter Summary ---
Author Organization [facility] Address [address] [place] [address] Care Team Providers Care Occupational Therapy Supervisor Name Role Phone Jesu Mireles MD Primary Care Provider [phone]- [phone] Encounter Details Date Type Department Care Team (Late st Contact Info) Description 07/08/2024 Lab Requisition [facility] - Main Lab [address] [place] [address] Jesu Mireles MD [address] [place], [place] [phone] Repeated falls; Altered mental status, unspecified Social [...] LAB CHEMISTRY METHOD 07/10/2024 11:35 AM EST [facility] ([facility] Potassium 3.6 3.5 - 5.5 mmol/L LAB CHEMISTRY METHOD 07/10/2024 11:35 AM [facility] Chloride 109 96 - 110 mmol/L LAB CHEMISTRY METHOD 07/10/2024 11:35 AM [facility] CO2 28 21 - 32 mmol/L LAB CHEMISTRY METHOD 07/10/2024 11:35 AM [facility] Anion Gap 7 3 - 11 LAB CHEMISTRY METHOD 07/10/2024 11:35 AM [facility] Glucose 100 70 - 100 mg/dL LAB CHEMISTRY METHOD 07/10/2024 11:35 AM [facility] BUN 13 5 - 25 mg/dL LAB CHEMISTRY METHOD 07/10/2024 11:35 AM [facility] Creatinine 0.64 0.50 - 1.10 mg/dL LAB CHEMISTRY METHOD 07/10/2024 11:35 AM [facility] eGFR 95 >=60 mL/min/1. 73m2 LAB CHEMISTRY METHOD 07/10/2024 11:35 AM [facility] Comment:Calculation based on the Chronic Kidney Disease Epidemiology Collaboration (CKD-EPI) equation refit without adjustment for race. BUN/Creatinine Ratio 20.3 LAB CHEMISTRY METHOD 07/10/2024 11:35 AM [facility] Calcium 8.6 8.5 - 10.5 mg/dL LAB CHEMISTRY METHOD 07/10/2024 11:35 AM [facility] Blood Venous blood specimen / Unknown Venipuncture / Unknown 07/10/2024 8:36 AM EST 07/10/2024 10:48 AM EST us Jesu Mireles MD LAB BLOOD ORDERABLES Final Result [facility] [address] [place] [address], [place] [phone] * Complete blood count (07/10/2024 8:36 AM EST) [facility] WBC 6.5 4.8 - 10.8 K/mcL LAB HEMETOLOGY METHOD 07/10/2024 11:12 AM [facility] RBC 4.10 3.80 - 4.80 M/mcL LAB HEMETOLOGY METHOD 07/10/2024 11:12 AM [facility] Hemoglobin 13.0 11.5 - 16.0 g/dL LAB HEMETOLOGY METHOD 07/10/2024 11:12 AM [facility] Hematocrit 39.9 35.0 - 47.0 % LAB HEMETOLOGY METHOD 07/10/2024 11:12 AM [facility] MCV 97.6 79.0 - 98.0 FL LAB HEMETOLOGY METHOD 07/10/2024 11:12 AM [facility] MCH 31.8 27.0 - 32.0 pcg LAB HEMETOLOGY METHOD 07/10/2024 11:12 AM [facility] MCHC 32.6 32.0 - 37.0 g/dL LAB HEMETOLOGY METHOD 07/10/2024 11:12 AM [facility] RDW 14.5 11.0 - 15.0 % LAB HEMETOLOGY METHOD 07/10/2024 11:12 AM [facility] Platelets 324 130 - 400 K/mcL LAB HEMETOLOGY METHOD 07/10/2024 11:12 AM [facility] MPV 9.5 7.0 - 11.0 FL LAB HEMETOLOGY METHOD 07/10/2024 11:12 AM [facility] NRBC 0.0 <1.0 % LAB HEMETOLOGY METHOD 07/10/2024 11:12 AM [facility] NRBC Absolute 0.00 <0.10 K/mcL LAB HEMETOLOGY METHOD 07/10/2024 11:12 AM [facility] Blood Venous blood specimen / Unknown Venipuncture / Unknown 07/10/2024 8:36 AM EST 07/10/2024 10:45 AM EST Jesu Mireles MD LAB BLOOD ORDERABLES Final Result Performing Organization Address City/State/[facility] Co de Phone Number [facility] ([facility]) [facility] [address] [place] [address], documented in this encounter Visit Diagnoses Diagnosis Repeated falls Altered mental status, unspecified documented in this encounter Care Teams Occupational Therapy Supervisor Relationship Specialty Start Date End Date Jesu Mireles MD [address] [place] [id number] PCP - General Internal Medicine 07/07/24 documented as of this encounter
--- OUTSIDE RECORDS SUMMARY | 2025-03-09 14:48 | XMS_ITS | Encounter Summary ---
Author Organization [facility] Address [address] [place] [address] Care Team Providers Care Regional Ehs Manager Name Role Phone Jesu Mireles MD Primary Care Provider +1- [phone] Encounter Details Date Type Department Care Team (Late st Contact Info) Description 07/15/2024 Lab Requisition [facility] - Main Lab [address] [place] [address] Jesu Mireles MD [address] [place], [place] [phone] Repeated falls; Altered mental status, unspecified Social [...] METHOD 07/17/2024 3:27 PM EST [facility] Potassium 3.6 3.5 - 5.5 mmol/L LAB CHEMISTRY METHOD 07/17/2024 3:27 PM [facility] Chloride 110 96 - 110 mmol/L LAB CHEMISTRY METHOD 07/17/2024 3:27 PM [facility] CO2 25 21 - 32 mmol/L LAB CHEMISTRY METHOD 07/17/2024 3:27 PM [facility] Anion Gap 8 3 - 11 LAB CHEMISTRY METHOD 07/17/2024 3:27 PM [facility] Glucose 76 70 - 100 mg/dL LAB CHEMISTRY METHOD 07/17/2024 3:27 PM [facility] BUN 17 5 - 25 mg/dL LAB CHEMISTRY METHOD 07/17/2024 3:27 PM [facility] Creatinine 0.72 0.50 - 1.10 mg/dL LAB CHEMISTRY METHOD 07/17/2024 3:27 PM [facility] eGFR 90 >=60 mL/min/1. 73m2 LAB CHEMISTRY METHOD 07/17/2024 3:27 PM [facility] LAB Comment:Calculation based on the Chronic Kidney Disease Epidemiology Collaboration (CKD-EPI) equation refit without adjustment for race. BUN/Creatinine Ratio 23.6 LAB CHEMISTRY METHOD 07/17/2024 3:27 PM [facility] Calcium 9.1 8.5 - 10.5 mg/dL LAB CHEMISTRY METHOD 07/17/2024 3:27 PM [facility] Blood Venous blood specimen / Unknown Venipuncture / Unknown 07/17/2024 8:25 AM EST 07/17/2024 11:55 AM EST us Jesu Mireles MD LAB BLOOD ORDERABLES Final Result [facility] [address] [place] [address], [place] [phone] * (ABNORMAL) Complete blood count (07/17/2024 8:25 AM EST) [facility] WBC 11.5(H) 4.8 - 10.8 K/mcL LAB HEMETOLOGY METHOD 07/17/2024 1:31 PM [facility] RBC 4.30 3.80 - 4.80 M/mcL LAB HEMETOLOGY METHOD 07/17/2024 1:31 PM [facility] Hemoglobin 13.7 11.5 - 16.0 g/dL LAB HEMETOLOGY METHOD 07/17/2024 1:31 PM [facility] Hematocrit 41.6 35.0 - 47.0 % LAB HEMETOLOGY METHOD 07/17/2024 1:31 PM [facility] MCV 97.0 79.0 - 98.0 FL LAB HEMETOLOGY METHOD 07/17/2024 1:31 PM [facility] MCH 31.9 27.0 - 32.0 pcg LAB HEMETOLOGY METHOD 07/17/2024 1:31 PM [facility] MCHC 32.9 32.0 - 37.0 g/dL LAB HEMETOLOGY METHOD 07/17/2024 1:31 PM [facility] RDW 15.6(H) 11.0 - 15.0 % LAB HEMETOLOGY METHOD 07/17/2024 1:31 PM [facility] Platelets 399 130 - 400 K/mcL LAB HEMETOLOGY METHOD 07/17/2024 1:31 PM [facility] MPV 9.7 7.0 - 11.0 FL LAB HEMETOLOGY METHOD 07/17/2024 1:31 PM [facility] NRBC 0.0 <1.0 % LAB HEMETOLOGY METHOD 07/17/2024 1:31 PM [facility] NRBC Absolute 0.00 <0.10 K/mcL LAB HEMETOLOGY METHOD 07/17/2024 1:31 PM EST [facility] Blood Venous blood specimen / Unknown Venipuncture / Unknown 07/17/2024 8:25 AM EST 07/17/2024 11:55 AM EST Jesu Mireles MD LAB BLOOD ORDERABLES Final Result [facility] [address] [place] [address], documented in this encounter Visit Diagnoses Diagnosis Repeated falls Altered mental status, unspecified documented in this encounter Care Teams Regional Ehs Manager Relationship Specialty Start Date End Date Jesu Mireles MD [address] [place] [phone] PCP - General Internal Medicine 07/07/24 documented as of this encounter
--- OUTSIDE RECORDS SUMMARY | 2025-03-09 14:48 | XMS_ITS | Encounter Summary ---
Author Organization [facility] [address] Address [address] [place] [address] Care Team Providers Care Rabbit Fancier Name Role Phone Jesu Mireles MD Primary Care Provider +1- [phone] Encounter Details Date Type Department Care Team (Late st Contact Info) Description 07/23/2024 Lab Requisition [facility] - Main Lab [address] [place] [address] Jesu Mireles MD [address] [place], [place] [phone] Altered mental status, unspecified; Repeated falls Social [...] LAB CHEMISTRY METHOD 07/24/2024 1:51 PM EST [facility] Potassium 3.7 3.5 - 5.5 mmol/L LAB CHEMISTRY METHOD 07/24/2024 1:51 PM [facility] Chloride 110 96 - 110 mmol/L LAB CHEMISTRY METHOD 07/24/2024 1:51 PM [facility] CO2 25 21 - 32 mmol/L LAB CHEMISTRY METHOD 07/24/2024 1:51 PM [facility] Anion Gap 7 3 - 11 LAB CHEMISTRY METHOD 07/24/2024 1:51 PM [facility] Glucose 150(H) 70 - 100 mg/dL LAB CHEMISTRY METHOD 07/24/2024 1:51 PM [facility] BUN 12 5 - 25 mg/dL LAB CHEMISTRY METHOD 07/24/2024 1:51 PM [facility] Creatinine 0.78 0.50 - 1.10 mg/dL LAB CHEMISTRY METHOD 07/24/2024 1:51 PM [facility] eGFR 82 >=60 mL/min/1. 73m2 LAB CHEMISTRY METHOD 07/24/2024 1:51 PM [facility] LAB Comment:Calculation based on the Chronic Kidney Disease Epidemiology Collaboration (CKD-EPI) equation refit without adjustment for race. BUN/Creatinine Ratio 15.4 LAB CHEMISTRY METHOD 07/24/2024 1:51 PM [facility] Calcium 8.7 8.5 - 10.5 mg/dL LAB CHEMISTRY METHOD 07/24/2024 1:51 PM [facility] Blood Venous blood specimen / Unknown Venipuncture / Unknown 07/24/2024 9:45 AM EST 07/24/2024 11:12 AM EST us Jesu Mireles MD LAB BLOOD ORDERABLES Final Result [facility] [address] [place] [address], * (ABNORMAL) Complete blood count (07/24/2024 9:45 AM EST) [facility] WBC 8.6 4.8 - 10.8 K/mcL LAB HEMETOLOGY METHOD 07/24/2024 12:44 PM [facility] RBC 4.40 3.80 - 4.80 M/mcL LAB HEMETOLOGY METHOD 07/24/2024 12:44 PM [facility] Hemoglobin 14.0 11.5 - 16.0 g/dL LAB HEMETOLOGY METHOD 07/24/2024 12:44 PM [facility] Hematocrit 44.0 35.0 - 47.0 % LAB HEMETOLOGY METHOD 07/24/2024 12:44 PM [facility] MCV 100.7(H) 79.0 - 98.0 FL LAB HEMETOLOGY METHOD 07/24/2024 12:44 PM [facility] MCH 32.0 27.0 - 32.0 pcg LAB HEMETOLOGY METHOD 07/24/2024 12:44 PM [facility] MCHC 31.8(L) 32.0 - 37.0 g/dL LAB HEMETOLOGY METHOD 07/24/2024 12:44 PM [facility] RDW 15.7(H) 11.0 - 15.0 % LAB HEMETOLOGY METHOD 07/24/2024 12:44 PM [facility] Platelets 271 130 - 400 K/mcL LAB HEMETOLOGY METHOD 07/24/2024 12:44 PM [facility] MPV 10.4 7.0 - 11.0 FL LAB HEMETOLOGY METHOD 07/24/2024 12:44 PM [facility] NRBC 0.0 <1.0 % LAB HEMETOLOGY METHOD 07/24/2024 12:44 PM [facility] NRBC Absolute 0.00 <0.10 K/mcL LAB HEMETOLOGY METHOD 07/24/2024 12:44 PM EST [facility] LAB Blood Venous blood specimen / Unknown Venipuncture / Unknown 07/24/2024 9:45 AM EST 07/24/2024 11:12 AM EST Jesu Mireles MD LAB BLOOD ORDERABLES Final Result [facility] [address] [place] [address], documented in this encounter Visit Diagnoses Diagnosis Altered mental status, unspecified Repeated falls documented in this encounter Care Teams Rabbit Fancier Relationship Specialty Start Date End Date Jesu Mireles MD [address] [place] [id number] PCP - General Internal Medicine 07/07/24 documented as of this encounter
--- OUTSIDE RECORDS SUMMARY | 2025-03-09 14:48 | XMS_ITS | Encounter Summary ---
Author Organization [facility] Address [address] [place] [address] Care Team Providers Care Covering Machine Operator Helper Name Role Phone Jesu Mireles MD Primary Care Provider [phone]- [phone] Encounter Details Date Type Department Care Team (Late st Contact Info) Description 07/07/2024 Lab Requisition [facility] - Main Lab [address] [place] [address] Jesu Mireles MD [address] [place], [place] [id number] Repeated falls; Urinary tract infection, site not [...] LAB CHEMISTRY METHOD 07/07/2024 10:47 AM EST [facility] Potassium 3.7 3.5 - 5.5 mmol/L LAB CHEMISTRY METHOD 07/07/2024 10:47 AM [facility] Chloride 103 96 - 110 mmol/L LAB CHEMISTRY METHOD 07/07/2024 10:47 AM [facility] CO2 29 21 - 32 mmol/L LAB CHEMISTRY METHOD 07/07/2024 10:47 AM [facility] Anion Gap 8 3 - 11 LAB CHEMISTRY METHOD 07/07/2024 10:47 AM [facility] Glucose 98 70 - 100 mg/dL LAB CHEMISTRY METHOD 07/07/2024 10:47 AM [facility] BUN 11 5 - 25 mg/dL LAB CHEMISTRY METHOD 07/07/2024 10:47 AM [facility] Creatinine 0.59 0.50 - 1.10 mg/dL LAB CHEMISTRY METHOD 07/07/2024 10:47 AM [facility] eGFR 97 >=60 mL/min/1. 73m2 LAB CHEMISTRY METHOD 07/07/2024 10:47 AM [facility] Comment:Calculation based on the Chronic Kidney Disease Epidemiology Collaboration (CKD-EPI) equation refit without adjustment for race. BUN/Creatinine Ratio 18.6 LAB CHEMISTRY METHOD 07/07/2024 10:47 AM [facility] Calcium 8.3(L) 8.5 - 10.5 mg/dL LAB CHEMISTRY METHOD 07/07/2024 10:47 AM [facility] AST (SGOT) 55(H) 10 - 42 unit/L LAB CHEMISTRY METHOD 07/07/2024 10:47 AM [facility] ALT (SGPT) 47 10 - 60 unit/L LAB CHEMISTRY METHOD 07/07/2024 10:47 AM [facility] Alkaline Phosphatase 58 42 - 121 unit/L LAB CHEMISTRY METHOD 07/07/2024 10:47 AM [facility] Total Protein 5.2(L) 6.0 - 8.0 g/dL LAB CHEMISTRY METHOD 07/07/2024 10:47 AM [facility] Albumin 2.4(L) 3.2 - 5.0 g/dL LAB CHEMISTRY METHOD 07/07/2024 10:47 AM [facility] Total Bilirubin 0.6 0.0 - 1.4 mg/dL LAB CHEMISTRY METHOD 07/07/2024 10:47 AM EST [facility] Blood Venous blood specimen / Unknown Venipuncture / Unknown 07/07/2024 5:42 AM EST 07/07/2024 9:56 AM EST Jesu Mireles MD LAB BLOOD ORDERABLES Final Result [facility] [address] [place] [address], * (ABNORMAL) Complete blood count (07/07/2024 5:42 AM EST) WBC 9.7 4.8 - 10.8 K/mcL LAB HEMETOLOGY METHOD 07/07/2024 10:18 AM [facility] RBC 4.20 3.80 - 4.80 M/mcL LAB HEMETOLOGY METHOD 07/07/2024 10:18 AM [facility] Hemoglobin 13.4 11.5 - 16.0 g/dL LAB HEMETOLOGY METHOD 07/07/2024 10:18 AM [facility] Hematocrit 40.0 35.0 - 47.0 % LAB HEMETOLOGY METHOD 07/07/2024 10:18 AM [facility] MCV 96.4 79.0 - 98.0 FL LAB HEMETOLOGY METHOD 07/07/2024 10:18 AM [facility] MCH 32.3(H) 27.0 - 32.0 pcg LAB HEMETOLOGY METHOD 07/07/2024 10:18 AM EST [facility] MCHC 33.5 32.0 - 37.0 g/dL LAB HEMETOLOGY METHOD 07/07/2024 10:18 AM [facility] RDW 14.6 11.0 - 15.0 % LAB HEMETOLOGY METHOD 07/07/2024 10:18 AM [facility] Platelets 231 130 - 400 K/mcL LAB HEMETOLOGY METHOD 07/07/2024 10:18 AM EST [facility] MPV 9.7 7.0 - 11.0 FL LAB HEMETOLOGY METHOD 07/07/2024 10:18 AM [facility] NRBC 0.0 <1.0 % LAB HEMETOLOGY METHOD 07/07/2024 10:18 AM [facility] NRBC Absolute 0.00 <0.10 K/mcL LAB HEMETOLOGY METHOD 07/07/2024 10:18 AM [facility] Blood Venous blood specimen / Unknown Venipuncture / Unknown 07/07/2024 5:42 AM EST 07/07/2024 9:56 AM EST us Jesu Mireles MD LAB BLOOD ORDERABLES Final Result [facility] [address] [place] [address], documented in this encounter Visit Diagnoses Diagnosis Repeated falls Urinary tract infection, site not specified documented in this encounter Care Teams Covering Machine Operator Helper Relationship Specialty Start Date End Date Jesu Mireles MD [address] [place] [id number] PCP - General Internal Medicine 07/07/24 documented as of this encounter
--- OUTSIDE RECORDS SUMMARY | 2025-03-09 14:48 | XMS_ITS | Encounter Summary ---
Author Organization [facility] Address [address] [place] [address] Care Team Providers Care Filler And Trimmer Name Role Phone Jesu Mireles MD Primary Care Provider +1- [phone] Encounter Details Date Type Department Care Team (Late st Contact Info) Description 07/30/2024 Lab Requisition [facility] - Main Lab [address] [facility] [place] [address] Jesu Mireles MD [address] [place] [address] Altered mental status, unspecified; Repeated falls Social [...] falls documented in this encounter Care Teams Filler And Trimmer Relationship Specialty Start Date End Date Jesu Mireles MD [address] [place] [address] PCP - General Internal Medicine 07/07/24 documented as of this encounter
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
[2025-03-09 16:09] LABS: MANUAL DIFF FLAG NO
[2025-03-09 16:15] LABS: Hematocrit 46.9 % (37.0-47.0); Hemoglobin 15.6 g/dl (12.0-16.0); Imm Gran Abs Auto 0.07 X10*3/uL (0.00-0.03); Imm Gran Pct Auto 0.6 % (0.0-0.4); Lymphocytes Absolute Auto 2.3 X10*3/uL (1.2-4.9); Mean Corpuscular HGB Conc 33.3 g/dl (31.0-35.0); Mean Corpuscular Hemoglobin 31.6 pg (27.0-33.0); Mean Corpuscular Volume 94.9 fL (80.0-98.0); NRBC Abs Auto 0.000 X10*3/uL (0.0-0.012); NRBC Pct Auto 0.0 /100WBC (0.0-0.2); Platelet Count 307 X10*3/uL (160-400); Red Blood Count 4.94 X10*6/uL (4.20-5.50); White Blood Count 12.6 X10*3/uL (4.8-10.8)
[2025-03-09 16:26] LABS: Total Hemoglobin (HGBA1C) 3844.2955 umol/L
[2025-03-09 16:38] LABS: Alanine Aminotransferase 14 U/L (0-31); Albumin Level 4.0 g/dL (3.5-5.0); Alkaline Phosphatase 87 U/L (39-117); Anion Gap 15 (12-20); Aspartate Amino Transferase 22 U/L (5-31); Blood Urea Nitrogen 20 mg/dL (9-16); Calcium 9.2 mg/dL (8.4-10.2); Carbon Dioxide 22 mmol/L (22-29); Chloride 112 mmol/L (96-108); Estimated Glomerular Filt Rate 54; Potassium 4.0 mmol/L (3.3-5.1); Sodium 145 mmol/L (135-145); Total Protein 7.0 g/dL (6.5-8.0)
[2025-03-09 16:49] LABS: Vitamin B12 291 pg/mL (200-900)
[2025-03-15 13:23] LABS: Vitamin D 25-OH, D2 <4 ng/mL; Vitamin D 25-OH, D3 18 ng/mL; Vitamin D 25-OH, Total 18 ng/mL (30-100)
== END 2025-03-09 13:29 | disposition home or self-care (01) ==
LOC: HO.HMGCLDS 13:28
PROVIDERS: PCP Internal Medicine; Visit Provider Internal Medicine
DX: I10 Essential (primary) hypertension (principal); E78.9 Disorder of lipoprotein metabolism, unspecified; F41.1 Generalized anxiety disorder; R73.03 Prediabetes; J44.9 Chronic obstructive pulmonary disease, unspecified; R74.8 Abnormal levels of other serum enzymes; R29.898 Other symptoms and signs involving the musculoskeletal system; Z79.82 Long term (current) use of aspirin; Z79.899 Other long term (current) drug therapy; Z86.73 Personal history of transient ischemic attack (TIA), and cerebral infarction without residual deficits
CPT/HCPCS: 36415; 80053; 82306; 82550; 82607; 83036; 83721; 84443; 85025; 99212

== ENCOUNTER 2025-03-09 13:46 | Outpatient (AMB) | payer MEDICARE, MEDICAID, SELFPAY ==
[2025-03-09 13:51] VITALS: BP 140/82; PULSE 117; O2SAT 97; BMI 32.7
--- NOTE | 2025-03-09 13:51 | A.OFFPC_ITS ---
Vital Signs 03/09/25 13:51 03/09/25 14:17 Height 5 ft 2 in Weight 179 lb BMI 32.7 BP 140/82 H 138/88 Blood Pressure Location Rt brachial Position Sitting Pulse 117 H Pulse Source Pulse Oximeter Pulse Oximetry (%) 97 Oxygen Delivery Method Room Air Intake Visit Reasons: 3 F/Up, resched Associate Director Qa Required: No Allergies tetracycline Allergy (Unknown, Verified 03/09/25 13:52) rash Medication List - Last Reconciled 03/09/25 by Corwin Samson MD albuterol sulfate 90 mcg/actuation 2 inhalations inhalation QID PRN aspirin 1 tab PO DAILY 90 days atorvastatin 80 mg PO DAILY 90 days [Bp Monitor As directed] clopidogrel 75 mg PO DAILY commode (bedside commode) As directed duloxetine 30 mg PO DAILY losartan 50 mg PO DAILY meclizine 25 mg PO DAILY PRN metoprolol tartrate 50 mg PO BID nebulizers Use three times per day as need for sob/diff breathing omeprazole 20 mg PO DAILY@0630 walker wheeled walker with seat and brakes Tobacco use date assessed: 08/04/24 Fall risk assessment: 1 Fall in past year Last assessed Fall Risk: 03/09/25 Dental Screening Dental Screen Date: 06/21/24 HPI 3 F/Up, resched HPI Details History The patient is a 69-year-old female presenting with hypertension follow-up and dizziness, dietary concerns regarding consumption of orange juice and soda, potentially related GERD symptoms, and overall health check. This is a longitudinal care visit Hypertension: - Recurrent episodes of elevated blood p ressure. - Current reading at the visit was 140/8 2. - The patient suspects elevation due to recent activity and stress from running errands earlier in the day. - Continued monitoring is necessary. Dizziness: - Experiences mild dizziness upon standi ng occasionally. - Persistent issue but is being managed with medication. - No significant worsening reported. Dietary Concerns related to GERD: - Increased consumption of orange juice and newly acquired consumption of soda. - Advised reduction due to potential exa cerbation of GERD symptoms. . Medical History: - Stroke with residual right leg weaknes s, requires walker for ambulation. - Chronic Obstructive Pulmonary Disease. - Prediabetes. - Lipid disorder. - Hypertension. - Anxiety. - Dyspepsia. Medications: - Duloxetine 30 mg for depression and an xiety. - Losartan 50 mg for hypertension. - Meclizine 25 mg for dizziness. - Metoprolol 50 mg BID for hypertension. - Omeprazole 20 mg daily for GERD. Problem List - Essential Hypertension - Chronic Obstructive Pulmonary Disease (COPD) - Anxiety - Dyspepsia - Lipid Disorder - Prediabetes - Dizziness - Residual weakness post-stroke Diagnostic results - Labs: Completed this morning, results pending. Patient Instructions - Reduce the intake of orange juice to p revent acidity-related symptoms; dilute with water if needed. - Discontinue soda intake to prevent exa cerbation of GERD and other potential health issues. - Monitor blood pressure regularly. - Follow up in three months for further evaluation. - continue medications as prescribed - get up slowly to avoid dizziness Review of Systems General: No fever no chills neurological: No headaches ear nose throat: No sore throat no hearing difficulty no ear pain cardiovascular: No syncope, no chest pain, no palpitations gastrointestinal: No nausea vomiting or diarrhea skin: No new complaints Physical Exam general: No acute distress HEENT: Runny nose clear discharge neck: Supple respiratory system: Able to talk in full sentences, no audible wheeze no stridor cardiovascular: S1-S2 RRR, blood pressure 140/82 gastrointestinal: No pain, bowel sounds positive extremities: Right leg weakness, uses walker for ambulation GOVERNMENT SERVICE EXECUTIVE: Alert awake oriented x3 motor intact skin: Normal turgor [facility] Medical History Lipid disorder Hypertension, essential Anxiety, generalized History of stroke Difficulty sleeping Dyspepsia Tobacco abuse Surgical History No pertinent past surgical history Family History Father No problems noted. Mother No problems noted. Brother No problems noted. Son No problems noted. Daughter No problems noted. Sister No problems noted. Sister No problems noted. Other Mental health disorder Substance use disorder Social History Household Members: Children Housing: Apartment Do you presently have visiting nurse or other home services: No Alcohol intake: former Year quit: 2019 Patient Tobacco Use Status: Former Tobacco user Cigarette Packs Per Day: 0.5 e-Cigarette/Vaping Use: Never Used service: No Current occupational status: retired Cognitive needs: No Hearing needs: No Vision needs: No Questionnaire Thrive Questionnaire Date Thrive assessed: 06/21/24 I am a: Patient What is your living situation today?: I choose not to answer this question Within the past 12 months, did the food you bought not last and you didn't have the money to get more?: I choose not to answer this question Within the past 12 months, did you worry whether your food would run out before you got money to buy more?: I choose not to answer this question Do you have trouble paying for medicines?: I choose not to answer this question Do you have trouble getting transportation to medical appointments?: I choose not to answer this question Do you have trouble paying your heating and electricity bill?: I choose not to answer this question Do you have trouble taking care of your child, family member or friend?: I choose not to answer this question Do you have trouble with day-to-day activities such as bathing, preparing meals, shopping, managing finances, etc.?: I choose not to answer this question Are you currently unemployed and looking for a job?: I choose not to answer this question Are you interested in more education?: I choose not to answer this question Please select the resources that you would like help with: None Currently or been in a relationship where the following occur: I choose not to answer THRIVE Score: 0 AUDIT C Alcohol Use Questionnaire (AUDIT-C) 1. How often do you have a drink containing alcohol?: Never 3. How often do you have six or more drinks on one occasion?: Never Total Score: 0 DAYANA-7 AMB Questionnaire DAYANA-7 Date DAYANA - 7 assessed: 06/21/24 Feeling nervous, anxious, or on edge: 0 = Not at all Not being able to stop or control worryin = Several days Worrying too much about different things: 1 = Several days Trouble relaxin = Not at all Being so restless that it is hard to sit still: 0 = Not at all Becoming easily annoyed or irritable: 0 = Not at all Feeling afraid as if something awful might happen: 0 = Not at all Total DAYANA-7 score (0-4 normal; 5-9 mild; 10-14 moderate; 15-21 severe): 2 Source: Developed by Drs. Joe Sanches, Breann Lee, Byron Garza and colleagues, with an educational jah from [employer] Physical exam (Primary Care) Vital Signs: Last Vital Signs Pulse 117 H 03/09/25 13:51 BP 140/82 H 03/09/25 13:51 Pulse Ox 97 03/09/25 13:51 Oxygen Delivery Method Room Air 03/09/25 13:51 BMI result Body Mass Index 32.7 Tobacco/Smoking Status: Tobacco use Status Tobacco use date assessed 08/04/24 03/09/25 13:52 Patient Tobacco Use Status Former Tobacco user 03/09/25 13:52 e-Cigarette/Vaping Use Never Used 03/09/25 13:52 Thrive Assessment: Date of Thrive Assessment Date Thrive assessed 06/21/24 03/09/25 13:52 Currently or been in a relationship where the following occur: I choose not to answer Coding Level of Care Code Est Pt Level 4 (66040) Complex EM visit Add On G2211 Diagnoses Hypertension, essential I10 Lipid disorder E78.9 Anxiety, generalized F41.1 Pre-diabetes R73.03 Chronic obstructive pulmonary disease, unspecified COPD type J44.9 COPD type: unspecified COPD History of stroke Z86.73 Right leg weakness R29.898 Assessment & Plan Assessment & Plan (1) Hypertension, essential: Code(s): I10 - Essential (primary) hypertension Category: Medical (2) Lipid disorder: Code(s): E78.9 - Disorder of lipoprotein metabolism, unspecified Category: Medical (3) Anxiety, generalized: Code(s): F41.1 - Generalized anxiety disorder Category: Medical (4) Pre-diabetes: Code(s): R73.03 - Prediabetes Category: Medical (5) COPD (chronic obstructive pulmonary disease): Comment: Long history of smoking in the past Code(s): J44.9 - Chronic obstructive pulmonary disease, unspecified Category: Medical Qualifiers: COPD type: unspecified COPD Qualified Code(s): J44.9 - Chronic obstructive pulmonary disease, unspecified (6) History of stroke: Code(s): Z86.73 - Personal history of transient ischemic attack (TIA), and cerebral infarction without residual deficits Category: Medical (7) Right leg weakness: Code(s): R29.898 - Other symptoms and signs involving the musculoskeletal system Category: Medical Plan History The patient is a 69-year-old female presenting with hypertension follow-up and dizziness, dietary concerns regarding consumption of orange juice and soda, potentially related GERD symptoms, and overall health check. This is a longitudinal care visit Hypertension: - Recurrent episodes of elevated blood pressure. - Current reading at the visit was 140/82. - The patient suspects elevation due to recent activity and stress from running errands earlier in the day. - Continued monitoring is necessary. Dizziness: - Experiences mild dizziness upon standing occasionally. - Persistent issue but is being managed with medication. - No significant worsening reported. Dietary Concerns related to GERD: - Increased consumption of orange juice and newly acquired consumption of soda. - Advised reduction due to potential exacerbation of GERD symptoms. . Medical History: - Stroke with residual right leg weakness, requires walker for ambulation. - Chronic Obstructive Pulmonary Disease. - Prediabetes. - Lipid disorder. - Hypertension. - Anxiety. - Dyspepsia. Medications: - Duloxetine 30 mg for depression and anxiety. - Losartan 50 mg for hypertension. - Meclizine 25 mg for dizziness. - Metoprolol 50 mg BID for hypertension. - Omeprazole 20 mg daily for GERD. Problem List - Essential Hypertension - Chronic Obstructive Pulmonary Disease (COPD) - Anxiety - Dyspepsia - Lipid Disorder - Prediabetes - Dizziness - Residual weakness post-stroke Diagnostic results - Labs: Completed this morning, results pending. Patient Instructions - Reduce the intake of orange juice to prevent acidity-related symptoms; dilute with water if needed. - Discontinue soda intake to prevent exacerbation of GERD and other potential health issues. - Monitor blood pressure regularly. - Follow up in three months for further evaluation. - continue medications as prescribed - get up slowly to avoid dizziness
[2025-03-09 14:17] VITALS: BP 138/88
== END 2025-03-09 14:15 | disposition home or self-care (01) ==
LOC: HO.HMCC 13:47
PROVIDERS: PCP Internal Medicine; Visit Provider Internal Medicine
DX: I10 Essential (primary) hypertension (principal); E78.9 Disorder of lipoprotein metabolism, unspecified; J44.9 Chronic obstructive pulmonary disease, unspecified; F41.1 Generalized anxiety disorder; R73.03 Prediabetes; Z86.73 Personal history of transient ischemic attack (TIA), and cerebral infarction without residual deficits; R29.898 Other symptoms and signs involving the musculoskeletal system